=== PATIENT | male | born 1940 | race American Indian/Alaskan Native ===

== ENCOUNTER 2018-04-19 12:51 | Inpatient (IN) | payer MEDICARE ==
[2018-04-19] MEDS ORDERED: NACL 0.9% 250ML 250 ML IV ONE ×2 (13:49→15:28)
[2018-04-19] MEDS ORDERED: TYLENOL PR PRN (13:51)
--- NOTE | 2018-04-19 13:52 | Emergency Department Report ---
ED General Adult HPI - General Chief complaint: Dyspnea/Respdistress Stated complaint: AMS/WEAKNESS Time Seen by Provider: 04/19/18 13:39 Source: EMS (ems notes not available at time of chart dictation), RN notes reviewed, old records reviewed Mode of arrival: Stretcher Limitations: Altered Mental Status, Other (patient is demented. Patient is a poor historian.) - History of Present Illness Initial comments: This is a 78-year-old male. The patient is unknown to this provider previously. 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 As per verbal report from the nurses, who in turn received verbal report from EMS, the patient was saturating in the mid 80s at home. The patient is asymptomatic at this time. He has no complaints. In the emergency room, the patient was found to be febrile to 102 rectally, x- ray of the chest demonstrated right lower lobe infiltrate, urinalysis and labs are pending at this time, and the patient will be admitted and treated empirically as a code sepsis. Given his history of renal insufficiency, and ischemic cardiac myopathy with an ejection fraction of 10-15%, the patient will not handle and aggressive fluid resuscitation at the standard recommended 30 mL/ kg IV fluid bolus. Therefore, the patient will be given aliquots of normal saline at 250 mL at a time, and reassessed. The case was presented to the Hospital physician, Dr. Rubio, who accepted the patient, and agreed with this plan of care. It is our shared opinion that an aggressive fluid resuscitation will likely volume overload the patient and precipitate respiratory failure. Given the patient's underlying chronic medical comorbidities, he may have difficulty being weaned from a ventilator, and a developed respiratory musculature fatigue, paralysis and myopathy. Therefore, it is our wish and go to avoid mechanical ventilation if possible. Severity scale (0 -10): 0 Consistency: constant Improves with: none Worsens with: none Associated Symptoms: confusion, fever/chills, shortness of breath, weakness - Related Data Home Medications Medication Instructions Recorded Confirmed Last Taken Furosemide [Lasix TAB] 20 mg PO QDAY 01/30/16 04/19/18 Unknown levETIRAcetam [Keppra TAB] 1,000 mg PO BID 01/30/16 04/19/18 Unknown Acetaminophen [Tylenol] 500 mg PO Q8H PRN 04/19/18 04/19/18 Unknown AtorvaSTATin [Lipitor] 10 mg PO DAILY 04/19/18 04/19/18 Unknown ISOSORBIDE MONOnitrate [Imdur ER] 30 mg PO DAILY 04/19/18 04/19/18 Unknown guaiFENesin/DEXTROMETHORPHAN 2 each PO HS PRN 04/19/18 04/19/18 Unknown [Coricidin Hbp Softgel] predniSONE [Deltasone] 30 mg PO QDAY 04/19/18 04/19/18 Unknown Previous Rx's Medication Instructions Recorded Last Taken Type Carvedilol [Coreg] 6.25 mg PO BID #60 tablet 02/02/16 Unknown Rx Allergies Allergy/AdvReac Type Severity Reaction Status Date / Time No Known Allergies Allergy Verified 04/19/18 14:17 ED Review of Systems ROS: Stated complaint: AMS/WEAKNESS Other details as noted in HPI Comment: Unobtainable due to pts medical conditions ED Past Medical Hx - Past Medical History Previous Medical History?: Yes Hx Hypertension: Yes Hx CVA: Yes Hx Heart Attack/AMI: Yes Hx Renal Disease: Yes Hx Seizures: Yes - Social History Smoking Status: Never Smoker - Medications Home Medications: Home Medications Medication Instructions Recorded Confirmed Last Taken Type Furosemide [Lasix TAB] 20 mg PO QDAY 01/30/16 04/19/18 Unknown History levETIRAcetam [Keppra TAB] 1,000 mg PO BID 01/30/16 04/19/18 Unknown History Carvedilol [Coreg] 6.25 mg PO BID #60 tablet 02/02/16 04/19/18 Unknown Rx Acetaminophen [Tylenol] 500 mg PO Q8H PRN 04/19/18 04/19/18 Unknown History AtorvaSTATin [Lipitor] 10 mg PO DAILY 04/19/18 04/19/18 Unknown History ISOSORBIDE MONOnitrate [Imdur ER] 30 mg PO DAILY 04/19/18 04/19/18 Unknown History guaiFENesin/DEXTROMETHORPHAN 2 each PO HS PRN 04/19/18 04/19/18 Unknown History [Coricidin Hbp Softgel] predniSONE [Deltasone] 30 mg PO QDAY 04/19/18 04/19/18 Unknown History ED Physical Exam - General Limitations: Physical Limitation General appearance: in no apparent distress - Head Head exam: Present: atraumatic, normocephalic - Eye Eye exam: Present: normal appearance - ENT ENT exam: Present: mucous membranes dry - Neck Neck exam: Present: normal inspection, full ROM - Respiratory Respiratory exam: Present: rhonchi. Absent: respiratory distress - Cardiovascular Cardiovascular Exam: Present: regular rate, normal rhythm, normal heart sounds. Absent: bradycardia, tachycardia, irregular rhythm, systolic murmur, diastolic murmur, rubs, gallop - GI/Abdominal GI/Abdominal exam: Present: soft, normal bowel sounds. Absent: distended, tenderness, guarding, rebound, rigid, pulsatile mass - Rectal Rectal exam: Present: normal inspection (no sacral ulcers noted) - exam: Present: normal inspection External exam: Present: normal external exam - Extremities Exam Extremities exam: Present: normal inspection. Absent: tenderness, pedal edema, joint swelling, calf tenderness - Back Exam Back exam: Present: normal inspection. Absent: tenderness, CVA tenderness (R), paraspinal tenderness, vertebral tenderness - Neurological Exam Neurological exam: Present: alert, motor sensory deficit (chronic residual right -sided weakness), other (there is no facial droop) - Psychiatric Psychiatric exam: Present: normal affect, normal mood - Skin Skin exam: Present: warm, dry, intact, normal color. Absent: rash ED Course Vital Signs 04/19/18 13:07 Temperature 99.3 F Pulse Rate 98 H Respiratory 16 Rate Blood Pressure 110/62 Blood Pressure 124/84 [Right] O2 Sat by Pulse 97 Oximetry - Reevaluation(s) Reevaluation #1: 04/19/18 15:29 Saturating well. No respiratory distress. Patient will get another 250 mL of normal saline. The urinalysis is pending. ED Medical Decision Making - Lab Data Result diagrams: 04/19/18 14:05 04/19/18 14:05 Vital Signs 04/19/18 13:07 Temperature 99.3 F Pulse Rate 98 H Respiratory 16 Rate Blood Pressure 110/62 Blood Pressure 124/84 [Right] O2 Sat by Pulse 97 Oximetry - EKG Data -: EKG Interpreted by [place] - EKG Data 04/19/18 14:35 Sinus, 99 bpm, left axis deviation, QTC prolonged, motion artifact, premature ventricular contraction - Radiology Data Radiology results: report reviewed, image reviewed interpreted by me: X-ray of the chest, interpreted by by this provider, right lower lobe pneumonia ort Referring Physician: AMANDA BEAULIEU Patient Name: BAILEE CAMPOS Date of : 1940 Sex: Male Report Date: 2018-04-19 Report Status: Finalized Findings [facility] [address] [place] [address] XRay Report Signed Patient: BAILEE CAMPOS MR#: [id number] : 1940 Acct:[id number] Age/Sex: 78 / M ADM Date: 04/19/18 Loc: ED Attending Dr: Ordering Physician: AMANDA BEAULIEU MD Date of Service: 04/19/18 Procedure(s): XR chest 1V ap Accession Number(s): [id number] cc: AMANDA BEAULIEU MD Fluoro Time In Minutes: AP CHEST: HISTORY: Shortness of breath Compared to 01/30/16. Mild cardiomegaly and borderline pulmonary venous congestion are identified. There are subtle bibasilar opacities which could represent congestive changes. Early infiltrates are thought less likely but cannot be entirely excluded. No consolidation, pleural effusion or pneumothorax. IMPRESSION: Mild cardiomegaly. Bibasilar opacities as described. I favor congestion. Transcribed By: TTR Dictated By: POLI HOLCOMB JR, MD Electronically Authenticated By: POLI HOLCOMB JR, MD Signed Date/Time: 04/19/18 3147 - Medical Decision Making Differential diagnosis, including but not limited to: Pneumonia, sepsis, bacteremia, urinary tract infection Assessment and plan: 78-year-old male with fever, heart rate greater than 90, focal pulmonary findings, x-ray of the chest suggest pneumonia. Meets systemic inflammatory response syndrome criteria. Attempting airway at this time. Has multiple medical comorbidities. Patient will require admission to the hospital for medical management. Critical care attestation.: If time is entered above; I have spent that time in minutes in the direct care of this critically ill patient, excluding procedure time. ED Disposition Clinical Impression: Sepsis Qualifiers: Sepsis type: sepsis due to unspecified organism Qualified Code(s): A41.9 - Sepsis, unspecified organism Disposition: OP ADMIT IP TO THIS HOSP Is pt being admited?: Yes Condition: Fair Referrals: PRIMARY CARE,MD [Primary Care Provider] - 3-5 Days
[2018-04-19] MEDS ORDERED: ROCEPHIN/NS 2 GM/100 ML 2 GM/100 ML BAG IV SCH (14:00)
[2018-04-19 14:30] LABS: Hematocrit 43.3 % (35.5-45.6); Hemoglobin 13.9 gm/dl (11.8-15.2); Mean Corpuscular HGB Conc 32 % (32-34); Mean Corpuscular Hemoglobin 29 pg (28-32); Mean Corpuscular Volume 91 fl (84-94); Platelet Count 116 K/mm3 (140-440); Red Blood Count 4.74 M/mm3 (3.65-5.03); Red Cell Distribution Width 15.3 % (13.2-15.2)
--- NOTE | 2018-04-19 14:39 | History and Physical Report ---
History of Present Illness Chief complaint: He looks sick History of present illness: 78 YO Male with CVA with RHP, Debility, Dementia, Systolic CHF (EF 15%),CO, Seizure Disorder, HTN, Dysphagia presents to ED for evaluation. Pt is confused and unable to provide history. Pt history provided by family who is at bedside during exam and interview. Pt family states that the patient has become progressively weak and more confused over the past week, with worsening symptoms over the past 2 days. EMS notified and upon arrival the patient was found to be hypoxemis with pulse oxygenation in the 80's as well as fever to 102. Pt transported to [facility] for further care and evaluation. Pt seen and evaluated in ED and found to have Pneumonia complicated by sepsis, and Acute respiratory failure. Pt admitted to medical floor, and initiated on sepsis protocol. Given his history of renal insufficiency, and ischemic cardiac myopathy with an ejection fraction of 10-15%, the patient will not handle and aggressive fluid resuscitation at the standard recommended 30 mL/kg IV fluid bolus. Therefore, the patient will be given aliquots of normal saline at 250 mL at a time, and reassessed. Past History Past Medical History: heart failure, hypertension, seizures, stroke Past Surgical History: No surgical history, Other (reviewed) Social history: , lives with family. denies: smoking, alcohol abuse, prescription drug abuse Family history: hypertension Medications and Allergies Allergies Allergy/AdvReac Type Severity Reaction Status Date / Time No Known Allergies Allergy Verified 04/19/18 14:17 Home Medications Medication Instructions Recorded Confirmed Last Taken Type Furosemide [Lasix TAB] 20 mg PO QDAY 01/30/16 04/19/18 Unknown History levETIRAcetam [Keppra TAB] 1,000 mg PO BID 01/30/16 04/19/18 Unknown History Carvedilol [Coreg] 6.25 mg PO BID #60 tablet 02/02/16 04/19/18 Unknown Rx Acetaminophen [Tylenol] 500 mg PO Q8H PRN 04/19/18 04/19/18 Unknown History AtorvaSTATin [Lipitor] 10 mg PO DAILY 04/19/18 04/19/18 Unknown History ISOSORBIDE MONOnitrate [Imdur ER] 30 mg PO DAILY 04/19/18 04/19/18 Unknown History guaiFENesin/DEXTROMETHORPHAN 2 each PO HS PRN 04/19/18 04/19/18 Unknown History [Coricidin Hbp Softgel] predniSONE [Deltasone] 30 mg PO QDAY 04/19/18 04/19/18 Unknown History Active Meds: Active Medications Acetaminophen (Tylenol) 650 mg DE Q4H PRN PRN Reason: Pain, Mild (1-3) Azithromycin 500 mg/ Sodium (Chloride) 250 mls @ 250 mls/hr IV Q24HR LUISA Ceftriaxone Sodium (Rocephin/Ns 2 Gm/100 Ml) 2 gm in 100 mls @ 200 mls/hr IV Q24HR LUISA; Protocol Review of Systems ROS unobtainable: due to mental status Exam - Constitutional Vitals: Temp Pulse Resp BP Pulse Ox 99.3 F 99 H 18 124/84 97 04/19/18 13:07 04/19/18 13:07 04/19/18 13:07 04/19/18 13:07 04/19/18 13:07 General appearance: Present: mild distress, cachectic - EENT Eyes: Present: PERRL ENT: hearing intact, clear oral mucosa - Neck Neck: Present: supple, normal ROM - Respiratory Respiratory effort: labored Respiratory: bilateral: diminished - Cardiovascular Heart Sounds: Present: S1 & S2. Absent: rub, click - Extremities Extremities: pulses symmetrical, No edema Peripheral Pulses: abnormal (capillary refill greater than 3.6 seconds) - Abdominal General gastrointestinal: Present: soft, non-tender, non-distended, normal bowel sounds Male genitourinary: Present: normal - Integumentary Integumentary: Present: clear, warm, dry, clammy, decreased turgor - Musculoskeletal Musculoskeletal: right sided weakness - Psychiatric Psychiatric: no intact judgment & insight, no memory intact - Neurologic Neurologic: no moves all extremities, no gait normal Results - Labs CBC & Chem 7: 04/19/18 14:05 04/19/18 14:05 Assessment and Plan - Patient Problems (1) Sepsis Current Visit: Yes Status: Acute Qualifiers: Sepsis type: sepsis due to unspecified organism Qualified Code(s): A41.9 - Sepsis, unspecified organism Plan to address problem: IV antibiotics, monitor uop q shift, chest x ray, urinalysis, blood cultures, serial lactic acid, strict I/O, CBC, CMP, (2) Pneumonia Current Visit: Yes Status: Acute Qualifiers: Laterality: right Lung location: lower lobe of lung Plan to address problem: IV antibiotics, chest x ray, supplemental oxygen, blood cultures, nebulizer therapy, (3) Respiratory failure Current Visit: Yes Status: Acute Qualifiers: Respiratory failure complication: hypoxia Plan to address problem: Supplemental oxygen, nebulizer therapy, aspiration precautions, NIPPV as clinically indicated, chest x ray (4) Debility Current Visit: Yes Status: Acute Plan to address problem: SNF Placement requested as per family, case management consulted. (5) Acute on chronic diastolic CHF (congestive heart failure) Current Visit: No Status: Acute Plan to address problem: Strict I/O, daily weight, diuresis as tolerated, monitor uop q shift, Chest x ray, afterload reduction, supplemental oxygen, (6) Hypertension Current Visit: No Status: Acute Qualifiers: Hypertension type: essential hypertension Qualified Code(s): I10 - Essential (primary) hypertension Plan to address problem: monitor bp q shift, resume prehospital antihypertensive therapy (7) DVT prophylaxis Current Visit: No Status: Acute Plan to address problem: SCD to BLE while in bed
--- NOTE | 2018-04-19 14:47 | XRay Report ---
AP CHEST: HISTORY: Shortness of breath Compared to 01/30/16. Mild cardiomegaly and borderline pulmonary venous congestion are identified. There are subtle bibasilar opacities which could represent congestive changes. Early infiltrates are thought less likely but cannot be entirely excluded. No consolidation, pleural effusion or pneumothorax. IMPRESSION: Mild cardiomegaly. Bibasilar opacities as described. I favor congestion.
[2018-04-19 14:48] LABS: Albumin 3.4 g/dL (3.9-5); Calcium 8.5 mg/dL (8.4-10.2)
[2018-04-19] MEDS: ZITHROMAX 500 MG in NACL 0.9% 250ML 250 ML IV SCH (15:11)
[2018-04-19 15:59] LABS: Basophils % (Manual) 0 % (0.0-1.8); Eosinophils % (Manual) 0 % (0.0-4.3); Total Cells Counted 100
[2018-04-19 16:06] LABS: Anisocytosis 1+
[2018-04-19 16:07] LABS: Ovalocytes 1+; Platelet Estimate Consistent w Auto
[2018-04-19] MEDS: cefTRIAXone 2 GM in NACL 0.9% 20 ML IV SCH (16:08)
[2018-04-19] MEDS ORDERED: GUAIFENESIN PO PRN (20:57)
[2018-04-19] MEDS ORDERED: DEXTROMETHORPHAN PO PRN (20:57)
[2018-04-19] MEDS ORDERED: TYLENOL PO PRN (20:57)
[2018-04-19 21:10] LABS: Amorphous Crystals,Urine 2+; Bilirubin,Urine NEG (Negative); Color,Urine Yellow (Yellow)
[2018-04-19 21:11] LABS: Blood,Urine MOD (Negative)
[2018-04-19] MEDS: KEPPRA PO SCH (22:57)
[2018-04-19] MEDS: COREG PO SCH (22:57)
[2018-04-20] MEDS: IMDUR PO SCH (10:45)
[2018-04-20] MEDS: DELTASONE PO SCH (10:45)
[2018-04-20] MEDS: LASIX PO SCH (10:45)
[2018-04-20] MEDS: COREG PO SCH ×2 (10:45→22:44)
[2018-04-20] MEDS: KEPPRA PO SCH ×2 (10:45→22:43)
[2018-04-20] MEDS: ZITHROMAX 500 MG in NACL 0.9% 250ML 250 ML IV SCH (12:47)
[2018-04-20] MEDS: cefTRIAXone 2 GM in NACL 0.9% 20 ML IV SCH (16:46)
--- NOTE | 2018-04-20 18:37 | Progress Note ---
Assessment and Plan /Acute encephalopathy likely from underlying PNA/sepsis treat underlying cause / Sepsis likely due to PNA IV antibiotics, monitor uop q shift, chest x ray, urinalysis, blood cultures, serial lactic acid, strict I/O, CBC, CMP, / Pneumonia IV antibiotics, chest x ray, supplemental oxygen, blood cultures, nebulizer therapy, /Acute Respiratory failure due to PNA and underlying CHF Cont Supplemental oxygen, nebulizer therapy, aspiration precautions, NIPPV as clinically indicated, chest x ray / Debility SNF Placement requested as per family, case management consulted. /Acute on chronic systolic CHF (congestive heart failure) Ef 10-15% on 2d echo 2015, will order repeat echo Strict I/O, daily weight, diuresis as tolerated, monitor uop q shift, Chest x ray, afterload reduction, supplemental oxygen, / Hypertension monitor bp q shift, resume prehospital antihypertensive therapy /CKD , Cr at baseline / DVT prophylaxis SCD to BLE while in bed Physical Exam: General appearance: Present: mild distress, cachectic - EENT Eyes: Present: PERRL ENT: hearing intact, clear oral mucosa - Neck Neck: Present: supple, normal ROM - Respiratory Respiratory effort: labored Respiratory: bilateral: diminished - Cardiovascular Heart Sounds: Present: S1 & S2. Absent: rub, click - Extremities Extremities: pulses symmetrical, No edema Peripheral Pulses: abnormal (capillary refill greater than 3.6 seconds) - Abdominal General gastrointestinal: Present: soft, non-tender, non-distended, normal bowel sounds Male genitourinary: Present: normal - Integumentary Integumentary: Present: clear, warm, dry, clammy, decreased turgor - Musculoskeletal Musculoskeletal: right sided weakness - Psychiatric Psychiatric: no intact judgment & insight, no memory intact - Neurologic Neurologic: no moves all extremities, no gait normal Subjective Date of service: 04/20/18 Interval history: Pt seen and examined Denies chest pain, but admits SOB Objective - Constitutional Vitals: Vital Signs - 12hr 04/20/18 04/20/18 04/20/18 07:50 11:40 12:30 Temperature 97.9 F Pulse Rate 67 68 54 L Respiratory 18 16 18 Rate Blood Pressure 130/88 127/89 142/84 O2 Sat by Pulse 100 99 Oximetry 04/20/18 04/20/18 04/20/18 12:40 13:31 13:41 Temperature Pulse Rate 58 L 59 L 56 L Respiratory 16 12 13 Rate Blood Pressure 146/79 146/79 146/79 O2 Sat by Pulse 99 100 99 Oximetry 04/20/18 04/20/18 04/20/18 13:51 14:01 14:11 Temperature Pulse Rate 62 78 52 L Respiratory 12 16 21 Rate Blood Pressure 147/81 146/79 146/79 O2 Sat by Pulse 98 97 99 Oximetry 04/20/18 04/20/18 14:21 14:31 Temperature Pulse Rate 53 L 54 L Respiratory 21 19 Rate Blood Pressure 146/79 146/79 O2 Sat by Pulse 99 99 Oximetry - Labs CBC & Chem 7: 04/19/18 14:05 04/19/18 14:05
[2018-04-20] MEDS ORDERED: GUAIFENESIN DM SYRUP PO PRN (22:00)
[2018-04-20] MEDS ORDERED: ROBITUSSIN PO PRN (22:00)
[2018-04-21] MEDS ORDERED: D5NS 1,000 ML IV SCH ×2 (03:00→04:00)
[2018-04-21 03:26] LABS: Calcium 8.2 mg/dL (8.4-10.2)
[2018-04-21] MEDS: DUONEB *Not for PRN Use IH SCH ×3 (07:20→19:54)
--- NOTE | 2018-04-21 08:03 | Progress Note ---
Assessment and Plan Assessment and plan: --Acute on chronic systolic congestive heart failure; ejection fraction 10-15%[ 2016] Dilated cardiomyopathy, continue anti-failure medications, input output monitoring Follow echocardiogram, consider cardiology evaluation if needed --Acute metabolic encephalopathy; Multifactorial , due to underlying PNA/sepsis, Treat the underlying cause --Sepsis; due to PNA , and he IV antibiotics and follow cultures IV antibiotics, follow cultures --Pneumonia Supportive care, antibiotics, cultures, cough medicine as needed --Acute hypoxic Respiratory failure; Secondary to underlying pneumonia as well as acute exacerbation of congestive heart failure Continue current management, oxygen, BiPAP as needed -- Hypertension; moderate control Continue current antihypertensives and when necessary medications --Acute on CKD stage III ; due to ATN, creatinine trending down Closely monitor renal function, avoid nephrotoxins, nephrology evaluation if needed --DVT prophylaxis; Lovenox SCD to BLE while in bed --Advanced age and Debility; Physical therapy and supportive care --DC planning ;per case management Possible SNF Placement requested as per family, History Interval history: Patient seen and examined this morning medical records reviewed No new events reported by the nursing Patient is comfortable and vital signs reviewed Hospitalist Physical - Constitutional Vitals: Temp Pulse Resp BP Pulse Ox 98.6 F 74 18 131/86 98 04/21/18 01:46 04/21/18 07:25 04/21/18 07:25 04/21/18 01:46 04/21/18 07:26 General appearance: Present: no acute distress, cachectic, disheveled - EENT Eyes: Present: PERRL, EOM intact - Neck Neck: Present: supple, normal ROM - Respiratory Respiratory effort: normal Respiratory: bilateral: diminished, negative: rales, rhonchi, wheezing - Cardiovascular Rhythm: regular Heart Sounds: Present: S1 & S2 - Extremities Extremities: no ischemia, No edema - Abdominal General gastrointestinal: soft, non-tender, non-distended, normal bowel sounds - Integumentary Integumentary: Present: clear, warm - Psychiatric Psychiatric: cooperative, other (confused at times) - Neurologic Neurologic: moves all extremities Results - Labs CBC & Chem 7: 04/19/18 14:05 04/21/18 02:51 Labs: Laboratory Last Values WBC 9.2 K/mm3 (4.5-11.0) 04/19/18 14:05 RBC 4.74 M/mm3 (3.65-5.03) 04/19/18 14:05 Hgb 13.9 gm/dl (11.8-15.2) 04/19/18 14:05 Hct 43.3 % (35.5-45.6) 04/19/18 14:05 MCV 91 fl (84-94) 04/19/18 14:05 MCH 29 pg (28-32) 04/19/18 14:05 MCHC 32 % (32-34) 04/19/18 14:05 RDW 15.3 % (13.2-15.2) H 04/19/18 14:05 Plt Count 116 K/mm3 (140-440) L 04/19/18 14:05 Coffee % (Auto) Nursery Teacher 04/19/18 14:05 Add Manual Diff Complete 04/19/18 14:05 Total Counted 100 04/19/18 14:05 Seg Neuts % (Manual) 72.0 % (40.0-70.0) H 04/19/18 14:05 Band Neutrophils % 0 % 04/19/18 14:05 Lymphocytes % (Manual) 12.0 % (13.4-35.0) L 04/19/18 14:05 Reactive Lymphs % (Man) 0 % 04/19/18 14:05 Monocytes % (Manual) 16.0 % (0.0-7.3) H 04/19/18 14:05 Eosinophils % (Manual) 0 % (0.0-4.3) 04/19/18 14:05 Basophils % (Manual) 0 % (0.0-1.8) 04/19/18 14:05 Metamyelocytes % 0 % 04/19/18 14:05 Myelocytes % 0 % 04/19/18 14:05 Promyelocytes % 0 % 04/19/18 14:05 Blast Cells % 0 % 04/19/18 14:05 Nucleated RBC % Not Reportable 04/19/18 14:05 Seg Neutrophils # Man 6.6 K/mm3 (1.8-7.7) 04/19/18 14:05 Band Neutrophils # 0.0 K/mm3 04/19/18 14:05 Lymphocytes # (Manual) 1.1 K/mm3 (1.2-5.4) L 04/19/18 14:05 Abs React Lymphs (Man) 0.0 K/mm3 04/19/18 14:05 Monocytes # (Manual) 1.5 K/mm3 (0.0-0.8) H 04/19/18 14:05 Eosinophils # (Manual) 0.0 K/mm3 (0.0-0.4) 04/19/18 14:05 Basophils # (Manual) 0.0 K/mm3 (0.0-0.1) 04/19/18 14:05 Metamyelocytes # 0.0 K/mm3 04/19/18 14:05 Myelocytes # 0.0 K/mm3 04/19/18 14:05 Promyelocytes # 0.0 K/mm3 04/19/18 14:05 Blast Cells # 0.0 K/mm3 04/19/18 14:05 WBC Morphology Not Reportable 04/19/18 14:05 Hypersegmented Neuts Not Reportable 04/19/18 14:05 Hyposegmented Neuts Not Reportable 04/19/18 14:05 Hypogranular Neuts Not Reportable 04/19/18 14:05 Smudge Cells Not Reportable 04/19/18 14:05 Toxic Granulation Not Reportable 04/19/18 14:05 Toxic Vacuolation Not Reportable 04/19/18 14:05 Dohle Bodies Not Reportable 04/19/18 14:05 Pelger-Huet Anomaly Not Reportable 04/19/18 14:05 Karla Rods Not Reportable 04/19/18 14:05 Platelet Estimate Consistent w auto 04/19/18 14:05 Clumped Platelets Not Reportable 04/19/18 14:05 Plt Clumps, EDTA Not Reportable 04/19/18 14:05 Large Platelets Not Reportable 04/19/18 14:05 Giant Platelets Not Reportable 04/19/18 14:05 Platelet Satelliting Not Reportable 04/19/18 14:05 Plt Morphology Comment Not Reportable 04/19/18 14:05 RBC Morphology Not Reportable 04/19/18 14:05 Dimorphic RBCs Not Reportable 04/19/18 14:05 Polychromasia Not Reportable 04/19/18 14:05 Hypochromasia Not Reportable 04/19/18 14:05 Poikilocytosis Not Reportable 04/19/18 14:05 Anisocytosis 1+ 04/19/18 14:05 Microcytosis Not Reportable 04/19/18 14:05 Macrocytosis Not Reportable 04/19/18 14:05 Spherocytes Not Reportable 04/19/18 14:05 Pappenheimer Bodies Not Reportable 04/19/18 14:05 Sickle Cells Not Reportable 04/19/18 14:05 Target Cells Not Reportable 04/19/18 14:05 Tear Drop Cells Not Reportable 04/19/18 14:05 Ovalocytes 1+ 04/19/18 14:05 Helmet Cells Not Reportable 04/19/18 14:05 Gallagher-Denio Bodies Not Reportable 04/19/18 14:05 [place] Rings Not Reportable 04/19/18 14:05 Debora Cells Not Reportable 04/19/18 14:05 Bite Cells Not Reportable 04/19/18 14:05 Crenated Cell Not Reportable 04/19/18 14:05 Elliptocytes Not Reportable 04/19/18 14:05 Acanthocytes (Spur) Not Reportable 04/19/18 14:05 Rouleaux Not Reportable 04/19/18 14:05 Hemoglobin C Crystals Not Reportable 04/19/18 14:05 Schistocytes Not Reportable 04/19/18 14:05 Malaria parasites Not Reportable 04/19/18 14:05 Ben Bodies Not Reportable 04/19/18 14:05 Hem Pathologist Commnt No 04/19/18 14:05 Sodium 146 mmol/L (137-145) H 04/21/18 02:51 Potassium 4.7 mmol/L (3.6-5.0) 04/21/18 02:51 Chloride 110.2 mmol/L (98-107) H 04/21/18 02:51 Carbon Dioxide 24 mmol/L (22-30) 04/21/18 02:51 Anion Gap 17 mmol/L 04/21/18 02:51 BUN 38 mg/dL (9-20) H 04/21/18 02:51 Creatinine 1.9 mg/dL (0.8-1.5) H 04/21/18 02:51 Estimated GFR 42 ml/min 04/21/18 02:51 BUN/Creatinine Ratio 20 % 04/21/18 02:51 Glucose 83 mg/dL (75-100) 04/21/18 02:51 POC Glucose 98 (70-105) 04/19/18 14:44 Lactic Acid 1.70 mmol/L (0.7-2.0) 04/19/18 15:13 Calcium 8.2 mg/dL (8.4-10.2) L 04/21/18 02:51 Total Bilirubin 1.10 mg/dL (0.1-1.2) 04/19/18 14:05 AST 64 units/L (5-40) H 04/19/18 14:05 ALT 78 units/L (7-56) H 04/19/18 14:05 Alkaline Phosphatase 95 units/L (35-129) 04/19/18 14:05 Total Creatine Kinase 57 units/L (55-170) 04/19/18 14:05 Total Protein 6.4 g/dL (6.3-8.2) 04/19/18 14:05 Albumin 3.4 g/dL (3.9-5) L 04/19/18 14:05 Albumin/Globulin Ratio 1.1 % 04/19/18 14:05 Urine Color Yellow (Yellow) 04/19/18 20:39 Urine Turbidity Clear (Clear) 04/19/18 20:39 Urine pH 5.0 (5.0-7.0) 04/19/18 20:39 Ur Specific [place] 1.019 (1.003-1.030) 04/19/18 20:39 Urine Protein 100 mg/dl mg/dL (Negative) 04/19/18 20:39 Urine Glucose (UA) Neg mg/dL (Negative) 04/19/18 20:39 Urine Ketones Neg mg/dL (Negative) 04/19/18 20:39 Urine Blood Mod (Negative) 04/19/18 20:39 Urine Nitrite Neg (Negative) 04/19/18 20:39 Urine Bilirubin Neg (Negative) 04/19/18 20:39 Urine Urobilinogen 2.0 mg/dL (<2.0) 04/19/18 20:39 Ur Leukocyte Esterase Neg (Negative) 04/19/18 20:39 Urine WBC (Auto) 2.0 /HPF (0.0-6.0) 04/19/18 20:39 Urine RBC (Auto) 2.0 /HPF (0.0-6.0) 04/19/18 20:39 Urine WBC Clumps 2+ /HPF 04/19/18 20:39 Amorphous Crystals 2+ 04/19/18 20:39
[2018-04-21] MEDS: DELTASONE PO SCH (10:16)
[2018-04-21] MEDS: LASIX PO SCH (10:16)
[2018-04-21] MEDS: KEPPRA PO SCH ×2 (10:16→21:59)
[2018-04-21] MEDS: ZITHROMAX PO SCH (10:16)
[2018-04-21] MEDS: IMDUR PO SCH (10:16)
[2018-04-21] MEDS: COREG PO SCH ×3 (10:17→21:59)
[2018-04-21] MEDS: HEPARIN SUB-Q SCH ×2 (10:17→22:00)
[2018-04-21] MEDS ORDERED: COREG PO SCH (14:43)
[2018-04-21] MEDS: cefTRIAXone 2 GM in NACL 0.9% 20 ML IV SCH (14:54)
--- NOTE | 2018-04-21 15:24 | Event Note ---
Date: 04/21/18 Nurse reported an episode of 27 beat V. tach on the monitoring coordinator. The patient was asymptomatic during that period, has severe dilated cardiomyopathy Ejection fraction of 10-15%2015, patient is already on beta blockers , echocardiogram is pending today Discussed with asset liability analyst and requested a consult, advised to increase beta blockers Check electrolytes and TSH. Patient needs ICD Increased Coreg dose, requested TSH and electrolytes Plan of care reviewed with the nurse
[2018-04-21] MEDS: CORDARONE PO SCH (22:00)
[2018-04-22] MEDS: DUONEB *Not for PRN Use IH SCH ×4 (02:45→20:35)
[2018-04-22 06:07] LABS: Calcium 7.9 mg/dL (8.4-10.2)
--- NOTE | 2018-04-22 10:40 | Fluoroscopy Report ---
MODIFIED BARIUM SWALLOW History: dysphagia, cough. Findings: Video radiography was provided by the radiologist for speech therapy to assess the swallowing mechanism. 1 fluoroscopic image was captured. Impression: Successful modified barium swallow.
[2018-04-22] MEDS: DELTASONE PO SCH (10:50)
[2018-04-22] MEDS: ZITHROMAX PO SCH (10:50)
[2018-04-22] MEDS: KEPPRA PO SCH ×2 (10:51→21:52)
[2018-04-22] MEDS: LASIX PO SCH (10:55)
[2018-04-22] MEDS: COREG PO SCH ×2 (11:04→21:52)
[2018-04-22] MEDS: CORDARONE PO SCH ×2 (11:04→21:52)
[2018-04-22] MEDS: IMDUR PO SCH (11:05)
[2018-04-22] MEDS: HEPARIN SUB-Q SCH ×2 (11:05→21:53)
--- NOTE | 2018-04-22 13:06 | Progress Note ---
Assessment and Plan Assessment and plan: --Nonsustained VT; on monitor Patient asymptomatic, in the setting of dilated cardiomyopathy Patient would benefit by ICD placement, cardiology consulted --Acute on chronic systolic congestive heart failure; EF 10-15%[2016] Dilated cardiomyopathy, continue anti-failure medications, input output monitoring echocardiogram for EF, follow cardiology recommendations --Acute metabolic encephalopathy; mild improvement Multifactorial , due to underlying PNA/sepsis, Treat the underlying cause --Sepsis; due to PNA , dyspnea antibiotics follow cultures --Pneumonia antibiotics, cultures, cough medicine as needed --Acute hypoxic Respiratory failure; Secondary to underlying pneumonia as well as acute exacerbation of congestive heart failure Continue current management, oxygen, BiPAP as needed -- Hypertension; moderate control Continue current antihypertensives and when necessary medications --Acute on CKD stage III ; due to ATN, creatinine trending down Creatinine 1.7 today ,avoid nephrotoxins, nephrology evaluation if needed --DVT prophylaxis; Lovenox and SCDs --DC planning ;per case management Possible SNF Placement requested as per family, History Interval history: Patient seen and examined Records reviewed No new events reported Patient comfortable minimally communicative Jewel signs reviewed Hospitalist Physical - Constitutional Vitals: Temp Pulse Resp BP Pulse Ox 97.9 F 54 L 20 121/67 99 04/22/18 07:45 04/22/18 11:42 04/22/18 11:01 04/22/18 11:05 04/22/18 10:00 General appearance: Present: no acute distress, cachectic, disheveled - EENT Eyes: Present: PERRL, EOM intact - Neck Neck: Present: supple, normal ROM - Respiratory Respiratory effort: normal Respiratory: bilateral: diminished, rales, negative: rhonchi, wheezing - Cardiovascular Rhythm: regular Heart Sounds: Present: S1 & S2 - Extremities Extremities: no ischemia, No edema - Abdominal General gastrointestinal: soft, non-tender, non-distended, normal bowel sounds - Integumentary Integumentary: Present: clear, warm - Psychiatric Psychiatric: appropriate mood/affect, cooperative - Neurologic Neurologic: CNII-XII intact, moves all extremities Results - Labs CBC & Chem 7: 04/19/18 14:05 04/22/18 05:08 Labs: Laboratory Last Values WBC 9.2 K/mm3 (4.5-11.0) 04/19/18 14:05 RBC 4.74 M/mm3 (3.65-5.03) 04/19/18 14:05 Hgb 13.9 gm/dl (11.8-15.2) 04/19/18 14:05 Hct 43.3 % (35.5-45.6) 04/19/18 14:05 MCV 91 fl (84-94) 04/19/18 14:05 MCH 29 pg (28-32) 04/19/18 14:05 MCHC 32 % (32-34) 04/19/18 14:05 RDW 15.3 % (13.2-15.2) H 04/19/18 14:05 Plt Count 116 K/mm3 (140-440) L 04/19/18 14:05 [place] % (Auto) Veneer Marker 04/19/18 14:05 Add Manual Diff Complete 04/19/18 14:05 Total Counted 100 04/19/18 14:05 Seg Neuts % (Manual) 72.0 % (40.0-70.0) H 04/19/18 14:05 Band Neutrophils % 0 % 04/19/18 14:05 Lymphocytes % (Manual) 12.0 % (13.4-35.0) L 04/19/18 14:05 Reactive Lymphs % (Man) 0 % 04/19/18 14:05 Monocytes % (Manual) 16.0 % (0.0-7.3) H 04/19/18 14:05 Eosinophils % (Manual) 0 % (0.0-4.3) 04/19/18 14:05 Basophils % (Manual) 0 % (0.0-1.8) 04/19/18 14:05 Metamyelocytes % 0 % 04/19/18 14:05 Myelocytes % 0 % 04/19/18 14:05 Promyelocytes % 0 % 04/19/18 14:05 Blast Cells % 0 % 04/19/18 14:05 Nucleated RBC % Not Reportable 04/19/18 14:05 Seg Neutrophils # Man 6.6 K/mm3 (1.8-7.7) 04/19/18 14:05 Band Neutrophils # 0.0 K/mm3 04/19/18 14:05 Lymphocytes # (Manual) 1.1 K/mm3 (1.2-5.4) L 04/19/18 14:05 Abs React Lymphs (Man) 0.0 K/mm3 04/19/18 14:05 Monocytes # (Manual) 1.5 K/mm3 (0.0-0.8) H 04/19/18 14:05 Eosinophils # (Manual) 0.0 K/mm3 (0.0-0.4) 04/19/18 14:05 Basophils # (Manual) 0.0 K/mm3 (0.0-0.1) 04/19/18 14:05 Metamyelocytes # 0.0 K/mm3 04/19/18 14:05 Myelocytes # 0.0 K/mm3 04/19/18 14:05 Promyelocytes # 0.0 K/mm3 04/19/18 14:05 Blast Cells # 0.0 K/mm3 04/19/18 14:05 WBC Morphology Not Reportable 04/19/18 14:05 Hypersegmented Neuts Not Reportable 04/19/18 14:05 Hyposegmented Neuts Not Reportable 04/19/18 14:05 Hypogranular Neuts Not Reportable 04/19/18 14:05 Smudge Cells Not Reportable 04/19/18 14:05 Toxic Granulation Not Reportable 04/19/18 14:05 Toxic Vacuolation Not Reportable 04/19/18 14:05 Dohle Bodies Not Reportable 04/19/18 14:05 Pelger-Huet Anomaly Not Reportable 04/19/18 14:05 Karla Rods Not Reportable 04/19/18 14:05 Platelet Estimate Consistent w auto 04/19/18 14:05 Clumped Platelets Not Reportable 04/19/18 14:05 Plt Clumps, EDTA Not Reportable 04/19/18 14:05 Large Platelets Not Reportable 04/19/18 14:05 Giant Platelets Not Reportable 04/19/18 14:05 Platelet Satelliting Not Reportable 04/19/18 14:05 Plt Morphology Comment Not Reportable 04/19/18 14:05 RBC Morphology Not Reportable 04/19/18 14:05 Dimorphic RBCs Not Reportable 04/19/18 14:05 Polychromasia Not Reportable 04/19/18 14:05 Hypochromasia Not Reportable 04/19/18 14:05 Poikilocytosis Not Reportable 04/19/18 14:05 Anisocytosis 1+ 04/19/18 14:05 Microcytosis Not Reportable 04/19/18 14:05 Macrocytosis Not Reportable 04/19/18 14:05 Spherocytes Not Reportable 04/19/18 14:05 Pappenheimer Bodies Not Reportable 04/19/18 14:05 Sickle Cells Not Reportable 04/19/18 14:05 Target Cells Not Reportable 04/19/18 14:05 Tear Drop Cells Not Reportable 04/19/18 14:05 Ovalocytes 1+ 04/19/18 14:05 Helmet Cells Not Reportable 04/19/18 14:05 Gallagher-[place] Bodies Not Reportable 04/19/18 14:05 [place] Rings Not Reportable 04/19/18 14:05 [place] Cells Not Reportable 04/19/18 14:05 Bite Cells Not Reportable 04/19/18 14:05 Crenated Cell Not Reportable 04/19/18 14:05 Elliptocytes Not Reportable 04/19/18 14:05 Acanthocytes (Spur) Not Reportable 04/19/18 14:05 Rouleaux Not Reportable 04/19/18 14:05 Hemoglobin C Crystals Not Reportable 04/19/18 14:05 Schistocytes Not Reportable 04/19/18 14:05 Malaria parasites Not Reportable 04/19/18 14:05 Ben Bodies Not Reportable 04/19/18 14:05 Hem Pathologist Commnt No 04/19/18 14:05 Sodium 144 mmol/L (137-145) 04/22/18 05:08 Potassium 5.1 mmol/L (3.6-5.0) H 04/22/18 05:08 Chloride 108.4 mmol/L (98-107) H 04/22/18 05:08 Carbon Dioxide 25 mmol/L (22-30) 04/22/18 05:08 Anion Gap 16 mmol/L 04/22/18 05:08 BUN 34 mg/dL (9-20) H 04/22/18 05:08 Creatinine 1.7 mg/dL (0.8-1.5) H 04/22/18 05:08 Estimated GFR 48 ml/min 04/22/18 05:08 BUN/Creatinine Ratio 20 % 04/22/18 05:08 Glucose 136 mg/dL (75-100) H 04/22/18 05:08 POC Glucose 98 (70-105) 04/19/18 14:44 Lactic Acid 1.70 mmol/L (0.7-2.0) 04/19/18 15:13 Calcium 7.9 mg/dL (8.4-10.2) L 04/22/18 05:08 Magnesium 2.20 mg/dL (1.7-2.3) 04/22/18 05:08 Total Bilirubin 1.10 mg/dL (0.1-1.2) 04/19/18 14:05 AST 64 units/L (5-40) H 04/19/18 14:05 ALT 78 units/L (7-56) H 04/19/18 14:05 Alkaline Phosphatase 95 units/L (35-129) 04/19/18 14:05 Total Creatine Kinase 57 units/L (55-170) 04/19/18 14:05 Total Protein 6.4 g/dL (6.3-8.2) 04/19/18 14:05 Albumin 3.4 g/dL (3.9-5) L 04/19/18 14:05 Albumin/Globulin Ratio 1.1 % 04/19/18 14:05 TSH 0.569 mlU/mL (0.270-4.200) 04/21/18 19:39 Urine Color Yellow (Yellow) 04/19/18 20:39 Urine Turbidity Clear (Clear) 04/19/18 20:39 Urine pH 5.0 (5.0-7.0) 04/19/18 20:39 Ur Specific [place] 1.019 (1.003-1.030) 04/19/18 20:39 Urine Protein 100 mg/dl mg/dL (Negative) 04/19/18 20:39 Urine Glucose (UA) Neg mg/dL (Negative) 04/19/18 20:39 Urine Ketones Neg mg/dL (Negative) 04/19/18 20:39 Urine Blood Mod (Negative) 04/19/18 20:39 Urine Nitrite Neg (Negative) 04/19/18 20:39 Urine Bilirubin Neg (Negative) 04/19/18 20:39 Urine Urobilinogen 2.0 mg/dL (<2.0) 04/19/18 20:39 Ur Leukocyte Esterase Neg (Negative) 05/31/18 20:39 Urine WBC (Auto) 2.0 /HPF (0.0-6.0) 04/19/18 20:39 Urine RBC (Auto) 2.0 /HPF (0.0-6.0) 04/19/18 20:39 Urine WBC Clumps 2+ /HPF 04/19/18 20:39 Amorphous Crystals 2+ 04/19/18 20:39
[2018-04-22] MEDS: cefTRIAXone 2 GM in NACL 0.9% 20 ML IV SCH (15:14)
--- NOTE | 2018-04-22 17:31 | Consultation ---
History of Present Illness Consult date: 04/22/18 Consult reason: tachycardia (ventricular tachycardia) History of present illness: The patient is a 78-year-old man with multiple medical problems. He has mild dementia, seizure disorder, prior CVA, chronic hypertension and chronic kidney disease. He also has a severe dilated cardiomyopathy. His cardiomyopathy dates back to over 3 years ago, when he presented with heart failure and found to have an ejection fraction estimated at 15-20%. A myocardial perfusion study showed a large fixed inferior defect. He was considered a high risk for contrast nephropathy, and in the absence of angina, was recommended for conservative medical therapy without contrast angiography. Further outpatient follow-up has been inconsistent, and currently reported that the patient has no outpatient cardiac follow-up and has been noncompliant with medical therapy. He presents to the hospital at this time with shortness of breath, chest x-ray on presentation revealed pulmonary vascular congestion. During his initial 24 hours on telemetry, he was noted with recurrent nonsustained ventricular tachycardia, the longest being 27 beats. Otherwise, he looks and feels comfortable, no acute distress at the current time. ECG is normal sinus rhythm , left ventricular hypertrophy and nonspecific intraventricular conduction delay. Laboratory values show presenting creatinine range of 1.7-2.3, consistent with his chronic kidney disease and a platelet count of 116, down from his baseline of 174 in 2014. Past History Past Medical History: heart failure, hypertension, seizures, stroke Past Surgical History: No surgical history, Other (reviewed) Social history: , lives with family. denies: smoking, alcohol abuse, prescription drug abuse Family history: hypertension Medications and Allergies Allergies Allergy/AdvReac Type Severity Reaction Status Date / Time No Known Allergies Allergy Verified 04/19/18 14:17 Home Medications Medication Instructions Recorded Confirmed Last Taken Type Furosemide [Lasix TAB] 20 mg PO QDAY 01/30/16 04/19/18 Unknown History levETIRAcetam [Keppra TAB] 1,000 mg PO BID 01/30/16 04/19/18 Unknown History Carvedilol [Coreg] 6.25 mg PO BID #60 tablet 02/02/16 04/19/18 Unknown Rx Acetaminophen [Tylenol] 500 mg PO Q8H PRN 04/19/18 04/19/18 Unknown History AtorvaSTATin [Lipitor] 10 mg PO DAILY 04/19/18 04/19/18 Unknown History ISOSORBIDE MONOnitrate [Imdur ER] 30 mg PO DAILY 04/19/18 04/19/18 Unknown History guaiFENesin/DEXTROMETHORPHAN 2 each PO HS PRN 04/19/18 04/19/18 Unknown History [Coricidin Hbp Softgel] predniSONE [Deltasone] 30 mg PO QDAY 04/19/18 04/19/18 Unknown History Active Meds: Active Medications Acetaminophen (Tylenol) 650 mg AL Q4H PRN PRN Reason: Pain, Mild (1-3) Acetaminophen (Tylenol) 500 mg PO Q8H PRN PRN Reason: Pain Albuterol/Ipratropium (Duoneb *Not For Prn Use*) 1 ampul IH Q6HRT [facility] Last Admin: 04/22/18 15:56 Dose: 1 ampul Amiodarone HCl (Cordarone) 200 mg PO BID [facility] Last Admin: 04/22/18 11:04 Dose: 200 mg Atorvastatin Calcium (Lipitor) 10 mg PO DAILY [facility] Last Admin: 04/22/18 10:50 Dose: 10 mg Azithromycin (Zithromax) 500 mg PO QDAY [facility] Last Admin: 04/22/18 10:50 Dose: 500 mg Carvedilol (Coreg) 12.5 mg PO BID [facility] Last Admin: 04/22/18 11:04 Dose: 12.5 mg Furosemide (Lasix) 20 mg PO QDAY [facility] Last Admin: 04/22/18 10:55 Dose: 20 mg Guaifenesin (Robitussin) 200 mg PO QHS PRN PRN Reason: CONGESTION Guaifenesin (Guaifenesin Dm Syrup) 10 ml PO QHS PRN PRN Reason: CONGESTION Heparin Sodium (Porcine) (Heparin) 5,000 unit SUB-Q Q12HR [facility] Last Admin: 04/22/18 11:05 Dose: 5,000 unit Ceftriaxone Sodium 2 gm/ (Sodium Chloride) 20 mls @ 2 mls/min IV Q24H [facility] Last Admin: 04/22/18 15:14 Dose: 2 mls/min Isosorbide Mononitrate (Imdur) 30 mg PO DAILY [facility] Last Admin: 04/22/18 11:05 Dose: 30 mg Levetiracetam (Keppra) 1,000 mg PO BID [facility] Last Admin: 04/22/18 10:51 Dose: 1,000 mg Prednisone (Deltasone) 30 mg PO QDAY [facility] Last Admin: 04/22/18 10:50 Dose: 30 mg Review of Systems Cardiovascular: orthopnea, shortness of breath, no chest pain, no palpitations, no rapid/irregular heart beat, no edema, no syncope, no lightheadedness Physical Examination Vital Signs Temp Pulse Resp BP Pulse Ox 99.3 F 99 H 18 124/84 97 04/19/18 13:07 04/19/18 13:07 04/19/18 13:07 04/19/18 13:07 04/19/18 13:07 General appearance: no acute distress HEENT: Positive: PERRL Neck: Positive: neck supple Cardiac: Positive: Reg Rate and Rhythm Lungs: Positive: Decreased Breath Sounds Neuro: Positive: Grossly Intact Abdomen: Positive: Soft Male genitourinary: Positive: deferred Skin: Positive: Clear Extremities: Absent: edema Results 04/19/18 14:05 04/22/18 05:08 Comprehensive Metabolic Panel 04/21/18 04/22/18 Range/Units 19:39 05:08 Sodium 144 (137-145) mmol/L Potassium 4.6 5.1 H (3.6-5.0) mmol/L Chloride 108.4 H (98-107) mmol/L Carbon Dioxide 25 (22-30) mmol/L BUN 34 H (9-20) mg/dL Creatinine 1.7 H (0.8-1.5) mg/dL Glucose 136 H (75-100) mg/dL Calcium 7.9 L (8.4-10.2) mg/dL EKG interpretations - Telemetry EKG Rhythm: Sinus Rhythm Assessment and Plan - Patient Problems (1) Acute on chronic systolic heart failure Current Visit: Yes Status: Acute Plan to address problem: Medical therapy for heart failure to include afterload agents, beta blockers and oral antiplatelet therapy and diuretics. (2) Nonsustained ventricular tachycardia Current Visit: Yes Status: Acute Plan to address problem: Optimize beta patrice therapy, maintain electrolytes including potassium and magnesium. The patient has had a persistent cardiomyopathy for over 3 years, but has not been fully compliant with optimal medical therapy. (3) Coronary artery disease Current Visit: Yes Status: Acute Plan to address problem: Patient has had a dilated cardiomyopathy and a large fixed inferior defect on prior thallium scan, but was determined a poor candidate for invasive coronary angiography. His current creatinine is 1.7, down from 2.3 on presentation. He may ultimately tolerate limited diagnostic angiography for assessment of coronary disease at this time, particularly in the setting of recurrent malignant ventricular arrhythmias. Due to his dementia, he is unable to consent for the procedure so we will have further discussions with his family members before additional invasive evaluation.
[2018-04-23] MEDS: DUONEB *Not for PRN Use IH SCH ×4 (02:50→20:09)
--- NOTE | 2018-04-23 08:26 | Progress Note ---
Assessment and Plan Assessment and plan: --Nonsustained VT; on monitor Patient asymptomatic, in the setting of dilated cardiomyopathy Patient would benefit by ICD placement, cardiology consulted --Acute on chronic systolic congestive heart failure; EF 10-15%[2016] Dilated cardiomyopathy, continue anti-failure medications, input output monitoring echocardiogram for EF, follow cardiology recommendations --Acute metabolic encephalopathy; mild improvement Multifactorial , due to underlying PNA/sepsis, Treat the underlying cause --Sepsis; due to PNA , dyspnea antibiotics follow cultures --Pneumonia antibiotics, cultures, cough medicine as needed --Acute hypoxic Respiratory failure; Secondary to underlying pneumonia as well as acute exacerbation of congestive heart failure Continue current management, oxygen, BiPAP as needed -- Hypertension; moderate control Continue current antihypertensives and when necessary medications --Acute on CKD stage III ; due to ATN, creatinine trending down Creatinine 1.7 today ,avoid nephrotoxins, nephrology evaluation if needed --DVT prophylaxis; Lovenox and SCDs --DC planning ;per case management Possible SNF Placement requested as per family, History Interval history: Patient seen and examined medical records reviewed Patient is sleeping easily awakens, minimal communication No new events reported Vital signs reviewed Hospitalist Physical - Constitutional Vitals: Temp Pulse Resp BP Pulse Ox 97.9 F 71 20 131/90 100 04/23/18 08:05 04/23/18 08:05 04/23/18 08:05 04/23/18 08:05 04/23/18 08:05 General appearance: Present: no acute distress, well-nourished - EENT Eyes: Present: PERRL, EOM intact - Neck Neck: Present: supple, normal ROM - Respiratory Respiratory effort: normal Respiratory: bilateral: diminished, negative: rales, rhonchi, wheezing - Cardiovascular Rhythm: regular Heart Sounds: Present: S1 & S2 - Extremities Extremities: no ischemia, No edema - Abdominal General gastrointestinal: soft, non-tender, non-distended, normal bowel sounds - Integumentary Integumentary: Present: clear, warm - Psychiatric Psychiatric: other (minimal communication, confused at times) - Neurologic Neurologic: moves all extremities, other (minimal communication) Results - Labs CBC & Chem 7: 04/19/18 14:05 04/22/18 05:08 Labs: Laboratory Last Values WBC 9.2 K/mm3 (4.5-11.0) 04/19/18 14:05 RBC 4.74 M/mm3 (3.65-5.03) 04/19/18 14:05 Hgb 13.9 gm/dl (11.8-15.2) 04/19/18 14:05 Hct 43.3 % (35.5-45.6) 04/19/18 14:05 MCV 91 fl (84-94) 04/19/18 14:05 MCH 29 pg (28-32) 04/19/18 14:05 MCHC 32 % (32-34) 04/19/18 14:05 RDW 15.3 % (13.2-15.2) H 04/19/18 14:05 Plt Count 116 K/mm3 (140-440) L 04/19/18 14:05 [place] % (Auto) Agricultural Service Worker 04/19/18 14:05 Add Manual Diff Complete 04/19/18 14:05 Total Counted 100 04/19/18 14:05 Seg Neuts % (Manual) 72.0 % (40.0-70.0) H 04/19/18 14:05 Band Neutrophils % 0 % 04/19/18 14:05 Lymphocytes % (Manual) 12.0 % (13.4-35.0) L 04/19/18 14:05 Reactive Lymphs % (Man) 0 % 04/19/18 14:05 Monocytes % (Manual) 16.0 % (0.0-7.3) H 04/19/18 14:05 Eosinophils % (Manual) 0 % (0.0-4.3) 04/19/18 14:05 Basophils % (Manual) 0 % (0.0-1.8) 04/19/18 14:05 Metamyelocytes % 0 % 04/19/18 14:05 Myelocytes % 0 % 04/19/18 14:05 Promyelocytes % 0 % 04/19/18 14:05 Blast Cells % 0 % 04/19/18 14:05 Nucleated RBC % Not Reportable 04/19/18 14:05 Seg Neutrophils # Man 6.6 K/mm3 (1.8-7.7) 04/19/18 14:05 Band Neutrophils # 0.0 K/mm3 04/19/18 14:05 Lymphocytes # (Manual) 1.1 K/mm3 (1.2-5.4) L 04/19/18 14:05 Abs React Lymphs (Man) 0.0 K/mm3 04/19/18 14:05 Monocytes # (Manual) 1.5 K/mm3 (0.0-0.8) H 04/19/18 14:05 Eosinophils # (Manual) 0.0 K/mm3 (0.0-0.4) 04/19/18 14:05 Basophils # (Manual) 0.0 K/mm3 (0.0-0.1) 04/19/18 14:05 Metamyelocytes # 0.0 K/mm3 04/19/18 14:05 Myelocytes # 0.0 K/mm3 04/19/18 14:05 Promyelocytes # 0.0 K/mm3 04/19/18 14:05 Blast Cells # 0.0 K/mm3 04/19/18 14:05 WBC Morphology Not Reportable 04/19/18 14:05 Hypersegmented Neuts Not Reportable 04/19/18 14:05 Hyposegmented Neuts Not Reportable 04/19/18 14:05 Hypogranular Neuts Not Reportable 04/19/18 14:05 Smudge Cells Not Reportable 04/19/18 14:05 Toxic Granulation Not Reportable 04/19/18 14:05 Toxic Vacuolation Not Reportable 04/19/18 14:05 Dohle Bodies Not Reportable 04/19/18 14:05 Pelger-Huet Anomaly Not Reportable 04/19/18 14:05 Karla Rods Not Reportable 04/19/18 14:05 Platelet Estimate Consistent w auto 04/19/18 14:05 Clumped Platelets Not Reportable 04/19/18 14:05 Plt Clumps, EDTA Not Reportable 04/19/18 14:05 Large Platelets Not Reportable 04/19/18 14:05 Giant Platelets Not Reportable 04/19/18 14:05 Platelet Satelliting Not Reportable 04/19/18 14:05 Plt Morphology Comment Not Reportable 04/19/18 14:05 RBC Morphology Not Reportable 04/19/18 14:05 Dimorphic RBCs Not Reportable 04/19/18 14:05 Polychromasia Not Reportable 04/19/18 14:05 Hypochromasia Not Reportable 04/19/18 14:05 Poikilocytosis Not Reportable 04/19/18 14:05 Anisocytosis 1+ 04/19/18 14:05 Microcytosis Not Reportable 04/19/18 14:05 Macrocytosis Not Reportable 04/19/18 14:05 Spherocytes Not Reportable 04/19/18 14:05 Pappenheimer Bodies Not Reportable 04/19/18 14:05 Sickle Cells Not Reportable 04/19/18 14:05 Target Cells Not Reportable 04/19/18 14:05 Tear Drop Cells Not Reportable 04/19/18 14:05 Ovalocytes 1+ 04/19/18 14:05 Helmet Cells Not Reportable 04/19/18 14:05 Gallagher-[place] Bodies Not Reportable 04/19/18 14:05 [place] Rings Not Reportable 04/19/18 14:05 [place] Cells Not Reportable 04/19/18 14:05 Bite Cells Not Reportable 04/19/18 14:05 Crenated Cell Not Reportable 04/19/18 14:05 Elliptocytes Not Reportable 04/19/18 14:05 Acanthocytes (Spur) Not Reportable 04/19/18 14:05 Rouleaux Not Reportable 04/19/18 14:05 Hemoglobin C Crystals Not Reportable 04/19/18 14:05 Schistocytes Not Reportable 04/19/18 14:05 Malaria parasites Not Reportable 04/19/18 14:05 Ben Bodies Not Reportable 04/19/18 14:05 Hem Pathologist Commnt No 04/19/18 14:05 Sodium 144 mmol/L (137-145) 04/22/18 05:08 Potassium 5.1 mmol/L (3.6-5.0) H 04/22/18 05:08 Chloride 108.4 mmol/L (98-107) H 04/22/18 05:08 Carbon Dioxide 25 mmol/L (22-30) 04/22/18 05:08 Anion Gap 16 mmol/L 04/22/18 05:08 BUN 34 mg/dL (9-20) H 04/22/18 05:08 Creatinine 1.7 mg/dL (0.8-1.5) H 04/22/18 05:08 Estimated GFR 48 ml/min 04/22/18 05:08 BUN/Creatinine Ratio 20 % 04/22/18 05:08 Glucose 136 mg/dL (75-100) H 04/22/18 05:08 POC Glucose 98 (70-105) 04/19/18 14:44 Lactic Acid 1.70 mmol/L (0.7-2.0) 04/19/18 15:13 Calcium 7.9 mg/dL (8.4-10.2) L 04/22/18 05:08 Magnesium 2.20 mg/dL (1.7-2.3) 04/22/18 05:08 Total Bilirubin 1.10 mg/dL (0.1-1.2) 04/19/18 14:05 AST 64 units/L (5-40) H 04/19/18 14:05 ALT 78 units/L (7-56) H 04/19/18 14:05 Alkaline Phosphatase 95 units/L (35-129) 04/19/18 14:05 Total Creatine Kinase 57 units/L (55-170) 04/19/18 14:05 Total Protein 6.4 g/dL (6.3-8.2) 04/19/18 14:05 Albumin 3.4 g/dL (3.9-5) L 04/19/18 14:05 Albumin/Globulin Ratio 1.1 % 04/19/18 14:05 TSH 0.569 mlU/mL (0.270-4.200) 04/21/18 19:39 Urine Color Yellow (Yellow) 04/19/18 20:39 Urine Turbidity Clear (Clear) 04/19/18 20:39 Urine pH 5.0 (5.0-7.0) 04/19/18 20:39 Ur Specific [place] 1.019 (1.003-1.030) 04/19/18 20:39 Urine Protein 100 mg/dl mg/dL (Negative) 04/19/18 20:39 Urine Glucose (UA) Neg mg/dL (Negative) 04/19/18 20:39 Urine Ketones Neg mg/dL (Negative) 04/19/18 20:39 Urine Blood Mod (Negative) 04/19/18 20:39 Urine Nitrite Neg (Negative) 04/19/18 20:39 Urine Bilirubin Neg (Negative) 04/19/18 20:39 Urine Urobilinogen 2.0 mg/dL (<2.0) 04/19/18 20:39 Ur Leukocyte Esterase Neg (Negative) 04/19/18 20:39 Urine WBC (Auto) 2.0 /HPF (0.0-6.0) 04/19/18 20:39 Urine RBC (Auto) 2.0 /HPF (0.0-6.0) 04/19/18 20:39 Urine WBC Clumps 2+ /HPF 04/19/18 20:39 Amorphous Crystals 2+ 04/19/18 20:39
[2018-04-23] MEDS: KEPPRA PO SCH ×2 (09:37→22:25)
[2018-04-23] MEDS: IMDUR PO SCH (09:37)
[2018-04-23] MEDS: ZITHROMAX PO SCH (09:38)
[2018-04-23] MEDS: COREG PO SCH ×2 (09:39→22:25)
[2018-04-23] MEDS: CORDARONE PO SCH ×2 (09:39→22:25)
[2018-04-23] MEDS: DELTASONE PO SCH (09:39)
[2018-04-23] MEDS: LASIX PO SCH (09:39)
[2018-04-23] MEDS: HEPARIN SUB-Q SCH ×2 (09:40→22:26)
--- NOTE | 2018-04-23 12:14 | Progress Note ---
Assessment and Plan Acute on chronic systolic heart failure Nonsustained ventricular tachycardia on amiodarone for suppression Dilated cardiomyopathy, EF 15-20% large fixed inferior defect on prior thallium scan, but was determined a poor candidate for invasive coronary angiography. Acute renal failure His current creatinine is 1.7, down from 2.3 on presentation. Spoke to the patient's son, Galen Jalloh, who agrees and gives verbal authorization to proceed with a limited diagnostic angiography for assessment of coronary disease. IV hydration with normal saline overnight. We will planned for a cardiac catheterization tomorrow morning. Subjective Date of service: 04/23/18 Interval history: Patient is resting in bed comfortably. There are no cardiac complaints. Objective Vital Signs Temp Pulse Pulse Pulse Resp Resp Resp 04/23/18 09:39 71 04/23/18 09:37 71 04/23/18 08:05 97.9 F 71 20 04/23/18 07:31 04/23/18 07:30 65 19 04/23/18 07:29 64 18 04/23/18 01:27 97.1 F L 70 16 04/23/18 01:06 58 L 04/22/18 20:45 70 18 04/22/18 20:38 04/22/18 20:35 68 18 04/22/18 19:22 98.2 F 64 16 04/22/18 15:56 65 19 04/22/18 14:30 97.8 F 69 18 04/22/18 14:00 63 17 BP Pulse Ox 04/23/18 09:39 131/90 04/23/18 09:37 131/90 04/23/18 08:05 131/90 100 04/23/18 07:31 99 04/23/18 07:30 04/23/18 07:29 04/23/18 01:27 134/89 100 04/23/18 01:06 04/22/18 20:45 04/22/18 20:38 99 04/22/18 20:35 04/22/18 19:22 109/61 97 04/22/18 15:56 04/22/18 14:30 117/71 99 04/22/18 14:00 - Physical Examination General: No Apparent Distress HEENT: Positive: PERRL Cardiac: Positive: Reg Rate and Rhythm
[2018-04-23] MEDS: cefTRIAXone 2 GM in NACL 0.9% 20 ML IV SCH (14:18)
[2018-04-23] MEDS ORDERED: NACL 0.9% 1000 ML 1,000 ML IV SCH (15:00)
[2018-04-24] MEDS: BABY ASPIRIN PO SCH ×2 (06:18→12:38)
[2018-04-24 07:18] LABS: Calcium 8.1 mg/dL (8.4-10.2)
[2018-04-24 07:59] LABS: Basophils % (Auto) 0.2 % (0.0-1.8); Eosinophils % (Auto) 0.1 % (0.0-4.3); Hematocrit 37.4 % (35.5-45.6); Hemoglobin 12.3 gm/dl (11.8-15.2); Lymphocytes # (Auto) 1.1 K/mm3 (1.2-5.4); Lymphocytes % (Auto) 11.4 % (13.4-35.0); Mean Corpuscular HGB Conc 33 % (32-34); Mean Corpuscular Hemoglobin 30 pg (28-32); Mean Corpuscular Volume 91 fl (84-94); Monocytes % (Auto) 9.9 % (0.0-7.3); Platelet Count 140 K/mm3 (140-440); Red Blood Count 4.12 M/mm3 (3.65-5.03); Red Cell Distribution Width 15.3 % (13.2-15.2)
--- NOTE | 2018-04-24 08:25 | Progress Note ---
Assessment and Plan Assessment and plan: --Cardiology evaluation noted no appreciated Possible heart cath today --Nonsustained VT; on monitor Patient asymptomatic, in the setting of dilated cardiomyopathy Cardiology evaluated the patient, heartcath today and evaluation for ICD --Acute on chronic systolic congestive heart failure; EF 10-15%[2016] Dilated cardiomyopathy, continue anti-failure medications, input output monitoring echocardiogram for EF 10-15% during this admission, --Acute metabolic encephalopathy; resolved Multifactorial , due to underlying PNA/sepsis, Treat the underlying cause --Sepsis;due to PNA , continue antibiotics follow cultures --Pneumonia; antibiotics, cultures, cough medicine as needed --Acute hypoxic Respiratory failure; improved Secondary to underlying pneumonia as well as acute exacerbation of congestive heart failure Continue anti-failure medications, oxygen, BiPAP as needed -- Hypertension; moderate control Continue current antihypertensives and when necessary medications --Acute on CKD stage III ; due to ATN, creatinine trending down Creatinine 1.7 today ,avoid nephrotoxins, nephrology if needed --DVT prophylaxis; Lovenox and SCDs --DC planning ;per case management Possible SNF Placement requested as per family, History Interval history: Patient seen and examined this morning medical records reviewed The patient feels slightly better no new complaints Scheduled for possible heart cath today Denies chest pain or shortness of breath Vital signs reviewed Hospitalist Physical - Constitutional Vitals: Temp Pulse Resp BP Pulse Ox 97.5 F L 65 18 133/88 100 04/24/18 02:05 04/24/18 02:05 04/24/18 02:05 04/24/18 02:05 04/24/18 02:05 General appearance: Present: no acute distress, well-nourished - EENT Eyes: Present: PERRL, EOM intact - Neck Neck: Present: supple, normal ROM - Respiratory Respiratory effort: normal Respiratory: bilateral: diminished, rales (occasional), negative: rhonchi, wheezing - Cardiovascular Rhythm: regular Heart Sounds: Present: S1 & S2 - Extremities Extremities: no ischemia Extremity abnormal: edema (trace edema) - Abdominal General gastrointestinal: soft, non-tender, non-distended, normal bowel sounds - Integumentary Integumentary: Present: clear, warm - Psychiatric Psychiatric: appropriate mood/affect, cooperative - Neurologic Neurologic: moves all extremities Results - Labs CBC & Chem 7: 04/24/18 07:36 04/24/18 05:57 Labs: Laboratory Last Values WBC 10.0 K/mm3 (4.5-11.0) 04/24/18 07:36 RBC 4.12 M/mm3 (3.65-5.03) 04/24/18 07:36 Hgb 12.3 gm/dl (11.8-15.2) 04/24/18 07:36 Hct 37.4 % (35.5-45.6) 04/24/18 07:36 MCV 91 fl (84-94) 04/24/18 07:36 MCH 30 pg (28-32) 04/24/18 07:36 MCHC 33 % (32-34) 04/24/18 07:36 RDW 15.3 % (13.2-15.2) H 04/24/18 07:36 Plt Count 140 K/mm3 (140-440) 04/24/18 07:36 Lymph % (Auto) 11.4 % (13.4-35.0) L 04/24/18 07:36 [place] % (Auto) 9.9 % (0.0-7.3) H 04/24/18 07:36 Eos % (Auto) 0.1 % (0.0-4.3) 04/24/18 07:36 Baso % (Auto) 0.2 % (0.0-1.8) 04/24/18 07:36 Lymph # 1.1 K/mm3 (1.2-5.4) L 04/24/18 07:36 [place] # 1.0 K/mm3 (0.0-0.8) H 04/24/18 07:36 Eos # 0.0 K/mm3 (0.0-0.4) 04/24/18 07:36 Baso # 0.0 K/mm3 (0.0-0.1) 04/24/18 07:36 Add Manual Diff Complete 04/19/18 14:05 Total Counted 100 04/19/18 14:05 Seg Neutrophils % 78.4 % (40.0-70.0) H 04/24/18 07:36 Seg Neuts % (Manual) 72.0 % (40.0-70.0) H 04/19/18 14:05 Band Neutrophils % 0 % 04/19/18 14:05 Lymphocytes % (Manual) 12.0 % (13.4-35.0) L 04/19/18 14:05 Reactive Lymphs % (Man) 0 % 04/19/18 14:05 Monocytes % (Manual) 16.0 % (0.0-7.3) H 04/19/18 14:05 Eosinophils % (Manual) 0 % (0.0-4.3) 04/19/18 14:05 Basophils % (Manual) 0 % (0.0-1.8) 04/19/18 14:05 Metamyelocytes % 0 % 04/19/18 14:05 Myelocytes % 0 % 04/19/18 14:05 Promyelocytes % 0 % 04/19/18 14:05 Blast Cells % 0 % 04/19/18 14:05 Nucleated RBC % Not Reportable 04/19/18 14:05 Seg Neutrophils # 7.8 K/mm3 (1.8-7.7) H 04/24/18 07:36 Seg Neutrophils # Man 6.6 K/mm3 (1.8-7.7) 04/19/18 14:05 Band Neutrophils # 0.0 K/mm3 04/19/18 14:05 Lymphocytes # (Manual) 1.1 K/mm3 (1.2-5.4) L 04/19/18 14:05 Abs React Lymphs (Man) 0.0 K/mm3 04/19/18 14:05 Monocytes # (Manual) 1.5 K/mm3 (0.0-0.8) H 04/19/18 14:05 Eosinophils # (Manual) 0.0 K/mm3 (0.0-0.4) 04/19/18 14:05 Basophils # (Manual) 0.0 K/mm3 (0.0-0.1) 04/19/18 14:05 Metamyelocytes # 0.0 K/mm3 04/19/18 14:05 Myelocytes # 0.0 K/mm3 04/19/18 14:05 Promyelocytes # 0.0 K/mm3 04/19/18 14:05 Blast Cells # 0.0 K/mm3 04/19/18 14:05 WBC Morphology Not Reportable 04/19/18 14:05 Hypersegmented Neuts Not Reportable 04/19/18 14:05 Hyposegmented Neuts Not Reportable 04/19/18 14:05 Hypogranular Neuts Not Reportable 04/19/18 14:05 Smudge Cells Not Reportable 04/19/18 14:05 Toxic Granulation Not Reportable 04/19/18 14:05 Toxic Vacuolation Not Reportable 04/19/18 14:05 Dohle Bodies Not Reportable 04/19/18 14:05 Pelger-Huet Anomaly Not Reportable 04/19/18 14:05 Karla Rods Not Reportable 04/19/18 14:05 Platelet Estimate Consistent w auto 04/19/18 14:05 Clumped Platelets Not Reportable 04/19/18 14:05 Plt Clumps, EDTA Not Reportable 04/19/18 14:05 Large Platelets Not Reportable 04/19/18 14:05 Giant Platelets Not Reportable 04/19/18 14:05 Platelet Satelliting Not Reportable 04/19/18 14:05 Plt Morphology Comment Not Reportable 04/19/18 14:05 RBC Morphology Not Reportable 04/19/18 14:05 Dimorphic RBCs Not Reportable 04/19/18 14:05 Polychromasia Not Reportable 04/19/18 14:05 Hypochromasia Not Reportable 04/19/18 14:05 Poikilocytosis Not Reportable 04/19/18 14:05 Anisocytosis 1+ 04/19/18 14:05 Microcytosis Not Reportable 04/19/18 14:05 Macrocytosis Not Reportable 04/19/18 14:05 Spherocytes Not Reportable 04/19/18 14:05 Pappenheimer Bodies Not Reportable 04/19/18 14:05 Sickle Cells Not Reportable 04/19/18 14:05 Target Cells Not Reportable 04/19/18 14:05 Tear Drop Cells Not Reportable 04/19/18 14:05 Ovalocytes 1+ 04/19/18 14:05 Helmet Cells Not Reportable 04/19/18 14:05 Gallagher-[place] Bodies Not Reportable 04/19/18 14:05 [place] Rings Not Reportable 04/19/18 14:05 [place] Cells Not Reportable 04/19/18 14:05 Bite Cells Not Reportable 04/19/18 14:05 Crenated Cell Not Reportable 04/19/18 14:05 Elliptocytes Not Reportable 04/19/18 14:05 Acanthocytes (Spur) Not Reportable 04/19/18 14:05 Rouleaux Not Reportable 04/19/18 14:05 Hemoglobin C Crystals Not Reportable 04/19/18 14:05 Schistocytes Not Reportable 04/19/18 14:05 Malaria parasites Not Reportable 04/19/18 14:05 Ben Bodies Not Reportable 04/19/18 14:05 Hem Pathologist Commnt No 04/19/18 14:05 PT 13.7 Sec. (12.2-14.9) 04/24/18 05:57 INR 1.00 (0.87-1.13) 04/24/18 05:57 Sodium 138 mmol/L (137-145) 04/24/18 05:57 Potassium 4.9 mmol/L (3.6-5.0) 04/24/18 05:57 Chloride 102.7 mmol/L (98-107) 04/24/18 05:57 Carbon Dioxide 24 mmol/L (22-30) 04/24/18 05:57 Anion Gap 16 mmol/L 04/24/18 05:57 BUN 31 mg/dL (9-20) H 04/24/18 05:57 Creatinine 1.6 mg/dL (0.8-1.5) H 04/24/18 05:57 Estimated GFR 51 ml/min 04/24/18 05:57 BUN/Creatinine Ratio 19 % 04/24/18 05:57 Glucose 125 mg/dL (75-100) H 04/24/18 05:57 POC Glucose 109 (70-105) H 04/24/18 06:45 Lactic Acid 1.70 mmol/L (0.7-2.0) 04/19/18 15:13 Calcium 8.1 mg/dL (8.4-10.2) L 04/24/18 05:57 Magnesium 2.20 mg/dL (1.7-2.3) 04/22/18 05:08 Total Bilirubin 1.10 mg/dL (0.1-1.2) 04/19/18 14:05 AST 64 units/L (5-40) H 04/19/18 14:05 ALT 78 units/L (7-56) H 04/19/18 14:05 Alkaline Phosphatase 95 units/L (35-129) 04/19/18 14:05 Total Creatine Kinase 57 units/L (55-170) 04/19/18 14:05 Total Protein 6.4 g/dL (6.3-8.2) 04/19/18 14:05 Albumin 3.4 g/dL (3.9-5) L 04/19/18 14:05 Albumin/Globulin Ratio 1.1 % 04/19/18 14:05 TSH 0.569 mlU/mL (0.270-4.200) 04/21/18 19:39 Urine Color Yellow (Yellow) 04/19/18 20:39 Urine Turbidity Clear (Clear) 04/19/18 20:39 Urine pH 5.0 (5.0-7.0) 04/19/18 20:39 Ur Specific [place] 1.019 (1.003-1.030) 04/19/18 20:39 Urine Protein 100 mg/dl mg/dL (Negative) 04/19/18 20:39 Urine Glucose (UA) Neg mg/dL (Negative) 04/19/18 20:39 Urine Ketones Neg mg/dL (Negative) 04/19/18 20:39 Urine Blood Mod (Negative) 04/19/18 20:39 Urine Nitrite Neg (Negative) 04/19/18 20:39 Urine Bilirubin Neg (Negative) 04/19/18 20:39 Urine Urobilinogen 2.0 mg/dL (<2.0) 04/19/18 20:39 Ur Leukocyte Esterase Neg (Negative) 04/19/18 20:39 Urine WBC (Auto) 2.0 /HPF (0.0-6.0) 04/19/18 20:39 Urine RBC (Auto) 2.0 /HPF (0.0-6.0) 04/19/18 20:39 Urine WBC Clumps 2+ /HPF 04/19/18 20:39 Amorphous Crystals 2+ 04/19/18 20:39
[2018-04-24] MEDS ORDERED: HEPARIN/NS 5000 UNIT/500ML(CATH LAB) 1,000 ML IR ONE (09:11)
[2018-04-24] MEDS ORDERED: NITROGLYCERIN SYRINGE 3 ML ONE (09:12)
[2018-04-24] MEDS ORDERED: XYLOCAINE 2% INFILTRATI ONE (09:12)
[2018-04-24] MEDS ORDERED: SUBLIMAZE ONE (09:13)
[2018-04-24] MEDS ORDERED: NACL 0.9% 250ML 250 ML ONE (09:13)
[2018-04-24] MEDS ORDERED: VERSED ONE (09:13)
[2018-04-24] MEDS: DUONEB *Not for PRN Use IH SCH ×3 (09:49→20:26)
[2018-04-24] MEDS: HEPARIN 10,000 UNITS/10 ML ONE ×2 (10:14→10:48)
[2018-04-24] MEDS ORDERED: PLAVIX ONE (10:43)
[2018-04-24] MEDS ORDERED: ALUM-MAG HYDROX-SIMETH 200-200-20MG/5ML ONE (10:43)
--- NOTE | 2018-04-24 11:14 | Cardiac Catherization Report ---
CARDIAC CATHETERIZATION AND CORONARY ANGIOPLASTY PROCEDURES PERFORMED: 1. Left heart catheterization. 2. Selective left and right coronary angiography. 3. Coronary angioplasty and stenting of the mid left anterior descending artery. 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 He also has chronic kidney disease with a baseline creatinine of 1.6-2.0. A previous thallium stress test demonstrated a fixed inferior defect and the patient has been on medical management. He was readmitted at this time with recurrent heart failure. While on telemetry, he was also found with multiple, nonsustained runs of ventricular tachycardia. We recommended cardiac catheterization and coronary angiography for further assessment of his coronary disease. In recognition of his chronic kidney disease and elevated risk of contrast nephropathy, additional consents were obtained from the patient and his consenting adult children. They were fully aware of the elevated risk of contrast nephropathy and consented to proceed with diagnostic angiography. We administered low dose normal saline overnight and plan limited contrast exposure with Visipaque. PROCEDURE: The patient was prepped and draped in a sterile fashion after informed consent. The right femoral artery was entered using Seldinger technique followed by placement of a 6-[place] sheath. Selective left and right coronary angiography was performed using #4 right and left Corey catheters. The angiograms were reviewed. CORONARY ANGIOGRAPHY: The left main coronary artery contained mild irregularities. The proximal to mid left anterior descending artery was extremely tortuous and heavily calcified. There was an up to 50% luminal stenosis of the proximal LAD. Following this, there was a focal, napkin ring, 85-90% stenosis of the mid LAD. This lesion was seen in multiple angiographic views. Following that, mild irregularities were noted of the rest of the large LAD system. The circumflex artery and its obtuse marginal branches contained diffuse mild atherosclerosis. The right coronary right is a relatively small caliber, but dominant vessel. This vessel was completely occluded in its proximal segment. This was a long segment of chronic total occlusion. There was faint collateralization of the distal right coronary segments from the left coronary system. CORONARY ANGIOPLASTY: After review of the angiograms, ad hoc coronary intervention to the mid LAD was recommended. We exchanged for an XB 3.5 guiding catheter and advanced to the left coronary ostium. A 0.014 inch Pet Trainer 50 guidewire was then advanced into the LAD. Following wire placement, initial attempts at deployment of a 3.6 x 9 mm Resolute stent was unsuccessful due to the severe tortuosity and calcification within the proximal LAD. We then inserted an extra support Choice PT guidewire as a abhinav wire. Following placement of the abhinav wire, with some difficulty, we were able to transition the 3.5 mm stent across the lesional segment. The stent was then deployed to optimal pressures. Following stenting, the wires and the catheters were removed, post-intervention angiograms revealed an excellent angiographic result, 0 residual stenosis and ALBERT 3 flow was maintained down the vessel. The patient tolerated the procedure well and there were no complications. The total contrast used for both diagnostic and interventional procedure was 60 mL of Visipaque. CONCLUSION: 1. Two-vessel coronary artery disease, with chronic total occlusion of the right coronary artery and an 85-90% napkin ring stenosis of the mid LAD. 2. Successful ad hoc angioplasty and stenting of the mid left anterior descending, with deployment of a 3.5 x 9 mm Resolute drug-eluting stent. 3. Total contrast was 60 mL of Visipaque. JOB# [id number] RACHEL/NTS
--- NOTE | 2018-04-24 11:37 | Event Note ---
Date: 04/24/18 Cardiac cath and PCI, total contrast 60cc of visipaque. Findings: 1. 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 85-90% mid LAD stenosis-successfully treated with a 3.5X9 DE stent. Medical therapy-hydralazine for afterload, carvedilol, statin, asa and plavix. Check Cr in am. Lifevest on discharge, followed by outpatient ICD evaluation.
[2018-04-24] MEDS ORDERED: NACL 0.9% 1000 ML 1,000 ML IV SCH (12:00)
[2018-04-24] MEDS: CORDARONE PO SCH (12:38)
[2018-04-24] MEDS: DELTASONE PO SCH (12:39)
[2018-04-24] MEDS: ZITHROMAX PO SCH (12:39)
[2018-04-24] MEDS: COREG PO SCH (12:39)
[2018-04-24] MEDS: LASIX PO SCH (12:40)
[2018-04-24] MEDS: KEPPRA PO SCH (12:40)
[2018-04-24] MEDS: IMDUR PO SCH (12:40)
[2018-04-24] MEDS: HEPARIN SUB-Q SCH (12:40)
[2018-04-24] MEDS: APRESOLINE PO SCH (14:00)
[2018-04-24] MEDS: cefTRIAXone 2 GM in NACL 0.9% 20 ML IV SCH (18:49)
[2018-04-25] MEDS: HEPARIN SUB-Q SCH ×3 (00:40→22:50)
[2018-04-25] MEDS: CORDARONE PO SCH ×3 (00:41→22:50)
[2018-04-25] MEDS: APRESOLINE PO SCH ×4 (00:41→22:50)
[2018-04-25] MEDS: COREG PO SCH ×3 (00:42→22:50)
[2018-04-25] MEDS: KEPPRA PO SCH ×3 (00:42→22:50)
[2018-04-25] MEDS: DUONEB *Not for PRN Use IH SCH ×4 (02:02→19:48)
[2018-04-25 06:40] LABS: Basophils % (Auto) 0.4 % (0.0-1.8); Eosinophils # (Auto) 0.1 K/mm3 (0.0-0.4); Hemoglobin 12.8 gm/dl (11.8-15.2); Lymphocytes # (Auto) 1.3 K/mm3 (1.2-5.4); Lymphocytes % (Auto) 17.4 % (13.4-35.0); Mean Corpuscular HGB Conc 34 % (32-34); Mean Corpuscular Hemoglobin 30 pg (28-32); Mean Corpuscular Volume 89 fl (84-94); Monocytes # (Auto) 0.9 K/mm3 (0.0-0.8); Monocytes % (Auto) 11.6 % (0.0-7.3); Platelet Count 159 K/mm3 (140-440); Red Blood Count 4.26 M/mm3 (3.65-5.03); Red Cell Distribution Width 14.8 % (13.2-15.2)
[2018-04-25 07:02] LABS: Creatine Kinase MB 3.3 ng/mL (0.0-4.0)
[2018-04-25 07:05] LABS: Calcium 8.3 mg/dL (8.4-10.2)
[2018-04-25 07:47] LABS: Chol/HDL Ratio 4.03 %
--- NOTE | 2018-04-25 08:25 | XRay Report ---
PORTABLE CHEST INDICATION: Post PCI. COMPARISON: 04/19/2018 CXR. FINDINGS: Portable, frontal chest radiograph again demonstrates limited inspiration with stable, mild exaggerated cardiomediastinal silhouette/possible cardiomegaly. Right mid to lower lung opacities again consistent with calcified pleural plaques anteriorly and slight scarring as on 09/12/[address] No significant pleural effusions or CHF suspected radiographically. EKG leads. Intact bones. CONCLUSION: No significant acute chest process, as described. Thank you for the opportunity to participate in this patient's care.
[2018-04-25] MEDS: ZITHROMAX PO SCH (11:18)
[2018-04-25] MEDS: DELTASONE PO SCH (11:19)
[2018-04-25] MEDS: IMDUR PO SCH (11:19)
[2018-04-25] MEDS: BABY ASPIRIN PO SCH (11:20)
[2018-04-25] MEDS: PLAVIX PO SCH (11:20)
[2018-04-25] MEDS: LASIX PO SCH (11:20)
--- NOTE | 2018-04-25 11:30 | Progress Note ---
Assessment and Plan Assessment and plan: --Cardiology evaluation noted no appreciated Had cath s/p PCI, continue current cardiac medications --Nonsustained VT; on monitor Patient asymptomatic, in the setting of dilated cardiomyopathy Cardiology following, LifeVest prior to discharge and outpatient evaluation for ICD --Acute on chronic systolic congestive heart failure; EF 10-15%[2016] Dilated cardiomyopathy, continue anti-failure medications, input output monitoring echocardiogram for EF 10-15% during this admission, --Acute metabolic encephalopathy; resolved Multifactorial , due to underlying PNA/sepsis, Treat the underlying cause --Sepsis;due to PNA , continue antibiotics follow cultures --Pneumonia; antibiotics, cultures, cough medicine as needed --Acute hypoxic Respiratory failure; improved Secondary to underlying pneumonia as well as acute exacerbation of congestive heart failure Continue anti-failure medications, oxygen, BiPAP as needed -- Hypertension; moderate control Continue current antihypertensives and when necessary medications --Acute on CKD stage III ; due to ATN, creatinine trending down Creatinine 1.7 today ,avoid nephrotoxins, nephrology if needed --DVT prophylaxis; Lovenox and SCDs --DC planning ;per case management Possible SNF Placement requested as per family, LifeVest at discharge History Interval history: Seen and examined medical records reviewed Patient feels better no new complaints Status post PCI yesterday, denies chest pain or shortness of breath Vital signs reviewed Awaiting LifeVest placement, at discharge An outpatient evaluation for ICD Alert awake not in acute distress Hospitalist Physical - Constitutional Vitals: Temp Pulse Resp BP Pulse Ox 97.6 F 106 H 18 124/80 96 04/25/18 07:34 04/25/18 10:14 04/25/18 10:14 04/25/18 07:34 04/25/18 10:15 General appearance: Present: no acute distress, well-nourished - EENT Eyes: Present: PERRL, EOM intact - Neck Neck: Present: supple, normal ROM - Respiratory Respiratory effort: normal Respiratory: bilateral: diminished, rales, negative: rhonchi, wheezing - Cardiovascular Rhythm: regular Heart Sounds: Present: S1 & S2 - Extremities Extremities: no ischemia, No edema Peripheral Pulses: within normal limits - Abdominal General gastrointestinal: soft, non-tender, non-distended, normal bowel sounds - Integumentary Integumentary: Present: clear, warm - Psychiatric Psychiatric: appropriate mood/affect, cooperative - Neurologic Neurologic: CNII-XII intact, moves all extremities Results - Labs CBC & Chem 7: 04/25/18 06:17 04/25/18 06:17 Labs: Laboratory Last Values WBC 7.6 K/mm3 (4.5-11.0) 04/25/18 06:17 RBC 4.26 M/mm3 (3.65-5.03) 04/25/18 06:17 Hgb 12.8 gm/dl (11.8-15.2) 04/25/18 06:17 Hct 38.0 % (35.5-45.6) 04/25/18 06:17 MCV 89 fl (84-94) 04/25/18 06:17 MCH 30 pg (28-32) 04/25/18 06:17 MCHC 34 % (32-34) 04/25/18 06:17 RDW 14.8 % (13.2-15.2) 04/25/18 06:17 Plt Count 159 K/mm3 (140-440) 04/25/18 06:17 Lymph % (Auto) 17.4 % (13.4-35.0) 04/25/18 06:17 [place] % (Auto) 11.6 % (0.0-7.3) H 04/25/18 06:17 Eos % (Auto) 1.0 % (0.0-4.3) 04/25/18 06:17 Baso % (Auto) 0.4 % (0.0-1.8) 04/25/18 06:17 Lymph # 1.3 K/mm3 (1.2-5.4) 04/25/18 06:17 [place] # 0.9 K/mm3 (0.0-0.8) H 04/25/18 06:17 Eos # 0.1 K/mm3 (0.0-0.4) 04/25/18 06:17 Baso # 0.0 K/mm3 (0.0-0.1) 04/25/18 06:17 Add Manual Diff Complete 04/19/18 14:05 Total Counted 100 04/19/18 14:05 Seg Neutrophils % 69.6 % (40.0-70.0) 04/25/18 06:17 Seg Neuts % (Manual) 72.0 % (40.0-70.0) H 04/19/18 14:05 Band Neutrophils % 0 % 04/19/18 14:05 Lymphocytes % (Manual) 12.0 % (13.4-35.0) L 04/19/18 14:05 Reactive Lymphs % (Man) 0 % 04/19/18 14:05 Monocytes % (Manual) 16.0 % (0.0-7.3) H 04/19/18 14:05 Eosinophils % (Manual) 0 % (0.0-4.3) 04/19/18 14:05 Basophils % (Manual) 0 % (0.0-1.8) 04/19/18 14:05 Metamyelocytes % 0 % 04/19/18 14:05 Myelocytes % 0 % 04/19/18 14:05 Promyelocytes % 0 % 04/19/18 14:05 Blast Cells % 0 % 04/19/18 14:05 Nucleated RBC % Not Reportable 04/19/18 14:05 Seg Neutrophils # 5.3 K/mm3 (1.8-7.7) 04/25/18 06:17 Seg Neutrophils # Man 6.6 K/mm3 (1.8-7.7) 04/19/18 14:05 Band Neutrophils # 0.0 K/mm3 04/19/18 14:05 Lymphocytes # (Manual) 1.1 K/mm3 (1.2-5.4) L 04/19/18 14:05 Abs React Lymphs (Man) 0.0 K/mm3 04/19/18 14:05 Monocytes # (Manual) 1.5 K/mm3 (0.0-0.8) H 04/19/18 14:05 Eosinophils # (Manual) 0.0 K/mm3 (0.0-0.4) 04/19/18 14:05 Basophils # (Manual) 0.0 K/mm3 (0.0-0.1) 04/19/18 14:05 Metamyelocytes # 0.0 K/mm3 04/19/18 14:05 Myelocytes # 0.0 K/mm3 04/19/18 14:05 Promyelocytes # 0.0 K/mm3 04/19/18 14:05 Blast Cells # 0.0 K/mm3 04/19/18 14:05 WBC Morphology Not Reportable 04/19/18 14:05 Hypersegmented Neuts Not Reportable 04/19/18 14:05 Hyposegmented Neuts Not Reportable 04/19/18 14:05 Hypogranular Neuts Not Reportable 04/19/18 14:05 Smudge Cells Not Reportable 04/19/18 14:05 Toxic Granulation Not Reportable 04/19/18 14:05 Toxic Vacuolation Not Reportable 04/19/18 14:05 Dohle Bodies Not Reportable 04/19/18 14:05 Pelger-Huet Anomaly Not Reportable 04/19/18 14:05 Karla Rods Not Reportable 04/19/18 14:05 Platelet Estimate Consistent w auto 04/19/18 14:05 Clumped Platelets Not Reportable 04/19/18 14:05 Plt Clumps, EDTA Not Reportable 04/19/18 14:05 Large Platelets Not Reportable 04/19/18 14:05 Giant Platelets Not Reportable 04/19/18 14:05 Platelet Satelliting Not Reportable 04/19/18 14:05 Plt Morphology Comment Not Reportable 04/19/18 14:05 RBC Morphology Not Reportable 04/19/18 14:05 Dimorphic RBCs Not Reportable 04/19/18 14:05 Polychromasia Not Reportable 04/19/18 14:05 Hypochromasia Not Reportable 04/19/18 14:05 Poikilocytosis Not Reportable 04/19/18 14:05 Anisocytosis 1+ 04/19/18 14:05 Microcytosis Not Reportable 04/19/18 14:05 Macrocytosis Not Reportable 04/19/18 14:05 Spherocytes Not Reportable 04/19/18 14:05 Pappenheimer Bodies Not Reportable 04/19/18 14:05 Sickle Cells Not Reportable 04/19/18 14:05 Target Cells Not Reportable 04/19/18 14:05 Tear Drop Cells Not Reportable 04/19/18 14:05 Ovalocytes 1+ 04/19/18 14:05 Helmet Cells Not Reportable 04/19/18 14:05 [place] Bodies Not Reportable 04/19/18 14:05 [place] Rings Not Reportable 04/19/18 14:05 [place]a Cells Not Reportable 04/19/18 14:05 Bite Cells Not Reportable 04/19/18 14:05 Crenated Cell Not Reportable 04/19/18 14:05 Elliptocytes Not Reportable 04/19/18 14:05 Acanthocytes (Spur) Not Reportable 04/19/18 14:05 Rouleaux Not Reportable 04/19/18 14:05 Hemoglobin C Crystals Not Reportable 04/19/18 14:05 Schistocytes Not Reportable 04/19/18 14:05 Malaria parasites Not Reportable 04/19/18 14:05 Ben Bodies Not Reportable 04/19/18 14:05 Hem Pathologist Commnt No 04/19/18 14:05 PT 13.7 Sec. (12.2-14.9) 04/24/18 05:57 INR 1.00 (0.87-1.13) 04/24/18 05:57 Activated Clotting Time 164 (74-137) H 04/24/18 15:26 Sodium 140 mmol/L (137-145) 04/25/18 06:17 Potassium 5.0 mmol/L (3.6-5.0) 04/25/18 06:17 Chloride 105.4 mmol/L (98-107) 04/25/18 06:17 Carbon Dioxide 22 mmol/L (22-30) 04/25/18 06:17 Anion Gap 18 mmol/L 04/25/18 06:17 BUN 31 mg/dL (9-20) H 04/25/18 06:17 Creatinine 1.6 mg/dL (0.8-1.5) H 04/25/18 06:17 Estimated GFR 51 ml/min 04/25/18 06:17 BUN/Creatinine Ratio 19 % 04/25/18 06:17 Glucose 70 mg/dL (75-100) L 04/25/18 06:17 POC Glucose 109 (70-105) H 04/24/18 06:45 Lactic Acid 1.70 mmol/L (0.7-2.0) 04/19/18 15:13 Calcium 8.3 mg/dL (8.4-10.2) L 04/25/18 06:17 Magnesium 2.20 mg/dL (1.7-2.3) 04/22/18 05:08 Total Bilirubin 1.10 mg/dL (0.1-1.2) 04/19/18 14:05 AST 64 units/L (5-40) H 04/19/18 14:05 ALT 78 units/L (7-56) H 04/19/18 14:05 Alkaline Phosphatase 95 units/L (35-129) 04/19/18 14:05 Total Creatine Kinase 41 units/L (55-170) L 04/25/18 06:17 CK-MB (CK-2) 3.3 ng/mL (0.0-4.0) 04/25/18 06:17 CK-MB (CK-2) Rel Index 8.0 (0-4) H 04/25/18 06:17 Troponin T 0.181 ng/mL (0.00-0.029) H* 04/25/18 06:17 Total Protein 6.4 g/dL (6.3-8.2) 04/19/18 14:05 Albumin 3.4 g/dL (3.9-5) L 04/19/18 14:05 Albumin/Globulin Ratio 1.1 % 04/19/18 14:05 Triglycerides 101 mg/dL (2-149) 04/25/18 06:17 Cholesterol 129 mg/dL (50-199) 04/25/18 06:17 LDL Cholesterol Direct 74 mg/dL (50-130) 04/25/18 06:17 HDL Cholesterol 32 mg/dL (40-59) L 04/25/18 06:17 Cholesterol/HDL Ratio 4.03 % 04/25/18 06:17 TSH 0.569 mlU/mL (0.270-4.200) 04/21/18 19:39 Urine Color Yellow (Yellow) 04/19/18 20:39 Urine Turbidity Clear (Clear) 04/19/18 20:39 Urine pH 5.0 (5.0-7.0) 04/19/18 20:39 Ur Specific [place] 1.019 (1.003-1.030) 04/19/18 20:39 Urine Protein 100 mg/dl mg/dL (Negative) 04/19/18 20:39 Urine Glucose (UA) Neg mg/dL (Negative) 04/19/18 20:39 Urine Ketones Neg mg/dL (Negative) 04/19/18 20:39 Urine Blood Mod (Negative) 04/19/18 20:39 Urine Nitrite Neg (Negative) 04/19/18 20:39 Urine Bilirubin Neg (Negative) 04/19/18 20:39 Urine Urobilinogen 2.0 mg/dL (<2.0) 04/19/18 20:39 Ur Leukocyte Esterase Neg (Negative) 04/19/18 20:39 Urine WBC (Auto) 2.0 /HPF (0.0-6.0) 04/19/18 20:39 Urine RBC (Auto) 2.0 /HPF (0.0-6.0) 04/19/18 20:39 Urine WBC Clumps 2+ /HPF 04/19/18 20:39 Amorphous Crystals 2+ 04/19/18 20:39
--- NOTE | 2018-04-25 12:17 | Progress Note ---
Assessment and Plan Acute on chronic systolic heart failure Nonsustained ventricular tachycardia on amiodarone for suppression Dilated cardiomyopathy, EF 15-20% Coronary artery disease [facility] this admission: 1. CREATIVE COORDINATOR of RCA-medical therapy 2. 85-90% mid LAD stenosis-successfully treated with a 3.5X9 DE stent. Acute renal failure Recommendations: Continue medical therapy for coronary artery disease and dilated cardiomyopathy. Lifevest placement before discharge, followed by outpatient ICD evaluation. Subjective Date of service: 04/25/18 Interval history: Patient has no cardiac complaints. Pressure dressing in place to right groin. Stable creatinine of 1.6 today. Objective Vital Signs Temp Pulse Pulse Resp Resp BP Pulse Ox 04/25/18 10:15 96 04/25/18 10:14 106 H 18 04/25/18 09:21 77 04/25/18 08:00 108 H 19 04/25/18 07:34 97.6 F 76 24 124/80 92 04/25/18 05:15 98.6 F 74 18 117/80 95 04/25/18 02:15 86 18 04/25/18 02:00 84 18 04/25/18 01:06 79 04/25/18 00:28 82 94 04/25/18 00:09 46 L 144/75 94 04/25/18 00:08 46 L 97 04/25/18 00:00 132/67 04/24/18 23:30 125/61 04/24/18 23:01 129/67 04/24/18 22:31 134/73 04/24/18 22:01 57 L 128/71 95 04/24/18 21:31 58 L 129/73 93 04/24/18 21:30 72 89 04/24/18 21:03 81 136/87 91 04/24/18 21:01 81 138/84 93 04/24/18 20:42 63 18 04/24/18 20:30 82 132/89 97 04/24/18 20:27 61 18 95 04/24/18 20:00 67 136/86 94 04/24/18 19:30 80 132/79 95 04/24/18 19:00 69 134/81 84 04/24/18 18:30 78 126/81 94 04/24/18 18:14 84 129/88 95 04/24/18 17:05 83 14 137/84 100 04/24/18 16:54 85 16 136/88 100 04/24/18 16:45 81 14 141/88 100 04/24/18 16:28 88 17 153/98 100 04/24/18 16:22 80 16 148/98 100 04/24/18 16:16 86 15 134/89 100 04/24/18 16:00 79 19 140/95 100 04/24/18 15:30 71 20 137/90 100 04/24/18 15:00 71 20 139/92 100 04/24/18 14:30 71 16 134/92 100 04/24/18 14:00 69 18 139/80 100 04/24/18 13:30 72 16 139/91 100 04/24/18 13:00 73 18 133/92 10 L 04/24/18 12:30 71 18 139/89 100 - Physical Examination General: No Apparent Distress HEENT: Positive: PERRL Neck: Positive: neck supple Cardiac: Positive: Reg Rate and Rhythm Lungs: Positive: Decreased Breath Sounds Neuro: Positive: Grossly Intact Extremities: Absent: edema - Labs and Meds Cardiac Enzymes 04/25/18 Range/Units 06:17 CK-MB (CK-2) 3.3 (0.0-4.0) ng/mL Lipids 04/25/18 Range/Units 06:17 Triglycerides 101 (2-149) mg/dL Cholesterol 129 (50-199) mg/dL HDL Cholesterol 32 L (40-59) mg/dL Cholesterol/HDL Ratio 4.03 % CBC 04/25/18 Range/Units 06:17 WBC 7.6 (4.5-11.0) K/mm3 RBC 4.26 (3.65-5.03) M/mm3 Hgb 12.8 (11.8-15.2) gm/dl Hct 38.0 (35.5-45.6) % Plt Count 159 (140-440) K/mm3 Lymph # 1.3 (1.2-5.4) K/mm3 [place] # 0.9 H (0.0-0.8) K/mm3 Eos # 0.1 (0.0-0.4) K/mm3 Baso # 0.0 (0.0-0.1) K/mm3 Comprehensive Metabolic Panel 04/25/18 Range/Units 06:17 Sodium 140 (137-145) mmol/L Potassium 5.0 (3.6-5.0) mmol/L Chloride 105.4 (98-107) mmol/L Carbon Dioxide 22 (22-30) mmol/L BUN 31 H (9-20) mg/dL Creatinine 1.6 H (0.8-1.5) mg/dL Glucose 70 L (75-100) mg/dL Calcium 8.3 L (8.4-10.2) mg/dL
[2018-04-25] MEDS: cefTRIAXone 2 GM in NACL 0.9% 20 ML IV SCH (14:46)
[2018-04-26] MEDS: DUONEB *Not for PRN Use IH SCH ×4 (02:37→21:10)
[2018-04-26] MEDS: APRESOLINE PO SCH ×3 (06:00→22:55)
[2018-04-26 07:28] LABS: Calcium 8.2 mg/dL (8.4-10.2)
[2018-04-26] MEDS: DELTASONE PO SCH (09:35)
[2018-04-26] MEDS: KEPPRA PO SCH ×2 (09:35→22:55)
[2018-04-26] MEDS: BABY ASPIRIN PO SCH (09:35)
[2018-04-26] MEDS: HEPARIN SUB-Q SCH ×2 (09:35→22:55)
[2018-04-26] MEDS: COREG PO SCH ×2 (09:35→22:55)
[2018-04-26] MEDS: IMDUR PO SCH (09:36)
[2018-04-26] MEDS: ZITHROMAX PO SCH (09:36)
[2018-04-26] MEDS: LASIX PO SCH (09:36)
[2018-04-26] MEDS: PLAVIX PO SCH (09:36)
[2018-04-26] MEDS: CORDARONE PO SCH ×2 (09:39→22:55)
--- NOTE | 2018-04-26 10:29 | Progress Note ---
Assessment and Plan - Patient Problems (1) Coronary artery disease Current Visit: Yes Status: Acute Plan to address problem: Status post cardiac catheterization and successful coronary intervention to the mid LAD, with placement of a 3.5 mm drug-eluting stent. (2) Acute on chronic systolic heart failure Current Visit: Yes Status: Acute Plan to address problem: Medical therapy for heart failure to include afterload agents, beta blockers and oral antiplatelet therapy and diuretics. (3) Nonsustained ventricular tachycardia Current Visit: Yes Status: Acute Plan to address problem: Awaiting fitting of the LifeVest for outpatient arrhythmia monitoring. Subjective Date of service: 04/26/18 Interval history: The patient looks and feels better, no chest pain and no shortness of breath. His creatinine is stable at his baseline of 1.6-1.7, following the cardiac catheterization and coronary intervention. No post-cath complications. Objective Vital Signs Temp Pulse Pulse Resp Resp BP BP 04/26/18 09:36 69 138/67 04/26/18 09:35 69 138/67 04/26/18 08:57 72 21 04/26/18 08:56 04/26/18 08:00 66 18 04/26/18 06:00 69 138/67 04/26/18 05:00 69 22 138/87 04/26/18 02:52 65 18 04/26/18 02:37 63 18 04/25/18 22:50 65 127/83 04/25/18 22:00 55 L 04/25/18 20:06 65 22 127/83 04/25/18 20:03 77 18 04/25/18 20:00 97.4 F L 62 22 127/83 04/25/18 19:49 04/25/18 19:48 75 18 04/25/18 16:48 97.2 F L 62 22 110/72 04/25/18 13:45 102 H 18 Pulse Ox 04/26/18 09:36 04/26/18 09:35 04/26/18 08:57 04/26/18 08:56 100 04/26/18 08:00 04/26/18 06:00 04/26/18 05:00 100 04/26/18 02:52 04/26/18 02:37 04/25/18 22:50 04/25/18 22:00 04/25/18 20:06 95 04/25/18 20:03 04/25/18 20:00 93 04/25/18 19:49 100 04/25/18 19:48 04/25/18 16:48 100 04/25/18 13:45 - Physical Examination General: No Apparent Distress HEENT: Positive: PERRL Neck: Positive: neck supple Cardiac: Positive: Reg Rate and Rhythm Lungs: Positive: Decreased Breath Sounds Neuro: Positive: Grossly Intact Abdomen: Positive: Soft Skin: Positive: Clear Extremities: Absent: edema - Labs and Meds Comprehensive Metabolic Panel 04/26/18 Range/Units 06:51 Sodium 138 (137-145) mmol/L Potassium 5.5 H (3.6-5.0) mmol/L Chloride 104.9 (98-107) mmol/L Carbon Dioxide 23 (22-30) mmol/L BUN 30 H (9-20) mg/dL Creatinine 1.7 H (0.8-1.5) mg/dL Glucose 117 H (75-100) mg/dL Calcium 8.2 L (8.4-10.2) mg/dL
--- NOTE | 2018-04-26 11:35 | Progress Note ---
Assessment and Plan Assessment and plan: --Cardiology evaluation noted and appreciated Had cath s/p PCI, 04/24/2018, continue current cardiac medications --Nonsustained VT; on monitor Patient asymptomatic, in the setting of dilated cardiomyopathy Cardiology following, LifeVest prior to discharge and outpatient evaluation for ICD --Acute on chronic systolic congestive heart failure; EF 10-15%[2016] Dilated cardiomyopathy, continue anti-failure medications, input output monitoring echocardiogram for EF 10-15% during this admission, --Acute metabolic encephalopathy; resolved Multifactorial , due to underlying PNA/sepsis, Treat the underlying cause --Sepsis;due to PNA , continue antibiotics follow cultures --Pneumonia; antibiotics, cultures, cough medicine as needed --Acute hypoxic Respiratory failure; improved Secondary to underlying pneumonia as well as acute exacerbation of congestive heart failure Continue anti-failure medications, oxygen, BiPAP as needed -- Hypertension; moderate control Continue current antihypertensives and when necessary medications --Acute on CKD stage III ; due to ATN, creatinine trending down Creatinine 1.7 today ,avoid nephrotoxins, nephrology if needed --DVT prophylaxis; Lovenox and SCDs --DC planning ;per case management Possible SNF Placement requested as per family, aWaiting LifeVest . History Interval history: Patient seen and examined, medical records reviewed no new complaints, Awaiting the LifeVest Vital signs reviewed Hospitalist Physical - Constitutional Vitals: Temp Pulse Resp BP Pulse Ox 97.4 F L 69 21 138/67 100 04/25/18 20:00 04/26/18 10:00 04/26/18 08:57 04/26/18 09:36 04/26/18 08:56 General appearance: Present: no acute distress, well-nourished - EENT Eyes: Present: PERRL, EOM intact - Neck Neck: Present: supple, normal ROM - Respiratory Respiratory effort: normal Respiratory: bilateral: diminished, negative: rales, rhonchi, wheezing - Cardiovascular Rhythm: regular Heart Sounds: Present: S1 & S2 - Extremities Extremities: no ischemia, No edema - Abdominal General gastrointestinal: soft, non-tender, non-distended, normal bowel sounds - Integumentary Integumentary: Present: clear, warm - Psychiatric Psychiatric: appropriate mood/affect, cooperative - Neurologic Neurologic: CNII-XII intact, moves all extremities Results - Labs CBC & Chem 7: 04/25/18 06:17 04/27/18 13:40 Labs: Laboratory Last Values WBC 7.6 K/mm3 (4.5-11.0) 04/25/18 06:17 RBC 4.26 M/mm3 (3.65-5.03) 04/25/18 06:17 Hgb 12.8 gm/dl (11.8-15.2) 04/25/18 06:17 Hct 38.0 % (35.5-45.6) 04/25/18 06:17 MCV 89 fl (84-94) 04/25/18 06:17 MCH 30 pg (28-32) 04/25/18 06:17 MCHC 34 % (32-34) 04/25/18 06:17 RDW 14.8 % (13.2-15.2) 04/25/18 06:17 Plt Count 159 K/mm3 (140-440) 04/25/18 06:17 Lymph % (Auto) 17.4 % (13.4-35.0) 04/25/18 06:17 [place] % (Auto) 11.6 % (0.0-7.3) H 04/25/18 06:17 Eos % (Auto) 1.0 % (0.0-4.3) 04/25/18 06:17 Baso % (Auto) 0.4 % (0.0-1.8) 04/25/18 06:17 Lymph # 1.3 K/mm3 (1.2-5.4) 04/25/18 06:17 [place] # 0.9 K/mm3 (0.0-0.8) H 04/25/18 06:17 Eos # 0.1 K/mm3 (0.0-0.4) 04/25/18 06:17 Baso # 0.0 K/mm3 (0.0-0.1) 04/25/18 06:17 Add Manual Diff Complete 04/19/18 14:05 Total Counted 100 04/19/18 14:05 Seg Neutrophils % 69.6 % (40.0-70.0) 04/25/18 06:17 Seg Neuts % (Manual) 72.0 % (40.0-70.0) H 04/19/18 14:05 Band Neutrophils % 0 % 04/19/18 14:05 Lymphocytes % (Manual) 12.0 % (13.4-35.0) L 04/19/18 14:05 Reactive Lymphs % (Man) 0 % 04/19/18 14:05 Monocytes % (Manual) 16.0 % (0.0-7.3) H 04/19/18 14:05 Eosinophils % (Manual) 0 % (0.0-4.3) 04/19/18 14:05 Basophils % (Manual) 0 % (0.0-1.8) 04/19/18 14:05 Metamyelocytes % 0 % 04/19/18 14:05 Myelocytes % 0 % 04/19/18 14:05 Promyelocytes % 0 % 04/19/18 14:05 Blast Cells % 0 % 04/19/18 14:05 Nucleated RBC % Not Reportable 04/19/18 14:05 Seg Neutrophils # 5.3 K/mm3 (1.8-7.7) 04/25/18 06:17 Seg Neutrophils # Man 6.6 K/mm3 (1.8-7.7) 04/19/18 14:05 Band Neutrophils # 0.0 K/mm3 04/19/18 14:05 Lymphocytes # (Manual) 1.1 K/mm3 (1.2-5.4) L 04/19/18 14:05 Abs React Lymphs (Man) 0.0 K/mm3 04/19/18 14:05 Monocytes # (Manual) 1.5 K/mm3 (0.0-0.8) H 04/19/18 14:05 Eosinophils # (Manual) 0.0 K/mm3 (0.0-0.4) 04/19/18 14:05 Basophils # (Manual) 0.0 K/mm3 (0.0-0.1) 04/19/18 14:05 Metamyelocytes # 0.0 K/mm3 04/19/18 14:05 Myelocytes # 0.0 K/mm3 04/19/18 14:05 Promyelocytes # 0.0 K/mm3 04/19/18 14:05 Blast Cells # 0.0 K/mm3 04/19/18 14:05 WBC Morphology Not Reportable 04/19/18 14:05 Hypersegmented Neuts Not Reportable 04/19/18 14:05 Hyposegmented Neuts Not Reportable 04/19/18 14:05 Hypogranular Neuts Not Reportable 04/19/18 14:05 Smudge Cells Not Reportable 04/19/18 14:05 Toxic Granulation Not Reportable 04/19/18 14:05 Toxic Vacuolation Not Reportable 04/19/18 14:05 Dohle Bodies Not Reportable 04/19/18 14:05 Pelger-Huet Anomaly Not Reportable 04/19/18 14:05 Karla Rods Not Reportable 04/19/18 14:05 Platelet Estimate Consistent w auto 04/19/18 14:05 Clumped Platelets Not Reportable 04/19/18 14:05 Plt Clumps, EDTA Not Reportable 04/19/18 14:05 Large Platelets Not Reportable 04/19/18 14:05 Giant Platelets Not Reportable 04/19/18 14:05 Platelet Satelliting Not Reportable 04/19/18 14:05 Plt Morphology Comment Not Reportable 04/19/18 14:05 RBC Morphology Not Reportable 04/19/18 14:05 Dimorphic RBCs Not Reportable 04/19/18 14:05 Polychromasia Not Reportable 04/19/18 14:05 Hypochromasia Not Reportable 04/19/18 14:05 Poikilocytosis Not Reportable 04/19/18 14:05 Anisocytosis 1+ 04/19/18 14:05 Microcytosis Not Reportable 04/19/18 14:05 Macrocytosis Not Reportable 04/19/18 14:05 Spherocytes Not Reportable 04/19/18 14:05 Pappenheimer Bodies Not Reportable 04/19/18 14:05 Sickle Cells Not Reportable 04/19/18 14:05 Target Cells Not Reportable 04/19/18 14:05 Tear Drop Cells Not Reportable 04/19/18 14:05 Ovalocytes 1+ 04/19/18 14:05 Helmet Cells Not Reportable 04/19/18 14:05 Gallagher-[place] Bodies Not Reportable 04/19/18 14:05 [place] Rings Not Reportable 04/19/18 14:05 [place] Cells Not Reportable 04/19/18 14:05 Bite Cells Not Reportable 04/19/18 14:05 Crenated Cell Not Reportable 04/19/18 14:05 Elliptocytes Not Reportable 04/19/18 14:05 Acanthocytes (Spur) Not Reportable 04/19/18 14:05 Rouleaux Not Reportable 04/19/18 14:05 Hemoglobin C Crystals Not Reportable 04/19/18 14:05 Schistocytes Not Reportable 04/19/18 14:05 Malaria parasites Not Reportable 04/19/18 14:05 Ben Bodies Not Reportable 04/19/18 14:05 Hem Pathologist Commnt No 04/19/18 14:05 PT 13.7 Sec. (12.2-14.9) 04/24/18 05:57 INR 1.00 (0.87-1.13) 04/24/18 05:57 Activated Clotting Time 164 (74-137) H 04/24/18 15:26 Sodium 138 mmol/L (137-145) 04/26/18 06:51 Potassium 5.5 mmol/L (3.6-5.0) H 04/26/18 06:51 Chloride 104.9 mmol/L (98-107) 04/26/18 06:51 Carbon Dioxide 23 mmol/L (22-30) 04/26/18 06:51 Anion Gap 16 mmol/L 04/26/18 06:51 BUN 30 mg/dL (9-20) H 04/26/18 06:51 Creatinine 1.7 mg/dL (0.8-1.5) H 04/26/18 06:51 Estimated GFR 48 ml/min 04/26/18 06:51 BUN/Creatinine Ratio 18 % 04/26/18 06:51 Glucose 117 mg/dL (75-100) H 04/26/18 06:51 POC Glucose 109 (70-105) H 04/24/18 06:45 Lactic Acid 1.70 mmol/L (0.7-2.0) 04/19/18 15:13 Calcium 8.2 mg/dL (8.4-10.2) L 04/26/18 06:51 Magnesium 2.20 mg/dL (1.7-2.3) 04/22/18 05:08 Total Bilirubin 1.10 mg/dL (0.1-1.2) 04/19/18 14:05 AST 64 units/L (5-40) H 04/19/18 14:05 ALT 78 units/L (7-56) H 04/19/18 14:05 Alkaline Phosphatase 95 units/L (35-129) 04/19/18 14:05 Total Creatine Kinase 41 units/L (55-170) L 04/25/18 06:17 CK-MB (CK-2) 3.3 ng/mL (0.0-4.0) 04/25/18 06:17 CK-MB (CK-2) Rel Index 8.0 (0-4) H 04/25/18 06:17 Troponin T 0.181 ng/mL (0.00-0.029) H* 04/25/18 06:17 Total Protein 6.4 g/dL (6.3-8.2) 04/19/18 14:05 Albumin 3.4 g/dL (3.9-5) L 04/19/18 14:05 Albumin/Globulin Ratio 1.1 % 04/19/18 14:05 Triglycerides 101 mg/dL (2-149) 04/25/18 06:17 Cholesterol 129 mg/dL (50-199) 04/25/18 06:17 LDL Cholesterol Direct 74 mg/dL (50-130) 04/25/18 06:17 HDL Cholesterol 32 mg/dL (40-59) L 04/25/18 06:17 Cholesterol/HDL Ratio 4.03 % 04/25/18 06:17 TSH 0.569 mlU/mL (0.270-4.200) 04/21/18 19:39 Urine Color Yellow (Yellow) 04/19/18 20:39 Urine Turbidity Clear (Clear) 04/19/18 20:39 Urine pH 5.0 (5.0-7.0) 04/19/18 20:39 Ur Specific [place] 1.019 (1.003-1.030) 04/19/18 20:39 Urine Protein 100 mg/dl mg/dL (Negative) 04/19/18 20:39 Urine Glucose (UA) Neg mg/dL (Negative) 04/19/18 20:39 Urine Ketones Neg mg/dL (Negative) 04/19/18 20:39 Urine Blood Mod (Negative) 04/19/18 20:39 Urine Nitrite Neg (Negative) 04/19/18 20:39 Urine Bilirubin Neg (Negative) 04/19/18 20:39 Urine Urobilinogen 2.0 mg/dL (<2.0) 04/19/18 20:39 Ur Leukocyte Esterase Neg (Negative) 04/19/18 20:39 Urine WBC (Auto) 2.0 /HPF (0.0-6.0) 04/19/18 20:39 Urine RBC (Auto) 2.0 /HPF (0.0-6.0) 04/19/18 20:39 Urine WBC Clumps 2+ /HPF 04/19/18 20:39 Amorphous Crystals 2+ 04/19/18 20:39
[2018-04-26] MEDS ORDERED: KIONEX PO ONE ×2 (12:00→18:00)
[2018-04-26] MEDS: cefTRIAXone 2 GM in NACL 0.9% 20 ML IV SCH (18:05)
[2018-04-26] MEDS ORDERED: PROVENTIL IH PRN (21:48)
[2018-04-27] MEDS: APRESOLINE PO SCH ×3 (07:11→22:25)
[2018-04-27] MEDS: DUONEB *Not for PRN Use IH SCH ×3 (09:46→20:34)
[2018-04-27] MEDS: DELTASONE PO SCH (09:53)
[2018-04-27] MEDS: PLAVIX PO SCH (09:53)
[2018-04-27] MEDS: LASIX PO SCH (09:53)
[2018-04-27] MEDS: BABY ASPIRIN PO SCH (09:53)
[2018-04-27] MEDS: IMDUR PO SCH (09:53)
[2018-04-27] MEDS: ZITHROMAX PO SCH (09:54)
[2018-04-27] MEDS: KEPPRA PO SCH ×2 (09:54→22:24)
[2018-04-27] MEDS: COREG PO SCH ×2 (09:54→22:24)
[2018-04-27] MEDS: HEPARIN SUB-Q SCH ×2 (09:54→22:26)
[2018-04-27] MEDS: CORDARONE PO SCH ×2 (09:54→22:23)
--- NOTE | 2018-04-27 10:23 | Discharge Summary ---
Providers - Providers Date of Admission: 04/20/18 02:24 Date of discharge: 04/27/18 Attending physician: OMAR ALATORRE 04/19/18 20:56 Consult to Case Management [CONS] Routine Services Needed at Discharge: Other Notified:: y Was contact made?: Yes Additional Physician Instructions: Please send out for SNF placement as per family request. 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 04/24/18 Consult to Cardiac Rehabilitation [CONS] Routine Reason For Exam: post pci Primary care physician: [facility] [employer] [facility] Hospitalization Condition: Fair Disposition: DC-30 STILL A PATIENT Exam - Constitutional Vitals: Temp Pulse Resp BP Pulse Ox 97.7 F 74 19 145/94 100 04/27/18 03:22 04/27/18 10:02 04/27/18 10:02 04/27/18 07:11 04/27/18 09:48 Plan Follow up with: PRIMARY CAREMD [Primary Care Provider] - 3-5 Days
[2018-04-27] MEDS ORDERED: KIONEX PO NR (10:24)
--- NOTE | 2018-04-27 12:59 | Progress Note ---
Assessment and Plan Acute on chronic systolic heart failure Nonsustained ventricular tachycardia on amiodarone for suppression lifevest placed Dilated cardiomyopathy, EF 15-20% Coronary artery disease [facility] this admission: 1. DRYWALL SANDER of RCA-medical therapy 2. 85-90% mid LAD stenosis-successfully treated with a 3.5X9 DE stent. Acute renal failure Recommendations: Continue medical therapy for coronary artery disease, dilated cardiomyopathy and paroxysmal NSVT. Once discharged, patient will f/u with [facility] as scheduled. Subjective Date of service: 04/27/18 Interval history: Lifevest placed. Patient has no cardiac complaints. Objective Vital Signs Temp Pulse Pulse Resp Resp BP Pulse Ox 04/27/18 10:02 74 19 04/27/18 10:00 65 04/27/18 09:48 100 04/27/18 08:15 97.3 F L 65 18 135/90 100 04/27/18 08:00 72 18 04/27/18 07:11 64 145/94 04/27/18 03:22 97.7 F 73 20 134/87 100 04/26/18 23:49 97.8 F 72 20 145/94 100 04/26/18 22:55 66 121/74 04/26/18 22:00 60 04/26/18 21:25 66 20 04/26/18 21:12 70 20 97 04/26/18 20:28 97.8 F 67 20 130/91 97 04/26/18 16:45 97.3 F L 66 18 121/74 100 04/26/18 15:29 82 18 04/26/18 15:15 88 19 - Physical Examination General: No Apparent Distress HEENT: Positive: PERRL Cardiac: Positive: Reg Rate and Rhythm Lungs: Positive: Decreased Breath Sounds Neuro: Positive: Grossly Intact Extremities: Absent: edema
[2018-04-27] MEDS: cefTRIAXone 2 GM in NACL 0.9% 20 ML IV SCH (14:50)
[2018-04-27 15:12] LABS: Calcium 8.7 mg/dL (8.4-10.2)
--- NOTE | 2018-04-27 16:26 | Progress Note ---
Assessment and Plan Assessment and plan: --CAD s/p cath s/p PCI, 04/24/2018, continue current cardiac medications --Nonsustained VT; on monitor Patient asymptomatic, in the setting of dilated cardiomyopathy Cardiology recommend LifeVest[Pt. received today] and outpatient evaluation for ICD --Acute on chronic systolic congestive heart failure; EF 10-15%[2016] Dilated cardiomyopathy, continue anti-failure medications, input output monitoring echocardiogram for EF 10-15% during this admission, --Acute metabolic encephalopathy; resolved Multifactorial , due to underlying PNA/sepsis, Treat the underlying cause --Sepsis;due to PNA , continue antibiotics follow cultures --Pneumonia; antibiotics, cultures, cough medicine as needed --Acute hypoxic Respiratory failure; improved Secondary to underlying pneumonia as well as acute exacerbation of congestive heart failure Continue anti-failure medications, oxygen, BiPAP as needed -- Hypertension; moderate control Continue current antihypertensives and when necessary medications --Acute on CKD stage III ; due to ATN, creatinine trending down Creatinine 1.7 today ,avoid nephrotoxins, nephrology if needed --DVT prophylaxis; Lovenox and SCDs --DC planning ;per case management Possible SNF Placement awaiting insurance authorization Patient received Life Vest. Patient is medically stable for discharge History Interval history: Patient seen and examined and records reviewed Patient feels better no new complaints Patient received LifeVest Awaiting SNF placement Alert awake oriented 3, not in acute distress Vital signs reviewed Hospitalist Physical - Constitutional Vitals: Temp Pulse Resp BP Pulse Ox 97.1 F L 70 19 116/76 98 04/27/18 12:30 04/27/18 14:47 04/27/18 14:47 04/27/18 12:30 04/27/18 12:30 General appearance: Present: no acute distress, well-nourished - EENT Eyes: Present: PERRL, EOM intact - Neck Neck: Present: supple, normal ROM - Respiratory Respiratory effort: normal Respiratory: bilateral: diminished, negative: rales, rhonchi, wheezing - Cardiovascular Rhythm: regular Heart Sounds: Present: S1 & S2 - Extremities Extremities: no ischemia, No edema Extremity abnormal: edema - Abdominal General gastrointestinal: soft, non-tender, non-distended, normal bowel sounds - Integumentary Integumentary: Present: clear, warm - Psychiatric Psychiatric: appropriate mood/affect, cooperative - Neurologic Neurologic: moves all extremities Results - Labs CBC & Chem 7: 04/25/18 06:17 04/27/18 13:40 Labs: Laboratory Last Values WBC 7.6 K/mm3 (4.5-11.0) 04/25/18 06:17 RBC 4.26 M/mm3 (3.65-5.03) 04/25/18 06:17 Hgb 12.8 gm/dl (11.8-15.2) 04/25/18 06:17 Hct 38.0 % (35.5-45.6) 04/25/18 06:17 MCV 89 fl (84-94) 04/25/18 06:17 MCH 30 pg (28-32) 04/25/18 06:17 MCHC 34 % (32-34) 04/25/18 06:17 RDW 14.8 % (13.2-15.2) 04/25/18 06:17 Plt Count 159 K/mm3 (140-440) 04/25/18 06:17 Lymph % (Auto) 17.4 % (13.4-35.0) 04/25/18 06:17 [place] % (Auto) 11.6 % (0.0-7.3) H 04/25/18 06:17 Eos % (Auto) 1.0 % (0.0-4.3) 04/25/18 06:17 Baso % (Auto) 0.4 % (0.0-1.8) 04/25/18 06:17 Lymph # 1.3 K/mm3 (1.2-5.4) 04/25/18 06:17 [place] # 0.9 K/mm3 (0.0-0.8) H 04/25/18 06:17 Eos # 0.1 K/mm3 (0.0-0.4) 04/25/18 06:17 Baso # 0.0 K/mm3 (0.0-0.1) 04/25/18 06:17 Add Manual Diff Complete 04/19/18 14:05 Total Counted 100 04/19/18 14:05 Seg Neutrophils % 69.6 % (40.0-70.0) 04/25/18 06:17 Seg Neuts % (Manual) 72.0 % (40.0-70.0) H 04/19/18 14:05 Band Neutrophils % 0 % 04/19/18 14:05 Lymphocytes % (Manual) 12.0 % (13.4-35.0) L 04/19/18 14:05 Reactive Lymphs % (Man) 0 % 04/19/18 14:05 Monocytes % (Manual) 16.0 % (0.0-7.3) H 04/19/18 14:05 Eosinophils % (Manual) 0 % (0.0-4.3) 04/19/18 14:05 Basophils % (Manual) 0 % (0.0-1.8) 04/19/18 14:05 Metamyelocytes % 0 % 04/19/18 14:05 Myelocytes % 0 % 04/19/18 14:05 Promyelocytes % 0 % 04/19/18 14:05 Blast Cells % 0 % 04/19/18 14:05 Nucleated RBC % Not Reportable 04/19/18 14:05 Seg Neutrophils # 5.3 K/mm3 (1.8-7.7) 04/25/18 06:17 Seg Neutrophils # Man 6.6 K/mm3 (1.8-7.7) 04/19/18 14:05 Band Neutrophils # 0.0 K/mm3 04/19/18 14:05 Lymphocytes # (Manual) 1.1 K/mm3 (1.2-5.4) L 04/19/18 14:05 Abs React Lymphs (Man) 0.0 K/mm3 04/19/18 14:05 Monocytes # (Manual) 1.5 K/mm3 (0.0-0.8) H 04/19/18 14:05 Eosinophils # (Manual) 0.0 K/mm3 (0.0-0.4) 04/19/18 14:05 Basophils # (Manual) 0.0 K/mm3 (0.0-0.1) 04/19/18 14:05 Metamyelocytes # 0.0 K/mm3 04/19/18 14:05 Myelocytes # 0.0 K/mm3 04/19/18 14:05 Promyelocytes # 0.0 K/mm3 04/19/18 14:05 Blast Cells # 0.0 K/mm3 04/19/18 14:05 WBC Morphology Not Reportable 04/19/18 14:05 Hypersegmented Neuts Not Reportable 04/19/18 14:05 Hyposegmented Neuts Not Reportable 04/19/18 14:05 Hypogranular Neuts Not Reportable 04/19/18 14:05 Smudge Cells Not Reportable 04/19/18 14:05 Toxic Granulation Not Reportable 04/19/18 14:05 Toxic Vacuolation Not Reportable 04/19/18 14:05 Dohle Bodies Not Reportable 04/19/18 14:05 Pelger-Huet Anomaly Not Reportable 04/19/18 14:05 Karla Rods Not Reportable 04/19/18 14:05 Platelet Estimate Consistent w auto 04/19/18 14:05 Clumped Platelets Not Reportable 04/19/18 14:05 Plt Clumps, EDTA Not Reportable 04/19/18 14:05 Large Platelets Not Reportable 04/19/18 14:05 Giant Platelets Not Reportable 04/19/18 14:05 Platelet Satelliting Not Reportable 04/19/18 14:05 Plt Morphology Comment Not Reportable 04/19/18 14:05 RBC Morphology Not Reportable 04/19/18 14:05 Dimorphic RBCs Not Reportable 04/19/18 14:05 Polychromasia Not Reportable 04/19/18 14:05 Hypochromasia Not Reportable 04/19/18 14:05 Poikilocytosis Not Reportable 04/19/18 14:05 Anisocytosis 1+ 04/19/18 14:05 Microcytosis Not Reportable 04/19/18 14:05 Macrocytosis Not Reportable 04/19/18 14:05 Spherocytes Not Reportable 04/19/18 14:05 Pappenheimer Bodies Not Reportable 04/19/18 14:05 Sickle Cells Not Reportable 04/19/18 14:05 Target Cells Not Reportable 04/19/18 14:05 Tear Drop Cells Not Reportable 04/19/18 14:05 Ovalocytes 1+ 04/19/18 14:05 Helmet Cells Not Reportable 04/19/18 14:05 [place] Bodies Not Reportable 04/19/18 14:05 [place] Rings Not Reportable 04/19/18 14:05 [place] Cells Not Reportable 04/19/18 14:05 Bite Cells Not Reportable 04/19/18 14:05 Crenated Cell Not Reportable 04/19/18 14:05 Elliptocytes Not Reportable 04/19/18 14:05 Acanthocytes (Spur) Not Reportable 04/19/18 14:05 Rouleaux Not Reportable 04/19/18 14:05 Hemoglobin C Crystals Not Reportable 04/19/18 14:05 Schistocytes Not Reportable 04/19/18 14:05 Malaria parasites Not Reportable 04/19/18 14:05 Ben Bodies Not Reportable 04/19/18 14:05 Hem Pathologist Commnt No 04/19/18 14:05 PT 13.7 Sec. (12.2-14.9) 04/24/18 05:57 INR 1.00 (0.87-1.13) 04/24/18 05:57 Activated Clotting Time 164 (74-137) H 04/24/18 15:26 Sodium 138 mmol/L (137-145) 04/27/18 13:40 Potassium 4.6 mmol/L (3.6-5.0) 04/27/18 13:40 Chloride 98.8 mmol/L (98-107) 04/27/18 13:40 Carbon Dioxide 22 mmol/L (22-30) 04/27/18 13:40 Anion Gap 22 mmol/L 04/27/18 13:40 BUN 30 mg/dL (9-20) H 04/27/18 13:40 Creatinine 1.8 mg/dL (0.8-1.5) H 04/27/18 13:40 Estimated GFR 44 ml/min 04/27/18 13:40 BUN/Creatinine Ratio 17 % 04/27/18 13:40 Glucose 109 mg/dL (75-100) H 04/27/18 13:40 POC Glucose 109 (70-105) H 04/24/18 06:45 Lactic Acid 1.70 mmol/L (0.7-2.0) 04/19/18 15:13 Calcium 8.7 mg/dL (8.4-10.2) 04/27/18 13:40 Magnesium 2.20 mg/dL (1.7-2.3) 04/22/18 05:08 Total Bilirubin 1.10 mg/dL (0.1-1.2) 04/19/18 14:05 AST 64 units/L (5-40) H 04/19/18 14:05 ALT 78 units/L (7-56) H 04/19/18 14:05 Alkaline Phosphatase 95 units/L (35-129) 04/19/18 14:05 Total Creatine Kinase 41 units/L (55-170) L 04/25/18 06:17 CK-MB (CK-2) 3.3 ng/mL (0.0-4.0) 04/25/18 06:17 CK-MB (CK-2) Rel Index 8.0 (0-4) H 04/25/18 06:17 Troponin T 0.181 ng/mL (0.00-0.029) H* 04/25/18 06:17 Total Protein 6.4 g/dL (6.3-8.2) 04/19/18 14:05 Albumin 3.4 g/dL (3.9-5) L 04/19/18 14:05 Albumin/Globulin Ratio 1.1 % 04/19/18 14:05 Triglycerides 101 mg/dL (2-149) 04/25/18 06:17 Cholesterol 129 mg/dL (50-199) 04/25/18 06:17 LDL Cholesterol Direct 74 mg/dL (50-130) 04/25/18 06:17 HDL Cholesterol 32 mg/dL (40-59) L 04/25/18 06:17 Cholesterol/HDL Ratio 4.03 % 04/25/18 06:17 TSH 0.569 mlU/mL (0.270-4.200) 04/21/18 19:39 Urine Color Yellow (Yellow) 04/19/18 20:39 Urine Turbidity Clear (Clear) 04/19/18 20:39 Urine pH 5.0 (5.0-7.0) 04/19/18 20:39 Ur Specific [place] 1.019 (1.003-1.030) 04/19/18 20:39 Urine Protein 100 mg/dl mg/dL (Negative) 04/19/18 20:39 Urine Glucose (UA) Neg mg/dL (Negative) 04/19/18 20:39 Urine Ketones Neg mg/dL (Negative) 04/19/18 20:39 Urine Blood Mod (Negative) 04/19/18 20:39 Urine Nitrite Neg (Negative) 04/19/18 20:39 Urine Bilirubin Neg (Negative) 04/19/18 20:39 Urine Urobilinogen 2.0 mg/dL (<2.0) 04/19/18 20:39 Ur Leukocyte Esterase Neg (Negative) 04/19/18 20:39 Urine WBC (Auto) 2.0 /HPF (0.0-6.0) 04/19/18 20:39 Urine RBC (Auto) 2.0 /HPF (0.0-6.0) 04/19/18 20:39 Urine WBC Clumps 2+ /HPF 04/19/18 20:39 Amorphous Crystals 2+ 04/19/18 20:39
[2018-04-28] MEDS: APRESOLINE PO SCH ×3 (06:06→21:34)
[2018-04-28] MEDS: DUONEB *Not for PRN Use IH SCH ×3 (07:51→21:02)
--- NOTE | 2018-04-28 09:19 | Progress Note ---
Assessment and Plan Assessment and plan: --CAD s/p cath s/p PCI, 04/24/2018, continue current cardiac medications --Nonsustained VT; on monitor Cardiology recommend patient has LifeVest on ,outpatient evaluation for ICD --Acute on chronic systolic congestive heart failure; EF 10-15%[2016] Dilated cardiomyopathy, continue anti-failure medications, input output monitoring echocardiogram for EF 10-15% during this admission, --Acute metabolic encephalopathy; resolved Multifactorial , due to underlying PNA/sepsis, Treat the underlying cause --Sepsis;due to PNA , received 10 days of Rocephin , DC today 2 more days of Zithromax ,cultures negative to date --Pneumonia; antibiotics, cultures, cough medicine as needed --Acute hypoxic Respiratory failure; improved Due to pneumonia as well as acute exacerbation of congestive heart failure Continue anti-failure medications, oxygen, BiPAP as needed -- Hypertension; moderate control Continue current antihypertensives and when necessary medications --Acute on CKD stage III ; due to ATN, creatinine trending down Creatinine 1.7 today ,avoid nephrotoxins, nephrology if needed --DVT prophylaxis; Lovenox and SCDs --DC planning ;per case management Patient has LifeVest on SNF accepted the patient, awaiting insurance approval Patient is medically stable for discharge History Interval history: Patient seen and examined medical records reviewed No new events reported Patient is medically stable for discharge Awaiting insurance approval for SNF placement Patient is raising a life vest Vital signs reviewed Hospitalist Physical - Constitutional Vitals: Temp Pulse Resp BP Pulse Ox 97.1 F L 71 18 144/71 98 04/28/18 04:22 04/28/18 06:06 04/28/18 04:22 04/28/18 06:06 04/28/18 04:22 General appearance: Present: no acute distress, well-nourished - EENT Eyes: Present: PERRL, EOM intact - Neck Neck: Present: supple, normal ROM - Respiratory Respiratory effort: normal Respiratory: bilateral: diminished, negative: rales, rhonchi, wheezing - Cardiovascular Rhythm: regular Heart Sounds: Present: S1 & S2 - Extremities Extremities: no ischemia, No edema - Abdominal General gastrointestinal: soft, non-tender, non-distended - Integumentary Integumentary: Present: clear, warm - Psychiatric Psychiatric: appropriate mood/affect, cooperative - Neurologic Neurologic: CNII-XII intact, moves all extremities Results - Labs CBC & Chem 7: 04/25/18 06:17 04/27/18 13:40 Labs: Laboratory Last Values WBC 7.6 K/mm3 (4.5-11.0) 04/25/18 06:17 RBC 4.26 M/mm3 (3.65-5.03) 04/25/18 06:17 Hgb 12.8 gm/dl (11.8-15.2) 04/25/18 06:17 Hct 38.0 % (35.5-45.6) 04/25/18 06:17 MCV 89 fl (84-94) 04/25/18 06:17 MCH 30 pg (28-32) 04/25/18 06:17 MCHC 34 % (32-34) 04/25/18 06:17 RDW 14.8 % (13.2-15.2) 04/25/18 06:17 Plt Count 159 K/mm3 (140-440) 04/25/18 06:17 Lymph % (Auto) 17.4 % (13.4-35.0) 04/25/18 06:17 [place] % (Auto) 11.6 % (0.0-7.3) H 04/25/18 06:17 Eos % (Auto) 1.0 % (0.0-4.3) 04/25/18 06:17 Baso % (Auto) 0.4 % (0.0-1.8) 04/25/18 06:17 Lymph # 1.3 K/mm3 (1.2-5.4) 04/25/18 06:17 [place] # 0.9 K/mm3 (0.0-0.8) H 04/25/18 06:17 Eos # 0.1 K/mm3 (0.0-0.4) 04/25/18 06:17 Baso # 0.0 K/mm3 (0.0-0.1) 04/25/18 06:17 Add Manual Diff Complete 04/19/18 14:05 Total Counted 100 04/19/18 14:05 Seg Neutrophils % 69.6 % (40.0-70.0) 04/25/18 06:17 Seg Neuts % (Manual) 72.0 % (40.0-70.0) H 04/19/18 14:05 Band Neutrophils % 0 % 04/19/18 14:05 Lymphocytes % (Manual) 12.0 % (13.4-35.0) L 04/19/18 14:05 Reactive Lymphs % (Man) 0 % 04/19/18 14:05 Monocytes % (Manual) 16.0 % (0.0-7.3) H 04/19/18 14:05 Eosinophils % (Manual) 0 % (0.0-4.3) 04/19/18 14:05 Basophils % (Manual) 0 % (0.0-1.8) 04/19/18 14:05 Metamyelocytes % 0 % 04/19/18 14:05 Myelocytes % 0 % 04/19/18 14:05 Promyelocytes % 0 % 04/19/18 14:05 Blast Cells % 0 % 04/19/18 14:05 Nucleated RBC % Not Reportable 04/19/18 14:05 Seg Neutrophils # 5.3 K/mm3 (1.8-7.7) 04/25/18 06:17 Seg Neutrophils # Man 6.6 K/mm3 (1.8-7.7) 04/19/18 14:05 Band Neutrophils # 0.0 K/mm3 04/19/18 14:05 Lymphocytes # (Manual) 1.1 K/mm3 (1.2-5.4) L 04/19/18 14:05 Abs React Lymphs (Man) 0.0 K/mm3 04/19/18 14:05 Monocytes # (Manual) 1.5 K/mm3 (0.0-0.8) H 04/19/18 14:05 Eosinophils # (Manual) 0.0 K/mm3 (0.0-0.4) 04/19/18 14:05 Basophils # (Manual) 0.0 K/mm3 (0.0-0.1) 04/19/18 14:05 Metamyelocytes # 0.0 K/mm3 04/19/18 14:05 Myelocytes # 0.0 K/mm3 04/19/18 14:05 Promyelocytes # 0.0 K/mm3 04/19/18 14:05 Blast Cells # 0.0 K/mm3 04/19/18 14:05 WBC Morphology Not Reportable 04/19/18 14:05 Hypersegmented Neuts Not Reportable 04/19/18 14:05 Hyposegmented Neuts Not Reportable 04/19/18 14:05 Hypogranular Neuts Not Reportable 04/19/18 14:05 Smudge Cells Not Reportable 04/19/18 14:05 Toxic Granulation Not Reportable 04/19/18 14:05 Toxic Vacuolation Not Reportable 04/19/18 14:05 Dohle Bodies Not Reportable 04/19/18 14:05 Pelger-Huet Anomaly Not Reportable 04/19/18 14:05 Karla Rods Not Reportable 04/19/18 14:05 Platelet Estimate Consistent w auto 04/19/18 14:05 Clumped Platelets Not Reportable 04/19/18 14:05 Plt Clumps, EDTA Not Reportable 04/19/18 14:05 Large Platelets Not Reportable 04/19/18 14:05 Giant Platelets Not Reportable 04/19/18 14:05 Platelet Satelliting Not Reportable 04/19/18 14:05 Plt Morphology Comment Not Reportable 04/19/18 14:05 RBC Morphology Not Reportable 04/19/18 14:05 Dimorphic RBCs Not Reportable 04/19/18 14:05 Polychromasia Not Reportable 04/19/18 14:05 Hypochromasia Not Reportable 04/19/18 14:05 Poikilocytosis Not Reportable 04/19/18 14:05 Anisocytosis 1+ 04/19/18 14:05 Microcytosis Not Reportable 04/19/18 14:05 Macrocytosis Not Reportable 04/19/18 14:05 Spherocytes Not Reportable 04/19/18 14:05 Pappenheimer Bodies Not Reportable 04/19/18 14:05 Sickle Cells Not Reportable 04/19/18 14:05 Target Cells Not Reportable 04/19/18 14:05 Tear Drop Cells Not Reportable 04/19/18 14:05 Ovalocytes 1+ 04/19/18 14:05 Helmet Cells Not Reportable 04/19/18 14:05 Gallagher-[place] Bodies Not Reportable 04/19/18 14:05 [place] Rings Not Reportable 04/19/18 14:05 [place]a Cells Not Reportable 04/19/18 14:05 Bite Cells Not Reportable 04/19/18 14:05 Crenated Cell Not Reportable 05/31/18 14:05 Elliptocytes Not Reportable 04/19/18 14:05 Acanthocytes (Spur) Not Reportable 04/19/18 14:05 Rouleaux Not Reportable 04/19/18 14:05 Hemoglobin C Crystals Not Reportable 04/19/18 14:05 Schistocytes Not Reportable 04/19/18 14:05 Malaria parasites Not Reportable 04/19/18 14:05 Ben Bodies Not Reportable 04/19/18 14:05 Hem Pathologist Commnt No 04/19/18 14:05 PT 13.7 Sec. (12.2-14.9) 04/24/18 05:57 INR 1.00 (0.87-1.13) 04/24/18 05:57 Activated Clotting Time 164 (74-137) H 04/24/18 15:26 Sodium 138 mmol/L (137-145) 04/27/18 13:40 Potassium 4.6 mmol/L (3.6-5.0) 04/27/18 13:40 Chloride 98.8 mmol/L (98-107) 04/27/18 13:40 Carbon Dioxide 22 mmol/L (22-30) 04/27/18 13:40 Anion Gap 22 mmol/L 04/27/18 13:40 BUN 30 mg/dL (9-20) H 04/27/18 13:40 Creatinine 1.8 mg/dL (0.8-1.5) H 04/27/18 13:40 Estimated GFR 44 ml/min 04/27/18 13:40 BUN/Creatinine Ratio 17 % 04/27/18 13:40 Glucose 109 mg/dL (75-100) H 04/27/18 13:40 POC Glucose 114 (70-105) H 04/28/18 06:28 Lactic Acid 1.70 mmol/L (0.7-2.0) 04/19/18 15:13 Calcium 8.7 mg/dL (8.4-10.2) 04/27/18 13:40 Magnesium 2.20 mg/dL (1.7-2.3) 04/22/18 05:08 Total Bilirubin 1.10 mg/dL (0.1-1.2) 04/19/18 14:05 AST 64 units/L (5-40) H 04/19/18 14:05 ALT 78 units/L (7-56) H 04/19/18 14:05 Alkaline Phosphatase 95 units/L (35-129) 04/19/18 14:05 Total Creatine Kinase 41 units/L (55-170) L 04/25/18 06:17 CK-MB (CK-2) 3.3 ng/mL (0.0-4.0) 04/25/18 06:17 CK-MB (CK-2) Rel Index 8.0 (0-4) H 04/25/18 06:17 Troponin T 0.181 ng/mL (0.00-0.029) H* 04/25/18 06:17 Total Protein 6.4 g/dL (6.3-8.2) 04/19/18 14:05 Albumin 3.4 g/dL (3.9-5) L 04/19/18 14:05 Albumin/Globulin Ratio 1.1 % 04/19/18 14:05 Triglycerides 101 mg/dL (2-149) 04/25/18 06:17 Cholesterol 129 mg/dL (50-199) 04/25/18 06:17 LDL Cholesterol Direct 74 mg/dL (50-130) 04/25/18 06:17 HDL Cholesterol 32 mg/dL (40-59) L 04/25/18 06:17 Cholesterol/HDL Ratio 4.03 % 04/25/18 06:17 TSH 0.569 mlU/mL (0.270-4.200) 04/21/18 19:39 Urine Color Yellow (Yellow) 04/19/18 20:39 Urine Turbidity Clear (Clear) 04/19/18 20:39 Urine pH 5.0 (5.0-7.0) 04/19/18 20:39 Ur Specific [place] 1.019 (1.003-1.030) 04/19/18 20:39 Urine Protein 100 mg/dl mg/dL (Negative) 04/19/18 20:39 Urine Glucose (UA) Neg mg/dL (Negative) 04/19/18 20:39 Urine Ketones Neg mg/dL (Negative) 04/19/18 20:39 Urine Blood Mod (Negative) 04/19/18 20:39 Urine Nitrite Neg (Negative) 04/19/18 20:39 Urine Bilirubin Neg (Negative) 04/19/18 20:39 Urine Urobilinogen 2.0 mg/dL (<2.0) 04/19/18 20:39 Ur Leukocyte Esterase Neg (Negative) 04/19/18 20:39 Urine WBC (Auto) 2.0 /HPF (0.0-6.0) 04/19/18 20:39 Urine RBC (Auto) 2.0 /HPF (0.0-6.0) 04/19/18 20:39 Urine WBC Clumps 2+ /HPF 04/19/18 20:39 Amorphous Crystals 2+ 04/19/18 20:39
--- NOTE | 2018-04-28 10:59 | Progress Note ---
Assessment and Plan Acute on chronic systolic heart failure improving Nonsustained ventricular tachycardia no recurrence on amiodarone for suppression lifevest placed Dilated cardiomyopathy, EF 15-20% Coronary artery disease [facility] [place] this admission: 1. 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 85-90% mid LAD stenosis-successfully treated with a 3.5X9 DE stent. On DAPT and stable with no chest pain Acute renal failure improving and not on FABIAN inhibitors, will re evalute as out patient Recommendations: Continue medical therapy for coronary artery disease, dilated cardiomyopathy and paroxysmal NSVT. Once discharged, patient will f/u with [facility] as scheduled. Subjective Date of service: 04/28/18 Principal diagnosis: congestive heart failure Objective Vital Signs Temp Pulse Pulse Resp Resp BP BP 04/28/18 09:40 04/28/18 08:10 75 18 04/28/18 07:50 74 18 04/28/18 06:06 71 144/71 04/28/18 04:22 97.1 F L 74 18 144/85 04/27/18 23:55 68 04/27/18 23:54 97.6 F 68 18 131/73 04/27/18 22:24 73 142/85 04/27/18 20:45 60 20 04/27/18 20:36 77 20 04/27/18 19:10 97.4 F L 04/27/18 19:09 77 142/85 04/27/18 15:51 97.5 F L 68 18 121/69 04/27/18 14:47 70 19 04/27/18 12:30 97.1 F L 68 20 116/76 Pulse Ox 04/28/18 09:40 99 04/28/18 08:10 04/28/18 07:50 04/28/18 06:06 04/28/18 04:22 99 04/27/18 23:55 99 04/27/18 23:54 99 04/27/18 22:24 04/27/18 20:45 04/27/18 20:36 99 04/27/18 19:10 04/27/18 19:09 100 04/27/18 15:51 100 04/27/18 14:47 04/27/18 12:30 98 - Physical Examination General: No Apparent Distress HEENT: Positive: PERRL Neck: Positive: neck supple Neuro: Positive: Grossly Intact Abdomen: Positive: Soft Skin: Positive: Clear Extremities: Absent: edema - Labs and Meds Comprehensive Metabolic Panel 04/27/18 Range/Units 13:40 Sodium 138 (137-145) mmol/L Potassium 4.6 (3.6-5.0) mmol/L Chloride 98.8 (98-107) mmol/L Carbon Dioxide 22 (22-30) mmol/L BUN 30 H (9-20) mg/dL Creatinine 1.8 H (0.8-1.5) mg/dL Glucose 109 H (75-100) mg/dL Calcium 8.7 (8.4-10.2) mg/dL
[2018-04-28] MEDS: CORDARONE PO SCH ×2 (11:51→21:35)
[2018-04-28] MEDS: KEPPRA PO SCH ×2 (11:51→21:34)
[2018-04-28] MEDS: DELTASONE PO SCH (11:51)
[2018-04-28] MEDS: PLAVIX PO SCH (11:51)
[2018-04-28] MEDS: ZITHROMAX PO SCH (11:51)
[2018-04-28] MEDS: COREG PO SCH ×2 (11:52→21:35)
[2018-04-28] MEDS: IMDUR PO SCH (11:52)
[2018-04-28] MEDS: BABY ASPIRIN PO SCH (11:52)
[2018-04-28] MEDS: LASIX PO SCH (11:53)
[2018-04-28] MEDS: HEPARIN SUB-Q SCH ×2 (11:53→21:35)
[2018-04-28] MEDS: cefTRIAXone 2 GM in NACL 0.9% 20 ML IV SCH (16:01)
[2018-04-29] MEDS: APRESOLINE PO SCH ×3 (05:55→22:42)
[2018-04-29] MEDS: DUONEB *Not for PRN Use IH SCH ×3 (09:01→20:14)
[2018-04-29] MEDS: KEPPRA PO SCH ×2 (10:24→22:42)
[2018-04-29] MEDS: DELTASONE PO SCH (10:25)
[2018-04-29] MEDS: ZITHROMAX PO SCH (10:25)
[2018-04-29] MEDS: COREG PO SCH ×2 (10:26→22:42)
[2018-04-29] MEDS: CORDARONE PO SCH ×2 (10:26→22:41)
[2018-04-29] MEDS: LASIX PO SCH (10:26)
[2018-04-29] MEDS: BABY ASPIRIN PO SCH (10:26)
[2018-04-29] MEDS: IMDUR PO SCH (10:27)
[2018-04-29] MEDS: PLAVIX PO SCH (10:27)
[2018-04-29] MEDS: HEPARIN SUB-Q SCH ×2 (10:28→22:42)
--- NOTE | 2018-04-29 11:06 | Progress Note ---
Assessment and Plan Acute on chronic systolic heart failure improving Nonsustained ventricular tachycardia no recurrence on amiodarone for suppression no recurrence of 4 lifevest placed Dilated cardiomyopathy, EF 15-20% Coronary artery disease [facility] this admission: 1. 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 85-90% mid LAD stenosis-successfully treated with a 3.5X9 DE stent. On DAPT and stable with no chest pain Acute renal failure improving Start low-dose FABIAN inhibitor Recommendations: Continue medical therapy for coronary artery disease, dilated cardiomyopathy and paroxysmal NSVT. Once discharged, patient will f/u with [facility] as scheduled. Subjective Date of service: 04/29/18 Principal diagnosis: congestive heart failure Interval history: No events overnight Objective Vital Signs Temp Pulse Pulse Pulse Resp Resp BP 04/29/18 10:27 62 04/29/18 10:26 60 04/29/18 09:05 66 18 04/29/18 09:00 04/29/18 08:55 64 18 04/29/18 08:06 97.7 F 61 20 137/78 04/29/18 05:55 63 126/73 04/29/18 04:52 97.6 F 63 18 04/29/18 00:09 72 04/28/18 23:55 98.2 F 67 18 04/28/18 22:53 83 20 04/28/18 21:35 83 152/94 04/28/18 21:34 83 152/94 04/28/18 21:18 78 18 04/28/18 21:04 04/28/18 21:03 73 20 04/28/18 19:33 84 04/28/18 19:28 97.3 F L 65 18 04/28/18 19:05 73 04/28/18 17:22 97.9 F 92 H 22 151/93 04/28/18 16:00 69 120/58 04/28/18 15:54 65 18 04/28/18 15:40 75 21 04/28/18 12:15 97.8 F 69 22 120/58 04/28/18 11:52 64 140/73 BP Pulse Ox 04/29/18 10:27 04/29/18 10:26 04/29/18 09:05 04/29/18 09:00 97 04/29/18 08:55 04/29/18 08:06 100 04/29/18 05:55 04/29/18 04:52 126/73 99 04/29/18 00:09 100 04/28/18 23:55 118/55 100 04/28/18 22:53 99 04/28/18 21:35 04/28/18 21:34 04/28/18 21:18 04/28/18 21:04 99 04/28/18 21:03 04/28/18 19:33 99 04/28/18 19:28 152/94 99 04/28/18 19:05 04/28/18 17:22 100 04/28/18 16:00 04/28/18 15:54 04/28/18 15:40 04/28/18 12:15 100 04/28/18 11:52 - Physical Examination Narrative exam: Vitals reviewed GEN: No acute distress noted HEENT: Carotids 2+ NECK: Supple CVS: S1 and S2 heard no significant murmur or gallop noted LUNGS/CHEST: Normal auscultation ABD: Soft nontender Extremities: No edema noted normal color NEURO: Alert moves all all 4 extremities PSY: Stable General: No Apparent Distress HEENT: Positive: PERRL Neck: Positive: neck supple Neuro: Positive: Grossly Intact Abdomen: Positive: Soft Skin: Positive: Clear Extremities: Absent: edema - Labs and Meds Comprehensive Metabolic Panel 04/29/18 Range/Units 06:13 Sodium 138 (137-145) mmol/L Potassium 4.7 (3.6-5.0) mmol/L Chloride 101.1 (98-107) mmol/L Carbon Dioxide 26 (22-30) mmol/L BUN 29 H (9-20) mg/dL Creatinine 1.5 (0.8-1.5) mg/dL Glucose 121 H (75-100) mg/dL Calcium 8.0 L (8.4-10.2) mg/dL
--- NOTE | 2018-04-29 16:04 | Progress Note ---
Assessment and Plan Assessment and plan: --Nonsustained VT; on monitor Cardiology recommend patient has LifeVest on ,outpatient evaluation for ICD --Acute on chronic systolic congestive heart failure; EF 10-15%[2016] Dilated cardiomyopathy, continue anti-failure medications, input output monitoring echocardiogram for EF 10-15% during this admission, --CAD s/p cath s/p PCI, 04/24/2018, continue current cardiac medications --Acute metabolic encephalopathy; resolved Multifactorial , due to underlying PNA/sepsis, Treat the underlying cause --Sepsis;due to PNA , received 10 days of Rocephin , DC today 2 more days of Zithromax ,cultures negative to date --Pneumonia; antibiotics, cultures, cough medicine as needed --Acute hypoxic Respiratory failure; improved Due to pneumonia as well as acute exacerbation of congestive heart failure Continue anti-failure medications, oxygen, BiPAP as needed -- Hypertension; moderate control Continue current antihypertensives and when necessary medications --Acute on CKD stage III ; due to ATN, creatinine trending down Creatinine 1.7 today ,avoid nephrotoxins, nephrology if needed --DVT prophylaxis; Lovenox and SCDs --DC planning ;per case management Patient has LifeVest on SNF accepted the patient, awaiting insurance approval Patient is medically stable for discharge History Interval history: Sincerely and examined medical records reviewed Clinically stable No new events Awaiting insurance approval for SNF placement Patient has LifeVest on no new complaints Hospitalist Physical - Constitutional Vitals: Temp Pulse Resp BP Pulse Ox 97.7 F 60 16 137/78 97 04/29/18 08:06 04/29/18 14:51 04/29/18 14:51 04/29/18 08:06 04/29/18 09:00 General appearance: Present: no acute distress, well-nourished - EENT Eyes: Present: PERRL, EOM intact - Neck Neck: Present: supple, normal ROM - Respiratory Respiratory effort: normal Respiratory: negative: rales, rhonchi, wheezing - Cardiovascular Rhythm: regular Heart Sounds: Present: S1 & S2 - Extremities Extremities: no ischemia, No edema - Abdominal General gastrointestinal: soft, non-tender, non-distended, normal bowel sounds - Integumentary Integumentary: Present: clear, warm - Psychiatric Psychiatric: appropriate mood/affect, cooperative - Neurologic Neurologic: CNII-XII intact, moves all extremities Results - Labs CBC & Chem 7: 04/25/18 06:17 04/29/18 06:13 Labs: Laboratory Last Values WBC 7.6 K/mm3 (4.5-11.0) 04/25/18 06:17 RBC 4.26 M/mm3 (3.65-5.03) 04/25/18 06:17 Hgb 12.8 gm/dl (11.8-15.2) 04/25/18 06:17 Hct 38.0 % (35.5-45.6) 04/25/18 06:17 MCV 89 fl (84-94) 04/25/18 06:17 MCH 30 pg (28-32) 04/25/18 06:17 MCHC 34 % (32-34) 04/25/18 06:17 RDW 14.8 % (13.2-15.2) 04/25/18 06:17 Plt Count 159 K/mm3 (140-440) 04/25/18 06:17 Lymph % (Auto) 17.4 % (13.4-35.0) 04/25/18 06:17 [place] % (Auto) 11.6 % (0.0-7.3) H 04/25/18 06:17 Eos % (Auto) 1.0 % (0.0-4.3) 04/25/18 06:17 Baso % (Auto) 0.4 % (0.0-1.8) 04/25/18 06:17 Lymph # 1.3 K/mm3 (1.2-5.4) 04/25/18 06:17 [place] # 0.9 K/mm3 (0.0-0.8) H 04/25/18 06:17 Eos # 0.1 K/mm3 (0.0-0.4) 04/25/18 06:17 Baso # 0.0 K/mm3 (0.0-0.1) 04/25/18 06:17 Add Manual Diff Complete 04/19/18 14:05 Total Counted 100 04/19/18 14:05 Seg Neutrophils % 69.6 % (40.0-70.0) 04/25/18 06:17 Seg Neuts % (Manual) 72.0 % (40.0-70.0) H 04/19/18 14:05 Band Neutrophils % 0 % 04/19/18 14:05 Lymphocytes % (Manual) 12.0 % (13.4-35.0) L 04/19/18 14:05 Reactive Lymphs % (Man) 0 % 04/19/18 14:05 Monocytes % (Manual) 16.0 % (0.0-7.3) H 04/19/18 14:05 Eosinophils % (Manual) 0 % (0.0-4.3) 04/19/18 14:05 Basophils % (Manual) 0 % (0.0-1.8) 04/19/18 14:05 Metamyelocytes % 0 % 04/19/18 14:05 Myelocytes % 0 % 04/19/18 14:05 Promyelocytes % 0 % 04/19/18 14:05 Blast Cells % 0 % 04/19/18 14:05 Nucleated RBC % Not Reportable 04/19/18 14:05 Seg Neutrophils # 5.3 K/mm3 (1.8-7.7) 04/25/18 06:17 Seg Neutrophils # Man 6.6 K/mm3 (1.8-7.7) 04/19/18 14:05 Band Neutrophils # 0.0 K/mm3 04/19/18 14:05 Lymphocytes # (Manual) 1.1 K/mm3 (1.2-5.4) L 04/19/18 14:05 Abs React Lymphs (Man) 0.0 K/mm3 04/19/18 14:05 Monocytes # (Manual) 1.5 K/mm3 (0.0-0.8) H 04/19/18 14:05 Eosinophils # (Manual) 0.0 K/mm3 (0.0-0.4) 04/19/18 14:05 Basophils # (Manual) 0.0 K/mm3 (0.0-0.1) 04/19/18 14:05 Metamyelocytes # 0.0 K/mm3 04/19/18 14:05 Myelocytes # 0.0 K/mm3 04/19/18 14:05 Promyelocytes # 0.0 K/mm3 04/19/18 14:05 Blast Cells # 0.0 K/mm3 04/19/18 14:05 WBC Morphology Not Reportable 04/19/18 14:05 Hypersegmented Neuts Not Reportable 04/19/18 14:05 Hyposegmented Neuts Not Reportable 04/19/18 14:05 Hypogranular Neuts Not Reportable 04/19/18 14:05 Smudge Cells Not Reportable 04/19/18 14:05 Toxic Granulation Not Reportable 04/19/18 14:05 Toxic Vacuolation Not Reportable 04/19/18 14:05 Dohle Bodies Not Reportable 04/19/18 14:05 Pelger-Huet Anomaly Not Reportable 04/19/18 14:05 Karla Rods Not Reportable 04/19/18 14:05 Platelet Estimate Consistent w auto 04/19/18 14:05 Clumped Platelets Not Reportable 04/19/18 14:05 Plt Clumps, EDTA Not Reportable 04/19/18 14:05 Large Platelets Not Reportable 04/19/18 14:05 Giant Platelets Not Reportable 04/19/18 14:05 Platelet Satelliting Not Reportable 04/19/18 14:05 Plt Morphology Comment Not Reportable 04/19/18 14:05 RBC Morphology Not Reportable 04/19/18 14:05 Dimorphic RBCs Not Reportable 04/19/18 14:05 Polychromasia Not Reportable 04/19/18 14:05 Hypochromasia Not Reportable 04/19/18 14:05 Poikilocytosis Not Reportable 04/19/18 14:05 Anisocytosis 1+ 04/19/18 14:05 Microcytosis Not Reportable 04/19/18 14:05 Macrocytosis Not Reportable 04/19/18 14:05 Spherocytes Not Reportable 04/19/18 14:05 Pappenheimer Bodies Not Reportable 04/19/18 14:05 Sickle Cells Not Reportable 04/19/18 14:05 Target Cells Not Reportable 04/19/18 14:05 Tear Drop Cells Not Reportable 04/19/18 14:05 Ovalocytes 1+ 04/19/18 14:05 Helmet Cells Not Reportable 04/19/18 14:05 Gallagher-[place] Bodies Not Reportable 04/19/18 14:05 [place] Rings Not Reportable 04/19/18 14:05 Debora Cells Not Reportable 04/19/18 14:05 Bite Cells Not Reportable 04/19/18 14:05 Crenated Cell Not Reportable 04/19/18 14:05 Elliptocytes Not Reportable 04/19/18 14:05 Acanthocytes (Spur) Not Reportable 04/19/18 14:05 Rouleaux Not Reportable 04/19/18 14:05 Hemoglobin C Crystals Not Reportable 04/19/18 14:05 Schistocytes Not Reportable 04/19/18 14:05 Malaria parasites Not Reportable 04/19/18 14:05 Ben Bodies Not Reportable 04/19/18 14:05 Hem Pathologist Commnt No 04/19/18 14:05 PT 13.7 Sec. (12.2-14.9) 04/24/18 05:57 INR 1.00 (0.87-1.13) 04/24/18 05:57 Activated Clotting Time 164 (74-137) H 04/24/18 15:26 Sodium 138 mmol/L (137-145) 04/29/18 06:13 Potassium 4.7 mmol/L (3.6-5.0) 04/29/18 06:13 Chloride 101.1 mmol/L (98-107) 04/29/18 06:13 Carbon Dioxide 26 mmol/L (22-30) 04/29/18 06:13 Anion Gap 16 mmol/L 04/29/18 06:13 BUN 29 mg/dL (9-20) H 04/29/18 06:13 Creatinine 1.5 mg/dL (0.8-1.5) 04/29/18 06:13 Estimated GFR 55 ml/min 04/29/18 06:13 BUN/Creatinine Ratio 19 % 04/29/18 06:13 Glucose 121 mg/dL (75-100) H 04/29/18 06:13 POC Glucose 114 (70-105) H 04/28/18 06:28 Lactic Acid 1.70 mmol/L (0.7-2.0) 04/19/18 15:13 Calcium 8.0 mg/dL (8.4-10.2) L 04/29/18 06:13 Magnesium 2.20 mg/dL (1.7-2.3) 04/22/18 05:08 Total Bilirubin 1.10 mg/dL (0.1-1.2) 04/19/18 14:05 AST 64 units/L (5-40) H 04/19/18 14:05 ALT 78 units/L (7-56) H 04/19/18 14:05 Alkaline Phosphatase 95 units/L (35-129) 04/19/18 14:05 Total Creatine Kinase 41 units/L (55-170) L 04/25/18 06:17 CK-MB (CK-2) 3.3 ng/mL (0.0-4.0) 04/25/18 06:17 CK-MB (CK-2) Rel Index 8.0 (0-4) H 04/25/18 06:17 Troponin T 0.181 ng/mL (0.00-0.029) H* 04/25/18 06:17 Total Protein 6.4 g/dL (6.3-8.2) 04/19/18 14:05 Albumin 3.4 g/dL (3.9-5) L 04/19/18 14:05 Albumin/Globulin Ratio 1.1 % 04/19/18 14:05 Triglycerides 101 mg/dL (2-149) 04/25/18 06:17 Cholesterol 129 mg/dL (50-199) 04/25/18 06:17 LDL Cholesterol Direct 74 mg/dL (50-130) 04/25/18 06:17 HDL Cholesterol 32 mg/dL (40-59) L 04/25/18 06:17 Cholesterol/HDL Ratio 4.03 % 04/25/18 06:17 TSH 0.569 mlU/mL (0.270-4.200) 04/21/18 19:39 Urine Color Yellow (Yellow) 04/19/18 20:39 Urine Turbidity Clear (Clear) 04/19/18 20:39 Urine pH 5.0 (5.0-7.0) 04/19/18 20:39 Ur Specific [place] 1.019 (1.003-1.030) 04/19/18 20:39 Urine Protein 100 mg/dl mg/dL (Negative) 04/19/18 20:39 Urine Glucose (UA) Neg mg/dL (Negative) 04/19/18 20:39 Urine Ketones Neg mg/dL (Negative) 04/19/18 20:39 Urine Blood Mod (Negative) 04/19/18 20:39 Urine Nitrite Neg (Negative) 04/19/18 20:39 Urine Bilirubin Neg (Negative) 04/19/18 20:39 Urine Urobilinogen 2.0 mg/dL (<2.0) 04/19/18 20:39 Ur Leukocyte Esterase Neg (Negative) 04/19/18 20:39 Urine WBC (Auto) 2.0 /HPF (0.0-6.0) 04/19/18 20:39 Urine RBC (Auto) 2.0 /HPF (0.0-6.0) 04/19/18 20:39 Urine WBC Clumps 2+ /HPF 04/19/18 20:39 Amorphous Crystals 2+ 04/19/18 20:39
[2018-04-30] MEDS: APRESOLINE PO SCH ×3 (05:38→21:54)
[2018-04-30] MEDS: DUONEB *Not for PRN Use IH SCH ×3 (08:03→19:49)
--- NOTE | 2018-04-30 09:32 | Progress Note ---
Assessment and Plan Acute on chronic systolic heart failure Nonsustained ventricular tachycardia on amiodarone for suppression lifevest placed Dilated cardiomyopathy, EF 15-20% Coronary artery disease [facility] this admission: 1. 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 85-90% mid LAD stenosis-successfully treated with a 3.5X9 DE stent. Acute renal failure Recommendations: Continue medical therapy for coronary artery disease, dilated cardiomyopathy and paroxysmal NSVT. Once discharged, patient will f/u with [facility] as scheduled. Subjective Date of service: 04/30/18 Principal diagnosis: congestive heart failure Interval history: Patient has no cardiac complaints. Awaits placement. Objective Vital Signs Temp Pulse Pulse Resp Resp BP BP 04/30/18 08:00 98.1 F 63 20 131/85 04/30/18 07:47 63 20 131/85 04/30/18 05:38 135/47 04/30/18 05:19 98.3 F 67 20 138/83 04/29/18 23:34 98.1 F 70 20 140/76 04/29/18 22:42 110/82 04/29/18 22:00 60 18 04/29/18 20:24 73 18 04/29/18 20:14 64 16 04/29/18 16:36 97.9 F 62 18 112/61 04/29/18 14:51 60 16 04/29/18 14:40 60 16 04/29/18 11:44 97.6 F 64 18 138/76 04/29/18 10:27 62 04/29/18 10:26 60 04/29/18 10:00 18 Pulse Ox 04/30/18 08:00 100 04/30/18 07:47 100 04/30/18 05:38 04/30/18 05:19 100 04/29/18 23:34 99 04/29/18 22:42 04/29/18 22:00 04/29/18 20:24 04/29/18 20:14 100 04/29/18 16:36 99 04/29/18 14:51 04/29/18 14:40 04/29/18 11:44 100 04/29/18 10:27 04/29/18 10:26 04/29/18 10:00 - Physical Examination General: No Apparent Distress HEENT: Positive: PERRL Cardiac: Positive: Reg Rate and Rhythm
[2018-04-30] MEDS: ZITHROMAX PO SCH (10:30)
[2018-04-30] MEDS: IMDUR PO SCH (10:34)
[2018-04-30] MEDS: ZESTRIL PO SCH (10:35)
[2018-04-30] MEDS: BABY ASPIRIN PO SCH (10:36)
[2018-04-30] MEDS: LASIX PO SCH (10:36)
[2018-04-30] MEDS: KEPPRA PO SCH ×2 (10:36→21:54)
[2018-04-30] MEDS: COREG PO SCH ×2 (10:36→21:53)
[2018-04-30] MEDS: DELTASONE PO SCH (10:38)
[2018-04-30] MEDS: CORDARONE PO SCH ×2 (10:38→21:54)
[2018-04-30] MEDS: PLAVIX PO SCH (10:41)
[2018-04-30] MEDS: HEPARIN SUB-Q SCH ×2 (10:42→21:53)
--- NOTE | 2018-04-30 20:55 | Progress Note ---
Assessment and Plan Assessment and plan: --Nonsustained VT; on monitor Patient received LifeVest recommended by cardiology ,outpatient evaluation for ICD --Acute on chronic systolic congestive heart failure; EF 10-15% Dilated cardiomyopathy, continue anti-failure medications, input output monitoring --CAD s/p cath s/p PCI, 04/24/2018, continue current cardiac medications --Acute metabolic encephalopathy; resolved Multifactorial , due to underlying PNA/sepsis, Treat the underlying cause --Sepsis;due to PNA , received 10 days of Rocephin and Zithromax Cultures negative to date --Pneumonia; Received 10 days of antibiotics, cultures negactive, cough medicine as needed --Acute hypoxic Respiratory failure; improved Due to pneumonia as well as acute exacerbation of congestive heart failure Continue anti-failure medications, oxygen, BiPAP as needed -- Hypertension; moderate control Continue current antihypertensives and when necessary medications --Acute on CKD stage III ; due to ATN, creatinine trending down Creatinine 1.5 today ,avoid nephrotoxins, nephrology if needed --DVT prophylaxis; Lovenox and SCDs --DC planning ;per case management Patient has LifeVest on SNF accepted the patient, awaiting insurance approval Patient is medically stable for discharge History Interval history: Patient seen and examined medical records reviewed Patient feels better no new complaints Awaiting insurance approval for SNF placement Medically stable for discharge Hospitalist Physical - Constitutional Vitals: Temp Pulse Resp BP Pulse Ox 98.0 F 74 18 122/72 95 04/30/18 19:53 04/30/18 20:04 04/30/18 20:04 04/30/18 19:53 04/30/18 19:53 General appearance: Present: no acute distress, well-nourished - EENT Eyes: Present: PERRL, EOM intact - Neck Neck: Present: supple, normal ROM - Respiratory Respiratory effort: normal Respiratory: bilateral: diminished, rales, negative: rhonchi, wheezing - Cardiovascular Rhythm: regular Heart Sounds: Present: S1 & S2 - Extremities Extremities: no ischemia, No edema - Abdominal General gastrointestinal: soft, non-tender, non-distended, normal bowel sounds - Integumentary Integumentary: Present: clear, warm - Psychiatric Psychiatric: appropriate mood/affect, other (confused at times) - Neurologic Neurologic: CNII-XII intact, moves all extremities Results - Labs CBC & Chem 7: 04/25/18 06:17 04/29/18 06:13 Labs: Laboratory Last Values WBC 7.6 K/mm3 (4.5-11.0) 04/25/18 06:17 RBC 4.26 M/mm3 (3.65-5.03) 04/25/18 06:17 Hgb 12.8 gm/dl (11.8-15.2) 04/25/18 06:17 Hct 38.0 % (35.5-45.6) 04/25/18 06:17 MCV 89 fl (84-94) 04/25/18 06:17 MCH 30 pg (28-32) 04/25/18 06:17 MCHC 34 % (32-34) 04/25/18 06:17 RDW 14.8 % (13.2-15.2) 04/25/18 06:17 Plt Count 159 K/mm3 (140-440) 04/25/18 06:17 Lymph % (Auto) 17.4 % (13.4-35.0) 04/25/18 06:17 [place] % (Auto) 11.6 % (0.0-7.3) H 04/25/18 06:17 Eos % (Auto) 1.0 % (0.0-4.3) 04/25/18 06:17 Baso % (Auto) 0.4 % (0.0-1.8) 04/25/18 06:17 Lymph # 1.3 K/mm3 (1.2-5.4) 04/25/18 06:17 [place] # 0.9 K/mm3 (0.0-0.8) H 04/25/18 06:17 Eos # 0.1 K/mm3 (0.0-0.4) 04/25/18 06:17 Baso # 0.0 K/mm3 (0.0-0.1) 04/25/18 06:17 Add Manual Diff Complete 04/19/18 14:05 Total Counted 100 04/19/18 14:05 Seg Neutrophils % 69.6 % (40.0-70.0) 04/25/18 06:17 Seg Neuts % (Manual) 72.0 % (40.0-70.0) H 04/19/18 14:05 Band Neutrophils % 0 % 04/19/18 14:05 Lymphocytes % (Manual) 12.0 % (13.4-35.0) L 04/19/18 14:05 Reactive Lymphs % (Man) 0 % 04/19/18 14:05 Monocytes % (Manual) 16.0 % (0.0-7.3) H 04/19/18 14:05 Eosinophils % (Manual) 0 % (0.0-4.3) 04/19/18 14:05 Basophils % (Manual) 0 % (0.0-1.8) 04/19/18 14:05 Metamyelocytes % 0 % 04/19/18 14:05 Myelocytes % 0 % 04/19/18 14:05 Promyelocytes % 0 % 04/19/18 14:05 Blast Cells % 0 % 04/19/18 14:05 Nucleated RBC % Not Reportable 04/19/18 14:05 Seg Neutrophils # 5.3 K/mm3 (1.8-7.7) 04/25/18 06:17 Seg Neutrophils # Man 6.6 K/mm3 (1.8-7.7) 04/19/18 14:05 Band Neutrophils # 0.0 K/mm3 04/19/18 14:05 Lymphocytes # (Manual) 1.1 K/mm3 (1.2-5.4) L 04/19/18 14:05 Abs React Lymphs (Man) 0.0 K/mm3 04/19/18 14:05 Monocytes # (Manual) 1.5 K/mm3 (0.0-0.8) H 04/19/18 14:05 Eosinophils # (Manual) 0.0 K/mm3 (0.0-0.4) 04/19/18 14:05 Basophils # (Manual) 0.0 K/mm3 (0.0-0.1) 04/19/18 14:05 Metamyelocytes # 0.0 K/mm3 04/19/18 14:05 Myelocytes # 0.0 K/mm3 04/19/18 14:05 Promyelocytes # 0.0 K/mm3 04/19/18 14:05 Blast Cells # 0.0 K/mm3 04/19/18 14:05 WBC Morphology Not Reportable 04/19/18 14:05 Hypersegmented Neuts Not Reportable 04/19/18 14:05 Hyposegmented Neuts Not Reportable 04/19/18 14:05 Hypogranular Neuts Not Reportable 04/19/18 14:05 Smudge Cells Not Reportable 04/19/18 14:05 Toxic Granulation Not Reportable 04/19/18 14:05 Toxic Vacuolation Not Reportable 04/19/18 14:05 Dohle Bodies Not Reportable 04/19/18 14:05 Pelger-Huet Anomaly Not Reportable 04/19/18 14:05 Karla Rods Not Reportable 04/19/18 14:05 Platelet Estimate Consistent w auto 04/19/18 14:05 Clumped Platelets Not Reportable 04/19/18 14:05 Plt Clumps, EDTA Not Reportable 04/19/18 14:05 Large Platelets Not Reportable 04/19/18 14:05 Giant Platelets Not Reportable 04/19/18 14:05 Platelet Satelliting Not Reportable 04/19/18 14:05 Plt Morphology Comment Not Reportable 04/19/18 14:05 RBC Morphology Not Reportable 04/19/18 14:05 Dimorphic RBCs Not Reportable 04/19/18 14:05 Polychromasia Not Reportable 04/19/18 14:05 Hypochromasia Not Reportable 04/19/18 14:05 Poikilocytosis Not Reportable 04/19/18 14:05 Anisocytosis 1+ 04/19/18 14:05 Microcytosis Not Reportable 04/19/18 14:05 Macrocytosis Not Reportable 04/19/18 14:05 Spherocytes Not Reportable 04/19/18 14:05 Pappenheimer Bodies Not Reportable 04/19/18 14:05 Sickle Cells Not Reportable 04/19/18 14:05 Target Cells Not Reportable 04/19/18 14:05 Tear Drop Cells Not Reportable 04/19/18 14:05 Ovalocytes 1+ 04/19/18 14:05 Helmet Cells Not Reportable 04/19/18 14:05 Gallagher-[place] Bodies Not Reportable 04/19/18 14:05 [place] Rings Not Reportable 04/19/18 14:05 Debora Cells Not Reportable 04/19/18 14:05 Bite Cells Not Reportable 04/19/18 14:05 Crenated Cell Not Reportable 04/19/18 14:05 Elliptocytes Not Reportable 04/19/18 14:05 Acanthocytes (Spur) Not Reportable 04/19/18 14:05 Rouleaux Not Reportable 04/19/18 14:05 Hemoglobin C Crystals Not Reportable 04/19/18 14:05 Schistocytes Not Reportable 04/19/18 14:05 Malaria parasites Not Reportable 04/19/18 14:05 Ben Bodies Not Reportable 04/19/18 14:05 Hem Pathologist Commnt No 04/19/18 14:05 PT 13.7 Sec. (12.2-14.9) 04/24/18 05:57 INR 1.00 (0.87-1.13) 04/24/18 05:57 Activated Clotting Time 164 (74-137) H 04/24/18 15:26 Sodium 138 mmol/L (137-145) 04/29/18 06:13 Potassium 4.7 mmol/L (3.6-5.0) 04/29/18 06:13 Chloride 101.1 mmol/L (98-107) 04/29/18 06:13 Carbon Dioxide 26 mmol/L (22-30) 04/29/18 06:13 Anion Gap 16 mmol/L 04/29/18 06:13 BUN 29 mg/dL (9-20) H 04/29/18 06:13 Creatinine 1.5 mg/dL (0.8-1.5) 04/29/18 06:13 Estimated GFR 55 ml/min 04/29/18 06:13 BUN/Creatinine Ratio 19 % 04/29/18 06:13 Glucose 121 mg/dL (75-100) H 04/29/18 06:13 POC Glucose 114 (70-105) H 04/28/18 06:28 Lactic Acid 1.70 mmol/L (0.7-2.0) 04/19/18 15:13 Calcium 8.0 mg/dL (8.4-10.2) L 04/29/18 06:13 Magnesium 2.20 mg/dL (1.7-2.3) 04/22/18 05:08 Total Bilirubin 1.10 mg/dL (0.1-1.2) 04/19/18 14:05 AST 64 units/L (5-40) H 04/19/18 14:05 ALT 78 units/L (7-56) H 04/19/18 14:05 Alkaline Phosphatase 95 units/L (35-129) 04/19/18 14:05 Total Creatine Kinase 41 units/L (55-170) L 04/25/18 06:17 CK-MB (CK-2) 3.3 ng/mL (0.0-4.0) 04/25/18 06:17 CK-MB (CK-2) Rel Index 8.0 (0-4) H 04/25/18 06:17 Troponin T 0.181 ng/mL (0.00-0.029) H* 04/25/18 06:17 Total Protein 6.4 g/dL (6.3-8.2) 04/19/18 14:05 Albumin 3.4 g/dL (3.9-5) L 04/19/18 14:05 Albumin/Globulin Ratio 1.1 % 04/19/18 14:05 Triglycerides 101 mg/dL (2-149) 04/25/18 06:17 Cholesterol 129 mg/dL (50-199) 04/25/18 06:17 LDL Cholesterol Direct 74 mg/dL (50-130) 04/25/18 06:17 HDL Cholesterol 32 mg/dL (40-59) L 04/25/18 06:17 Cholesterol/HDL Ratio 4.03 % 04/25/18 06:17 TSH 0.569 mlU/mL (0.270-4.200) 04/21/18 19:39 Urine Color Yellow (Yellow) 04/19/18 20:39 Urine Turbidity Clear (Clear) 04/19/18 20:39 Urine pH 5.0 (5.0-7.0) 04/19/18 20:39 Ur Specific [place] 1.019 (1.003-1.030) 04/19/18 20:39 Urine Protein 100 mg/dl mg/dL (Negative) 04/19/18 20:39 Urine Glucose (UA) Neg mg/dL (Negative) 04/19/18 20:39 Urine Ketones Neg mg/dL (Negative) 04/19/18 20:39 Urine Blood Mod (Negative) 04/19/18 20:39 Urine Nitrite Neg (Negative) 04/19/18 20:39 Urine Bilirubin Neg (Negative) 04/19/18 20:39 Urine Urobilinogen 2.0 mg/dL (<2.0) 04/19/18 20:39 Ur Leukocyte Esterase Neg (Negative) 04/19/18 20:39 Urine WBC (Auto) 2.0 /HPF (0.0-6.0) 04/19/18 20:39 Urine RBC (Auto) 2.0 /HPF (0.0-6.0) 04/19/18 20:39 Urine WBC Clumps 2+ /HPF 04/19/18 20:39 Amorphous Crystals 2+ 04/19/18 20:39
[2018-05-01] MEDS: APRESOLINE PO SCH ×3 (07:00→23:31)
--- NOTE | 2018-05-01 09:18 | Progress Note ---
Assessment and Plan Acute on chronic systolic heart failure Nonsustained ventricular tachycardia on amiodarone for suppression lifevest placed Dilated cardiomyopathy, EF 15-20% Coronary artery disease [facility] this admission: 1. [employer]OVING [employer] of RCA-medical therapy 2. 85-90% mid LAD stenosis-successfully treated with a 3.5X9 DE stent. Acute renal failure Recommendations: Continue medical therapy for coronary artery disease, dilated cardiomyopathy and paroxysmal NSVT. Once discharged, patient will f/u with [facility] as scheduled. Subjective Date of service: 05/01/18 Principal diagnosis: congestive heart failure Interval history: Patient has no cardiac complaints. Awaits placement. Objective Vital Signs Temp Pulse Pulse Resp Resp BP Pulse Ox 05/01/18 04:27 97.8 F 63 18 119/78 96 05/01/18 00:25 98.5 F 67 18 104/63 95 04/30/18 22:00 58 L 04/30/18 20:04 74 18 04/30/18 19:53 98.0 F 69 18 122/72 95 04/30/18 19:50 99 04/30/18 19:49 72 18 04/30/18 16:45 65 20 119/76 96 04/30/18 16:00 98.3 F 04/30/18 15:53 68 04/30/18 14:22 68 18 04/30/18 14:12 72 18 04/30/18 12:00 97.3 F L 04/30/18 11:59 77 20 154/88 99 04/30/18 10:36 131/85 04/30/18 10:35 131/85 04/30/18 10:34 131/85 04/30/18 10:00 77 - Physical Examination General: No Apparent Distress HEENT: Positive: PERRL Cardiac: Positive: Reg Rate and Rhythm Extremities: Absent: edema
[2018-05-01] MEDS: DUONEB *Not for PRN Use IH SCH ×3 (09:20→20:23)
[2018-05-01 10:55] LABS: Hematocrit 38.5 % (35.5-45.6); Hemoglobin 12.2 gm/dl (11.8-15.2); Mean Corpuscular HGB Conc 32 % (32-34); Mean Corpuscular Hemoglobin 29 pg (28-32); Mean Corpuscular Volume 92 fl (84-94); Platelet Count 279 K/mm3 (140-440); Red Blood Count 4.17 M/mm3 (3.65-5.03); Red Cell Distribution Width 15.6 % (13.2-15.2)
[2018-05-01 11:16] LABS: Calcium 8.7 mg/dL (8.4-10.2)
[2018-05-01] MEDS: PLAVIX PO SCH (11:54)
[2018-05-01] MEDS: KEPPRA PO SCH ×2 (11:54→23:29)
[2018-05-01] MEDS: COREG PO SCH ×2 (11:54→23:31)
[2018-05-01] MEDS: ZITHROMAX PO SCH (11:55)
[2018-05-01] MEDS: CORDARONE PO SCH ×2 (11:56→23:31)
[2018-05-01] MEDS: BABY ASPIRIN PO SCH (11:57)
[2018-05-01] MEDS: LASIX PO SCH (11:57)
[2018-05-01] MEDS: DELTASONE PO SCH (11:57)
[2018-05-01] MEDS: IMDUR PO SCH (11:58)
[2018-05-01] MEDS: ZESTRIL PO SCH (12:06)
[2018-05-01] MEDS: HEPARIN SUB-Q SCH ×2 (12:07→23:32)
--- NOTE | 2018-05-01 12:26 | Progress Note ---
Assessment and Plan Assessment and plan: --Nonsustained VT; on monitor Patient received LifeVest recommended by cardiology ,outpatient evaluation for ICD --Acute on chronic systolic congestive heart failure; EF 10-15% Dilated cardiomyopathy, continue anti-failure medications, input output monitoring --CAD s/p cath s/p PCI, 04/24/2018, continue current cardiac medications --Acute metabolic encephalopathy; resolved Multifactorial , due to underlying PNA/sepsis, Treat the underlying cause --Sepsis;due to PNA , received 10 days of Rocephin and Zithromax Cultures negative to date --Pneumonia; Received 10 days of antibiotics, cultures negactive, cough medicine as needed --Acute hypoxic Respiratory failure; improved Due to pneumonia as well as acute exacerbation of congestive heart failure Continue anti-failure medications, oxygen, BiPAP as needed -- Hypertension; moderate control Continue current antihypertensives and when necessary medications --Acute on CKD stage III ; due to ATN, creatinine trending down Creatinine 1.5 today ,avoid nephrotoxins, nephrology if needed --DVT prophylaxis; Lovenox and SCDs --DC planning ;per case management Patient has LifeVest on SNF accepted the patient, awaiting insurance approval Patient is medically stable for discharge History Interval history: no new issues Hospitalist Physical - Constitutional Vitals: Temp Pulse Resp BP Pulse Ox 97.8 F 71 20 114/56 97 05/01/18 04:27 05/01/18 09:37 05/01/18 09:37 05/01/18 12:06 05/01/18 09:34 General appearance: Present: no acute distress, well-nourished - EENT Eyes: Present: PERRL, EOM intact ENT: hearing intact, clear oral mucosa, dentition normal - Neck Neck: Present: supple, normal ROM - Respiratory Respiratory effort: normal Respiratory: bilateral: CTA - Cardiovascular Rhythm: regular Heart Sounds: Present: S1 & S2. Absent: gallop, rub - Extremities Extremities: no ischemia, No edema, Full ROM - Abdominal General gastrointestinal: soft, non-tender, non-distended, normal bowel sounds - Integumentary Integumentary: Present: clear, warm, dry - Neurologic Neurologic: CNII-XII intact, moves all extremities Results - Labs CBC & Chem 7: 05/01/18 09:05 05/01/18 09:05 Labs: Laboratory Last Values WBC 12.1 K/mm3 (4.5-11.0) H 05/01/18 09:05 RBC 4.17 M/mm3 (3.65-5.03) 05/01/18 09:05 Hgb 12.2 gm/dl (11.8-15.2) 05/01/18 09:05 Hct 38.5 % (35.5-45.6) 05/01/18 09:05 MCV 92 fl (84-94) 05/01/18 09:05 MCH 29 pg (28-32) 05/01/18 09:05 MCHC 32 % (32-34) 05/01/18 09:05 RDW 15.6 % (13.2-15.2) H 05/01/18 09:05 Plt Count 279 K/mm3 (140-440) 05/01/18 09:05 Lymph % (Auto) 17.4 % (13.4-35.0) 04/25/18 06:17 [place] % (Auto) 11.6 % (0.0-7.3) H 04/25/18 06:17 Eos % (Auto) 1.0 % (0.0-4.3) 04/25/18 06:17 Baso % (Auto) 0.4 % (0.0-1.8) 04/25/18 06:17 Lymph # 1.3 K/mm3 (1.2-5.4) 04/25/18 06:17 [place] # 0.9 K/mm3 (0.0-0.8) H 04/25/18 06:17 Eos # 0.1 K/mm3 (0.0-0.4) 04/25/18 06:17 Baso # 0.0 K/mm3 (0.0-0.1) 04/25/18 06:17 Add Manual Diff Complete 04/19/18 14:05 Total Counted 100 04/19/18 14:05 Seg Neutrophils % 69.6 % (40.0-70.0) 04/25/18 06:17 Seg Neuts % (Manual) 72.0 % (40.0-70.0) H 04/19/18 14:05 Band Neutrophils % 0 % 04/19/18 14:05 Lymphocytes % (Manual) 12.0 % (13.4-35.0) L 04/19/18 14:05 Reactive Lymphs % (Man) 0 % 04/19/18 14:05 Monocytes % (Manual) 16.0 % (0.0-7.3) H 04/19/18 14:05 Eosinophils % (Manual) 0 % (0.0-4.3) 04/19/18 14:05 Basophils % (Manual) 0 % (0.0-1.8) 04/19/18 14:05 Metamyelocytes % 0 % 04/19/18 14:05 Myelocytes % 0 % 04/19/18 14:05 Promyelocytes % 0 % 04/19/18 14:05 Blast Cells % 0 % 04/19/18 14:05 Nucleated RBC % Not Reportable 04/19/18 14:05 Seg Neutrophils # 5.3 K/mm3 (1.8-7.7) 04/25/18 06:17 Seg Neutrophils # Man 6.6 K/mm3 (1.8-7.7) 04/19/18 14:05 Band Neutrophils # 0.0 K/mm3 04/19/18 14:05 Lymphocytes # (Manual) 1.1 K/mm3 (1.2-5.4) L 04/19/18 14:05 Abs React Lymphs (Man) 0.0 K/mm3 04/19/18 14:05 Monocytes # (Manual) 1.5 K/mm3 (0.0-0.8) H 04/19/18 14:05 Eosinophils # (Manual) 0.0 K/mm3 (0.0-0.4) 04/19/18 14:05 Basophils # (Manual) 0.0 K/mm3 (0.0-0.1) 04/19/18 14:05 Metamyelocytes # 0.0 K/mm3 04/19/18 14:05 Myelocytes # 0.0 K/mm3 04/19/18 14:05 Promyelocytes # 0.0 K/mm3 04/19/18 14:05 Blast Cells # 0.0 K/mm3 04/19/18 14:05 WBC Morphology Not Reportable 04/19/18 14:05 Hypersegmented Neuts Not Reportable 04/19/18 14:05 Hyposegmented Neuts Not Reportable 04/19/18 14:05 Hypogranular Neuts Not Reportable 04/19/18 14:05 Smudge Cells Not Reportable 04/19/18 14:05 Toxic Granulation Not Reportable 04/19/18 14:05 Toxic Vacuolation Not Reportable 04/19/18 14:05 Dohle Bodies Not Reportable 04/19/18 14:05 Pelger-Huet Anomaly Not Reportable 04/19/18 14:05 Karla Rods Not Reportable 04/19/18 14:05 Platelet Estimate Consistent w auto 04/19/18 14:05 Clumped Platelets Not Reportable 04/19/18 14:05 Plt Clumps, EDTA Not Reportable 04/19/18 14:05 Large Platelets Not Reportable 04/19/18 14:05 Giant Platelets Not Reportable 04/19/18 14:05 Platelet Satelliting Not Reportable 04/19/18 14:05 Plt Morphology Comment Not Reportable 04/19/18 14:05 RBC Morphology Not Reportable 04/19/18 14:05 Dimorphic RBCs Not Reportable 04/19/18 14:05 Polychromasia Not Reportable 04/19/18 14:05 Hypochromasia Not Reportable 04/19/18 14:05 Poikilocytosis Not Reportable 04/19/18 14:05 Anisocytosis 1+ 04/19/18 14:05 Microcytosis Not Reportable 04/19/18 14:05 Macrocytosis Not Reportable 04/19/18 14:05 Spherocytes Not Reportable 04/19/18 14:05 Pappenheimer Bodies Not Reportable 04/19/18 14:05 Sickle Cells Not Reportable 04/19/18 14:05 Target Cells Not Reportable 04/19/18 14:05 Tear Drop Cells Not Reportable 04/19/18 14:05 Ovalocytes 1+ 04/19/18 14:05 Helmet Cells Not Reportable 04/19/18 14:05 [place] Bodies Not Reportable 04/19/18 14:05 [place] Rings Not Reportable 04/19/18 14:05 [place] Cells Not Reportable 04/19/18 14:05 Bite Cells Not Reportable 04/19/18 14:05 Crenated Cell Not Reportable 04/19/18 14:05 Elliptocytes Not Reportable 04/19/18 14:05 Acanthocytes (Spur) Not Reportable 04/19/18 14:05 Rouleaux Not Reportable 04/19/18 14:05 Hemoglobin C Crystals Not Reportable 04/19/18 14:05 Schistocytes Not Reportable 04/19/18 14:05 Malaria parasites Not Reportable 04/19/18 14:05 Ben Bodies Not Reportable 04/19/18 14:05 Hem Pathologist Commnt No 04/19/18 14:05 PT 13.7 Sec. (12.2-14.9) 04/24/18 05:57 INR 1.00 (0.87-1.13) 04/24/18 05:57 Activated Clotting Time 164 (74-137) H 04/24/18 15:26 Sodium 135 mmol/L (137-145) L 05/01/18 09:05 Potassium 5.7 mmol/L (3.6-5.0) H D 05/01/18 09:05 Chloride 99.3 mmol/L (98-107) 05/01/18 09:05 Carbon Dioxide 22 mmol/L (22-30) 05/01/18 09:05 Anion Gap 19 mmol/L 05/01/18 09:05 BUN 35 mg/dL (9-20) H 05/01/18 09:05 Creatinine 1.6 mg/dL (0.8-1.5) H 05/01/18 09:05 Estimated GFR 51 ml/min 05/01/18 09:05 BUN/Creatinine Ratio 22 % 05/01/18 09:05 Glucose 64 mg/dL (75-100) L 05/01/18 09:05 POC Glucose 114 (70-105) H 04/28/18 06:28 Lactic Acid 1.70 mmol/L (0.7-2.0) 04/19/18 15:13 Calcium 8.7 mg/dL (8.4-10.2) 05/01/18 09:05 Magnesium 2.20 mg/dL (1.7-2.3) 04/22/18 05:08 Total Bilirubin 1.10 mg/dL (0.1-1.2) 04/19/18 14:05 AST 64 units/L (5-40) H 04/19/18 14:05 ALT 78 units/L (7-56) H 04/19/18 14:05 Alkaline Phosphatase 95 units/L (35-129) 04/19/18 14:05 Total Creatine Kinase 41 units/L (55-170) L 04/25/18 06:17 CK-MB (CK-2) 3.3 ng/mL (0.0-4.0) 04/25/18 06:17 CK-MB (CK-2) Rel Index 8.0 (0-4) H 04/25/18 06:17 Troponin T 0.181 ng/mL (0.00-0.029) H* 04/25/18 06:17 Total Protein 6.4 g/dL (6.3-8.2) 04/19/18 14:05 Albumin 3.4 g/dL (3.9-5) L 04/19/18 14:05 Albumin/Globulin Ratio 1.1 % 04/19/18 14:05 Triglycerides 101 mg/dL (2-149) 04/25/18 06:17 Cholesterol 129 mg/dL (50-199) 04/25/18 06:17 LDL Cholesterol Direct 74 mg/dL (50-130) 04/25/18 06:17 HDL Cholesterol 32 mg/dL (40-59) L 04/25/18 06:17 Cholesterol/HDL Ratio 4.03 % 04/25/18 06:17 TSH 0.569 mlU/mL (0.270-4.200) 04/21/18 19:39 Urine Color Yellow (Yellow) 04/19/18 20:39 Urine Turbidity Clear (Clear) 04/19/18 20:39 Urine pH 5.0 (5.0-7.0) 04/19/18 20:39 Ur Specific [place] 1.019 (1.003-1.030) 04/19/18 20:39 Urine Protein 100 mg/dl mg/dL (Negative) 04/19/18 20:39 Urine Glucose (UA) Neg mg/dL (Negative) 04/19/18 20:39 Urine Ketones Neg mg/dL (Negative) 04/19/18 20:39 Urine Blood Mod (Negative) 04/19/18 20:39 Urine Nitrite Neg (Negative) 04/19/18 20:39 Urine Bilirubin Neg (Negative) 04/19/18 20:39 Urine Urobilinogen 2.0 mg/dL (<2.0) 04/19/18 20:39 Ur Leukocyte Esterase Neg (Negative) 04/19/18 20:39 Urine WBC (Auto) 2.0 /HPF (0.0-6.0) 04/19/18 20:39 Urine RBC (Auto) 2.0 /HPF (0.0-6.0) 04/19/18 20:39 Urine WBC Clumps 2+ /HPF 04/19/18 20:39 Amorphous Crystals 2+ 04/19/18 20:39
[2018-05-01 12:37] LABS: Anisocytosis 1+; Basophils % (Manual) 0 % (0.0-1.8); Total Cells Counted 100
[2018-05-01 12:38] LABS: Platelet Estimate Cons
[2018-05-01] MEDS: ROBITUSSIN PO PRN (23:32)
[2018-05-02] MEDS: APRESOLINE PO SCH ×2 (06:10→13:55)
--- NOTE | 2018-05-02 09:22 | Progress Note ---
Assessment and Plan Acute on chronic systolic heart failure Nonsustained ventricular tachycardia on amiodarone for suppression lifevest placed Dilated cardiomyopathy, EF 15-20% Coronary artery disease [facility] this admission: 1. 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 85-90% mid LAD stenosis-successfully treated with a 3.5X9 DE stent. Acute renal failure Recommendations: Continue medical therapy for coronary artery disease, dilated cardiomyopathy and paroxysmal NSVT. Once discharged, patient will f/u with [facility] as scheduled. Subjective Date of service: 05/02/18 Principal diagnosis: congestive heart failure Interval history: Patient has no cardiac complaints. Awaits placement. Objective Vital Signs Temp Pulse Pulse Resp Resp BP BP 05/02/18 04:36 98.2 F 69 17 140/79 05/02/18 00:46 98.3 F 73 20 128/71 05/01/18 22:00 78 05/01/18 20:35 72 20 05/01/18 20:25 78 20 05/01/18 20:22 98.6 F 78 20 125/66 05/01/18 20:17 98.6 F 76 19 125/66 05/01/18 18:49 111/56 05/01/18 15:53 98.0 F 68 18 111/60 05/01/18 14:04 80 20 05/01/18 13:55 78 18 05/01/18 12:33 98.2 F 63 16 135/66 05/01/18 12:06 114/56 05/01/18 11:58 114/56 05/01/18 11:54 114/56 05/01/18 10:00 78 20 05/01/18 09:37 71 20 05/01/18 09:34 Pulse Ox 05/02/18 04:36 98 05/02/18 00:46 96 05/01/18 22:00 05/01/18 20:35 05/01/18 20:25 95 05/01/18 20:22 05/01/18 20:17 95 05/01/18 18:49 05/01/18 15:53 97 05/01/18 14:04 05/01/18 13:55 05/01/18 12:33 96 05/01/18 12:06 05/01/18 11:58 05/01/18 11:54 05/01/18 10:00 05/01/18 09:37 05/01/18 09:34 97 - Physical Examination General: No Apparent Distress HEENT: Positive: PERRL Cardiac: Positive: Reg Rate and Rhythm - Labs and Meds CBC 05/01/18 Range/Units 09:05 WBC 12.1 H (4.5-11.0) K/mm3 RBC 4.17 (3.65-5.03) M/mm3 Hgb 12.2 (11.8-15.2) gm/dl Hct 38.5 (35.5-45.6) % Plt Count 279 (140-440) K/mm3 Comprehensive Metabolic Panel 05/01/18 Range/Units 09:05 Sodium 135 L (137-145) mmol/L Potassium 5.7 H D (3.6-5.0) mmol/L Chloride 99.3 (98-107) mmol/L Carbon Dioxide 22 (22-30) mmol/L BUN 35 H (9-20) mg/dL Creatinine 1.6 H (0.8-1.5) mg/dL Glucose 64 L (75-100) mg/dL Calcium 8.7 (8.4-10.2) mg/dL
[2018-05-02] MEDS: DUONEB *Not for PRN Use IH SCH ×3 (09:38→21:08)
[2018-05-02] MEDS: COREG PO SCH (12:15)
[2018-05-02] MEDS: ZITHROMAX PO SCH (12:15)
[2018-05-02] MEDS: CORDARONE PO SCH (12:15)
[2018-05-02] MEDS: ZESTRIL PO SCH (12:15)
[2018-05-02] MEDS: PLAVIX PO SCH (12:15)
[2018-05-02] MEDS: IMDUR PO SCH (12:15)
[2018-05-02] MEDS: HEPARIN SUB-Q SCH (12:15)
[2018-05-02] MEDS: LASIX PO SCH (12:15)
[2018-05-02] MEDS: BABY ASPIRIN PO SCH (12:15)
[2018-05-02] MEDS: DELTASONE PO SCH (12:15)
[2018-05-02] MEDS: KEPPRA PO SCH (12:15)
[2018-05-03] MEDS: APRESOLINE PO SCH ×4 (00:34→23:14)
[2018-05-03] MEDS: ROBITUSSIN PO PRN (00:34)
[2018-05-03] MEDS: KEPPRA PO SCH ×3 (00:34→23:13)
[2018-05-03] MEDS: COREG PO SCH ×3 (00:34→23:13)
[2018-05-03] MEDS: HEPARIN SUB-Q SCH ×3 (00:35→23:14)
[2018-05-03] MEDS: CORDARONE PO SCH ×3 (00:35→23:14)
[2018-05-03] MEDS: DUONEB *Not for PRN Use IH SCH ×3 (07:51→20:30)
--- NOTE | 2018-05-03 10:34 | Progress Note ---
Assessment and Plan Assessment and plan: --Nonsustained VT; on monitor Patient received LifeVest recommended by cardiology ,outpatient evaluation for ICD --Acute on chronic systolic congestive heart failure; EF 10-15% Dilated cardiomyopathy, continue anti-failure medications, input output monitoring --CAD s/p cath s/p PCI, 04/24/2018, continue current cardiac medications --Acute metabolic encephalopathy; resolved Multifactorial , due to underlying PNA/sepsis, Treat the underlying cause --Sepsis;due to PNA , received 10 days of Rocephin and Zithromax Cultures negative to date --Pneumonia; Received 10 days of antibiotics, cultures negactive, cough medicine as needed --Acute hypoxic Respiratory failure; improved Due to pneumonia as well as acute exacerbation of congestive heart failure Continue anti-failure medications, oxygen, BiPAP as needed -- Hypertension; moderate control Continue current antihypertensives and when necessary medications --Acute on CKD stage III ; due to ATN, creatinine trending down Creatinine 1.5 today ,avoid nephrotoxins, nephrology if needed --DVT prophylaxis; Lovenox and SCDs --DC planning ;per case management Patient has LifeVest on SNF accepted the patient, awaiting insurance approval Patient is medically stable for discharge History Interval history: no new issues Hospitalist Physical - Constitutional Vitals: Temp Pulse Resp BP Pulse Ox 97.9 F 66 20 120/68 99 05/03/18 07:38 05/03/18 07:39 05/03/18 08:23 05/03/18 07:38 05/03/18 07:39 General appearance: Present: no acute distress, well-nourished - EENT Eyes: Present: PERRL, EOM intact ENT: hearing intact, clear oral mucosa, dentition normal - Neck Neck: Present: supple, normal ROM - Respiratory Respiratory effort: normal Respiratory: bilateral: CTA - Cardiovascular Rhythm: regular Heart Sounds: Present: S1 & S2. Absent: gallop, rub - Extremities Extremities: no ischemia, No edema, Full ROM - Abdominal General gastrointestinal: soft, non-tender, non-distended, normal bowel sounds - Integumentary Integumentary: Present: clear, warm, dry - Neurologic Neurologic: CNII-XII intact, moves all extremities Results - Labs CBC & Chem 7: 05/01/18 09:05 05/01/18 09:05 Labs: Laboratory Last Values WBC 12.1 K/mm3 (4.5-11.0) H 05/01/18 09:05 RBC 4.17 M/mm3 (3.65-5.03) 05/01/18 09:05 Hgb 12.2 gm/dl (11.8-15.2) 05/01/18 09:05 Hct 38.5 % (35.5-45.6) 05/01/18 09:05 MCV 92 fl (84-94) 05/01/18 09:05 MCH 29 pg (28-32) 05/01/18 09:05 MCHC 32 % (32-34) 05/01/18 09:05 RDW 15.6 % (13.2-15.2) H 05/01/18 09:05 Plt Count 279 K/mm3 (140-440) 05/01/18 09:05 Lymph % (Auto) 17.4 % (13.4-35.0) 04/25/18 06:17 [place] % (Auto) 11.6 % (0.0-7.3) H 04/25/18 06:17 Eos % (Auto) 1.0 % (0.0-4.3) 04/25/18 06:17 Baso % (Auto) 0.4 % (0.0-1.8) 04/25/18 06:17 Lymph # 1.3 K/mm3 (1.2-5.4) 04/25/18 06:17 [place] # 0.9 K/mm3 (0.0-0.8) H 04/25/18 06:17 Eos # 0.1 K/mm3 (0.0-0.4) 04/25/18 06:17 Baso # 0.0 K/mm3 (0.0-0.1) 04/25/18 06:17 Add Manual Diff Complete 05/01/18 09:05 Total Counted 100 05/01/18 09:05 Seg Neutrophils % 69.6 % (40.0-70.0) 04/25/18 06:17 Seg Neuts % (Manual) 66.0 % (40.0-70.0) 05/01/18 09:05 Band Neutrophils % 0 % 05/01/18 09:05 Lymphocytes % (Manual) 17.0 % (13.4-35.0) 05/01/18 09:05 Reactive Lymphs % (Man) 1.0 % 05/01/18 09:05 Monocytes % (Manual) 14.0 % (0.0-7.3) H 05/01/18 09:05 Eosinophils % (Manual) 1.0 % (0.0-4.3) 05/01/18 09:05 Basophils % (Manual) 0 % (0.0-1.8) 05/01/18 09:05 Metamyelocytes % 1.0 % 05/01/18 09:05 Myelocytes % 0 % 05/01/18 09:05 Promyelocytes % 0 % 05/01/18 09:05 Blast Cells % 0 % 05/01/18 09:05 Nucleated RBC % Not Reportable 05/01/18 09:05 Seg Neutrophils # 5.3 K/mm3 (1.8-7.7) 04/25/18 06:17 Seg Neutrophils # Man 8.0 K/mm3 (1.8-7.7) H 05/01/18 09:05 Band Neutrophils # 0.0 K/mm3 05/01/18 09:05 Lymphocytes # (Manual) 2.1 K/mm3 (1.2-5.4) 05/01/18 09:05 Abs React Lymphs (Man) 0.1 K/mm3 05/01/18 09:05 Monocytes # (Manual) 1.7 K/mm3 (0.0-0.8) H 05/01/18 09:05 Eosinophils # (Manual) 0.1 K/mm3 (0.0-0.4) 05/01/18 09:05 Basophils # (Manual) 0.0 K/mm3 (0.0-0.1) 05/01/18 09:05 Metamyelocytes # 0.1 K/mm3 05/01/18 09:05 Myelocytes # 0.0 K/mm3 05/01/18 09:05 Promyelocytes # 0.0 K/mm3 05/01/18 09:05 Blast Cells # 0.0 K/mm3 05/01/18 09:05 WBC Morphology Not Reportable 05/01/18 09:05 Hypersegmented Neuts Not Reportable 05/01/18 09:05 Hyposegmented Neuts Not Reportable 05/01/18 09:05 Hypogranular Neuts Not Reportable 05/01/18 09:05 Smudge Cells Not Reportable 05/01/18 09:05 Toxic Granulation Not Reportable 05/01/18 09:05 Toxic Vacuolation Not Reportable 05/01/18 09:05 Dohle Bodies Not Reportable 05/01/18 09:05 Pelger-Huet Anomaly Not Reportable 05/01/18 09:05 Karla Rods Not Reportable 05/01/18 09:05 Platelet Estimate Cons 05/01/18 09:05 Clumped Platelets Not Reportable 05/01/18 09:05 Plt Clumps, EDTA Not Reportable 05/01/18 09:05 Large Platelets Not Reportable 05/01/18 09:05 Giant Platelets Not Reportable 05/01/18 09:05 Platelet Satelliting Not Reportable 05/01/18 09:05 Plt Morphology Comment Not Reportable 05/01/18 09:05 RBC Morphology Not Reportable 05/01/18 09:05 Dimorphic RBCs Not Reportable 05/01/18 09:05 Polychromasia Not Reportable 05/01/18 09:05 Hypochromasia Not Reportable 05/01/18 09:05 Poikilocytosis Not Reportable 05/01/18 09:05 Anisocytosis 1+ 05/01/18 09:05 Microcytosis Not Reportable 05/01/18 09:05 Macrocytosis Not Reportable 05/01/18 09:05 Spherocytes Not Reportable 05/01/18 09:05 Pappenheimer Bodies Not Reportable 05/01/18 09:05 Sickle Cells Not Reportable 05/01/18 09:05 Target Cells Not Reportable 05/01/18 09:05 Tear Drop Cells Not Reportable 05/01/18 09:05 Ovalocytes Not Reportable 05/01/18 09:05 Helmet Cells Not Reportable 05/01/18 09:05 Gallagher-[place] Bodies Not Reportable 05/01/18 09:05 [place] Rings Not Reportable 05/01/18 09:05 [place] Cells Not Reportable 05/01/18 09:05 Bite Cells Not Reportable 05/01/18 09:05 Crenated Cell Not Reportable 05/01/18 09:05 Elliptocytes Not Reportable 05/01/18 09:05 Acanthocytes (Spur) Not Reportable 05/01/18 09:05 Rouleaux Not Reportable 05/01/18 09:05 Hemoglobin C Crystals Not Reportable 05/01/18 09:05 Schistocytes Not Reportable 05/01/18 09:05 Malaria parasites Not Reportable 05/01/18 09:05 Ben Bodies Not Reportable 05/01/18 09:05 Hem Pathologist Commnt No 05/01/18 09:05 PT 13.7 Sec. (12.2-14.9) 04/24/18 05:57 INR 1.00 (0.87-1.13) 04/24/18 05:57 Activated Clotting Time 164 (74-137) H 04/24/18 15:26 Sodium 135 mmol/L (137-145) L 05/01/18 09:05 Potassium 5.7 mmol/L (3.6-5.0) H D 05/01/18 09:05 Chloride 99.3 mmol/L (98-107) 05/01/18 09:05 Carbon Dioxide 22 mmol/L (22-30) 05/01/18 09:05 Anion Gap 19 mmol/L 05/01/18 09:05 BUN 35 mg/dL (9-20) H 05/01/18 09:05 Creatinine 1.6 mg/dL (0.8-1.5) H 05/01/18 09:05 Estimated GFR 51 ml/min 05/01/18 09:05 BUN/Creatinine Ratio 22 % 05/01/18 09:05 Glucose 64 mg/dL (75-100) L 05/01/18 09:05 POC Glucose 114 (70-105) H 04/28/18 06:28 Lactic Acid 1.70 mmol/L (0.7-2.0) 04/19/18 15:13 Calcium 8.7 mg/dL (8.4-10.2) 05/01/18 09:05 Magnesium 2.20 mg/dL (1.7-2.3) 04/22/18 05:08 Total Bilirubin 1.10 mg/dL (0.1-1.2) 04/19/18 14:05 AST 64 units/L (5-40) H 04/19/18 14:05 ALT 78 units/L (7-56) H 04/19/18 14:05 Alkaline Phosphatase 95 units/L (35-129) 04/19/18 14:05 Total Creatine Kinase 41 units/L (55-170) L 04/25/18 06:17 CK-MB (CK-2) 3.3 ng/mL (0.0-4.0) 04/25/18 06:17 CK-MB (CK-2) Rel Index 8.0 (0-4) H 04/25/18 06:17 Troponin T 0.181 ng/mL (0.00-0.029) H* 04/25/18 06:17 Total Protein 6.4 g/dL (6.3-8.2) 04/19/18 14:05 Albumin 3.4 g/dL (3.9-5) L 04/19/18 14:05 Albumin/Globulin Ratio 1.1 % 04/19/18 14:05 Triglycerides 101 mg/dL (2-149) 04/25/18 06:17 Cholesterol 129 mg/dL (50-199) 04/25/18 06:17 LDL Cholesterol Direct 74 mg/dL (50-130) 04/25/18 06:17 HDL Cholesterol 32 mg/dL (40-59) L 04/25/18 06:17 Cholesterol/HDL Ratio 4.03 % 04/25/18 06:17 TSH 0.569 mlU/mL (0.270-4.200) 04/21/18 19:39 Urine Color Yellow (Yellow) 04/19/18 20:39 Urine Turbidity Clear (Clear) 04/19/18 20:39 Urine pH 5.0 (5.0-7.0) 04/19/18 20:39 Ur Specific [place] 1.019 (1.003-1.030) 04/19/18 20:39 Urine Protein 100 mg/dl mg/dL (Negative) 04/19/18 20:39 Urine Glucose (UA) Neg mg/dL (Negative) 04/19/18 20:39 Urine Ketones Neg mg/dL (Negative) 04/19/18 20:39 Urine Blood Mod (Negative) 04/19/18 20:39 Urine Nitrite Neg (Negative) 04/19/18 20:39 Urine Bilirubin Neg (Negative) 04/19/18 20:39 Urine Urobilinogen 2.0 mg/dL (<2.0) 04/19/18 20:39 Ur Leukocyte Esterase Neg (Negative) 04/19/18 20:39 Urine WBC (Auto) 2.0 /HPF (0.0-6.0) 04/19/18 20:39 Urine RBC (Auto) 2.0 /HPF (0.0-6.0) 04/19/18 20:39 Urine WBC Clumps 2+ /HPF 04/19/18 20:39 Amorphous Crystals 2+ 04/19/18 20:39
[2018-05-03] MEDS: DELTASONE PO SCH (10:40)
[2018-05-03] MEDS: LASIX PO SCH (10:40)
[2018-05-03] MEDS: PLAVIX PO SCH (10:40)
[2018-05-03] MEDS: ZESTRIL PO SCH (10:40)
[2018-05-03] MEDS: BABY ASPIRIN PO SCH (10:40)
--- NOTE | 2018-05-03 10:57 | Progress Note ---
Assessment and Plan Acute on chronic systolic heart failure Nonsustained ventricular tachycardia on amiodarone for suppression lifevest placed Dilated cardiomyopathy, EF 15-20% Coronary artery disease [facility] this admission: 1. 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 85-90% mid LAD stenosis-successfully treated with a 3.5X9 DE stent. Acute renal failure Recommend: Continue medical therapy for coronary artery disease, dilated cardiomyopathy and paroxysmal NSVT. Subjective Date of service: 05/03/18 Principal diagnosis: congestive heart failure Interval history: Patient has no cardiac complaints. Awaits placement. Objective Vital Signs Temp Pulse Pulse Resp Resp BP BP 05/03/18 08:23 20 05/03/18 07:39 66 05/03/18 07:38 97.9 F 64 18 120/68 05/03/18 06:30 98.4 F 67 18 130/69 05/02/18 23:42 98.6 F 67 18 128/72 05/02/18 22:00 67 2 L 05/02/18 21:27 61 20 05/02/18 21:10 63 20 05/02/18 20:16 98.8 F 67 18 114/50 05/02/18 16:23 98.5 F 69 18 112/61 05/02/18 14:49 80 20 05/02/18 14:40 77 20 05/02/18 12:50 98.2 F 67 18 122/64 05/02/18 12:47 98.0 F 82 20 148/60 05/02/18 12:03 98.2 F 69 18 122/64 Pulse Ox 05/03/18 08:23 05/03/18 07:39 99 05/03/18 07:38 99 05/03/18 06:30 96 05/02/18 23:42 96 05/02/18 22:00 05/02/18 21:27 05/02/18 21:10 95 05/02/18 20:16 97 05/02/18 16:23 89 05/02/18 14:49 05/02/18 14:40 05/02/18 12:50 96 05/02/18 12:47 99 05/02/18 12:03 95 - Physical Examination General: No Apparent Distress HEENT: Positive: PERRL Cardiac: Positive: Reg Rate and Rhythm Neuro: Positive: Grossly Intact
[2018-05-03] MEDS: ZITHROMAX PO SCH (11:53)
[2018-05-03] MEDS: IMDUR PO SCH (11:56)
[2018-05-03] MEDS ORDERED: KIONEX PO ONE (16:00)
[2018-05-04 06:48] LABS: Calcium 8.4 mg/dL (8.4-10.2)
[2018-05-04] MEDS: APRESOLINE PO SCH (07:06)
[2018-05-04] MEDS: DUONEB *Not for PRN Use IH SCH (09:14)
--- NOTE | 2018-05-04 09:22 | Progress Note ---
Assessment and Plan Acute on chronic systolic heart failure Nonsustained ventricular tachycardia on amiodarone for suppression lifevest placed Dilated cardiomyopathy, EF 15-20% Coronary artery disease [facility] this admission: 1. [employer]IM[employer]RAF[employer] of RCA-medical therapy 2. 85-90% mid LAD stenosis-successfully treated with a 3.5X9 DE stent. on DAPT with plavix and aspirin Acute renal failure Recommend: Continue medical therapy for coronary artery disease, dilated cardiomyopathy and paroxysmal NSVT. Subjective Date of service: 05/04/18 Principal diagnosis: congestive heart failure Interval history: Patient has no cardiac complaints. Awaits placement. Objective Vital Signs Temp Pulse Pulse Pulse Pulse Resp Resp 05/04/18 09:16 65 05/04/18 07:32 97.4 F L 60 20 05/04/18 07:06 67 05/04/18 04:45 97.5 F L 67 18 05/04/18 00:01 98.5 F 72 18 05/03/18 23:17 05/03/18 23:14 73 05/03/18 23:13 73 05/03/18 22:00 65 19 05/03/18 20:30 80 20 05/03/18 20:20 74 05/03/18 20:02 98.7 F 73 18 05/03/18 15:09 97.7 F 70 18 05/03/18 13:34 73 05/03/18 13:24 76 20 05/03/18 12:37 97.9 F 66 18 Resp Resp BP BP Pulse Ox 05/04/18 09:16 18 98 05/04/18 07:32 130/71 94 05/04/18 07:06 144/86 05/04/18 04:45 144/86 99 05/04/18 00:01 133/85 94 05/03/18 23:17 19 05/03/18 23:14 121/68 05/03/18 23:13 121/68 05/03/18 22:00 05/03/18 20:30 05/03/18 20:20 20 95 05/03/18 20:02 121/68 96 05/03/18 15:09 117/58 100 05/03/18 13:34 05/03/18 13:24 05/03/18 12:37 130/72 98 - Physical Examination General: No Apparent Distress HEENT: Positive: PERRL Cardiac: Positive: Reg Rate and Rhythm - Labs and Meds Comprehensive Metabolic Panel 05/04/18 Range/Units 05:45 Sodium 137 (137-145) mmol/L Potassium 4.6 (3.6-5.0) mmol/L Chloride 99.7 (98-107) mmol/L Carbon Dioxide 26 (22-30) mmol/L BUN 38 H (9-20) mg/dL Creatinine 1.6 H (0.8-1.5) mg/dL Glucose 115 H (75-100) mg/dL Calcium 8.4 (8.4-10.2) mg/dL
--- NOTE | 2018-05-04 10:06 | Discharge Summary ---
Providers - Providers Date of Admission: 04/20/18 02:24 Date of discharge: 05/04/18 Attending physician: MARIA EUGENIA NORRIS 04/19/18 20:56 Consult to Case Management [CONS] Routine Services Needed at Discharge: Other Notified:: y Was contact made?: Yes Additional Physician Instructions: Please send out for SNF placement as per family request. 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 04/24/18 Consult to Cardiac Rehabilitation [CONS] Routine Reason For Exam: post pci 04/27/18 13:55 Physical Therapy Evaluation and Treat [CONS] Stat Comment: Reason For Exam: Eval/treat, deconditioning/debility Primary care physician: REGISTERED NURSE AMBULATORY Hospitalization Condition: Fair Disposition: DC-30 STILL A PATIENT Exam - Constitutional Vitals: Temp Pulse Resp BP Pulse Ox 97.4 F L 67 19 130/71 98 05/04/18 07:32 05/04/18 09:27 05/04/18 09:27 05/04/18 07:32 05/04/18 09:16 Plan Diet: low fat, low cholesterol, low salt Follow up with: IKE RAVI MD [Primary Care Provider] - 3-5 Days ILA VAZQUEZ MD [Staff Physician] - 14 Days
[2018-05-04] MEDS: DELTASONE PO SCH (10:48)
[2018-05-04] MEDS: CORDARONE PO SCH (10:49)
[2018-05-04] MEDS: LASIX PO SCH (10:50)
[2018-05-04] MEDS: COREG PO SCH (10:50)
[2018-05-04] MEDS: BABY ASPIRIN PO SCH (10:51)
[2018-05-04] MEDS: ZESTRIL PO SCH (10:51)
[2018-05-04] MEDS: IMDUR PO SCH (10:52)
[2018-05-04] MEDS: PLAVIX PO SCH (10:52)
[2018-05-04] MEDS: ZITHROMAX PO SCH (10:54)
[2018-05-04] MEDS: KEPPRA PO SCH (10:54)
[2018-05-04] MEDS: HEPARIN SUB-Q SCH (10:57)
[2018-05-04 11:22] VITALS: BP 130/74
== END 2018-05-04 12:45 | DRG 853 ==
LOC: ED 12:51 → 2B-ACE 04-20 02:24 → 4A 04-24 17:06
PROVIDERS: ADMIT Internal Medicine; ATTEND Hospitalist
PROC: 4A023N7 Measurement of Cardiac Sampling and Pressure, Left Heart, Percutaneous Approach (ICD-10-PCS; principal; 2018-04-24)
PROC: B2110ZZ Fluoroscopy of Multiple Coronary Arteries using High Osmolar Contrast (ICD-10-PCS; 2018-04-24)
PROC: 027034Z Dilation of Coronary Artery, One Artery with Drug-eluting Intraluminal Device, Percutaneous Approach (ICD-10-PCS; 2018-04-24)
DX: A41.9 Sepsis, unspecified organism (principal); J96.01 Acute respiratory failure with hypoxia; J18.1 Lobar pneumonia, unspecified organism; I50.43 Acute on chronic combined systolic (congestive) and diastolic (congestive) heart failure; G93.41 Metabolic encephalopathy; N17.0 Acute kidney failure with tubular necrosis; I13.0 Hypertensive heart and chronic kidney disease with heart failure and stage 1 through stage 4 chronic kidney disease, or unspecified chronic kidney disease; I69.351 Hemiplegia and hemiparesis following cerebral infarction affecting right dominant side; I47.2 Ventricular tachycardia; I42.0 Dilated cardiomyopathy; I25.82 Chronic total occlusion of coronary artery; F03.90 Unspecified dementia, unspecified severity, without behavioral disturbance, psychotic disturbance, mood disturbance, and anxiety; I25.2 Old myocardial infarction; G40.909 Epilepsy, unspecified, not intractable, without status epilepticus; R13.10 Dysphagia, unspecified; N18.3 Chronic kidney disease, stage 3 (moderate); I25.10 Atherosclerotic heart disease of native coronary artery without angina pectoris
CPT/HCPCS: 36415; 71045; 74230; 80048; 80053; 80061; 81001; 82140; 82550; 82553; 82962; 83735; 84132; 84443; 84484; 85007; 85025; 85347; 85610; 87040; 87086; 92928; 93005; 93010; 93306; 93454; 94640; 94760; A9270-GY; C1769; C1874; C1887; C1894; C9600; G8978-GP; G8979-GP; G8988-GO; G8989-GO; G8996-GN; G8997-GN; G8998-GN; J0456; J0696; J1644; J2250; J3010; J7030; J7042; J7050; J7512; Q9967